=== PATIENT | female | born 1955 | race Caucasian/White ===

== ENCOUNTER 2019-06-29 16:36 | Inpatient (IN) | payer BC ==
[2019-06-29] MEDS ORDERED: SODIUM CHLORIDE 0.9% 1,000 ML IV STA (16:49)
[2019-06-29] MEDS ORDERED: DIAZEPAM 5 MG/ML 2 ML INJ IVP STA (17:05)
--- NOTE | 2019-06-29 17:30 | ED ---
Chest Pain HPI - General Chief Complaint: Chest Pain Stated Complaint: ABNORMAL LABS Time Seen by Provider: 06/29/19 16:49 Source: patient, RN notes reviewed, old records reviewed Mode of arrival: ambulatory Limitations: no limitations - History of Present Illness Initial Comments: This is a 63-year-old female the ER for evaluation. Patient presents today for evaluation with regards to multiple complaints headache chest pain weakness not feeling well. Patient did have outpatient laboratory increased renal function. He has not been feeling well for days now. She had some bilateral knee pain which she was getting injections for. Patient is is been feeling increasingly weak lately no recent change in medications no recent hospital admissions. Patient states she is he does see chiropractor for back pain but she was unable to make it feels appointments this week MD Complaint: chest pain, other (Headache back pain) -: days(s) Onset: during rest, during exertion Pain Location: substernal (Patient believes it anxiety related) Pain Radiation: none Severity: mild Severity scale (1-10): 3 Quality: heaviness Consistency: intermittent, now resolved Improves With: nothing Worsens With: nothing Context: recent illness Anginal Symptoms: dyspnea Other Symptoms: cough Treatments Prior to Arrival: none - Related Data Home Medications Medication Instructions Recorded Confirmed Colchicine [Colcrys] 0.6 mg PO DAILY 12/21/17 06/29/19 Enalapril [Vasotec] 2.5 mg PO DAILY 12/21/17 06/29/19 Ergocalciferol (Vitamin D2) 50,000 unit PO WE 12/21/17 06/29/19 [Vitamin D2] Levocetirizine Dihydrochloride 5 mg PO HS 12/21/17 06/29/19 Rosuvastatin [Crestor] 10 mg PO HS 12/21/17 06/29/19 Torsemide [Demadex] 20 mg PO BID 12/21/17 06/29/19 sitaGLIPtin [Januvia] 100 mg PO DAILY 12/21/17 06/29/19 oxyCODONE ER [OxyCONTIN] 20 mg PO TID 09/19/18 06/29/19 Gabapentin 600 mg PO TID 06/29/19 06/29/19 Isosorbide Mononitrate ER [Imdur] 30 mg PO DAILY 06/29/19 06/29/19 Nitroglycerin Sl Tabs [Nitrostat] 0.4 mg SUBLINGUAL Q5M PRN 06/29/19 06/29/19 Allergies Allergy/AdvReac Type Severity Reaction Status Date / Time adhesive Allergy Rash/Hives Verified 06/29/19 16:58 Sulfa (Sulfonamide Allergy Anaphylaxis Verified 06/29/19 16:58 Antibiotics) Review of Systems ROS Statement: Those systems with pertinent positive or pertinent negative responses have been documented in the HPI. ROS Other: All systems not noted in ROS Statement are negative. EKG Findings - EKG Comments: EKG Findings:: EKG shows sinus rhythm rate of 89, SC 180, QRS 150, QTc 470 Past Medical History Past Medical History: Diabetes Mellitus, Osteoarthritis (OA), Renal Disease Additional Past Medical History / Comment(s): states back pain, current "creacked bone in left ankle wrapped with [place] wrap CURRENTLY USING CRUTCHES broke left ankle aug 26 2018. in boot History of Any Multi-Drug Resistant Organisms: None Reported Past Surgical History: Appendectomy, Section, Cholecystectomy, Tonsillectomy, Tubal Ligation Additional Past Surgical History / Comment(s): carpal tunnel both wrists,shoulder surgery Past Anesthesia/Blood Transfusion Reactions: No Reported Reaction Past Psychological History: No Psychological Hx Reported Smoking Status: Former smoker Past Alcohol Use History: Occasional Past Drug Use History: None Reported - Past Family History Mother Family Medical History: Cancer, Coronary Artery Disease (CAD), Diabetes Mellitus Father Family Medical History: Coronary Artery Disease (CAD), Diabetes Mellitus General Exam Limitations: no limitations General appearance: alert, in no apparent distress Head exam: Present: atraumatic, normocephalic, normal inspection Eye exam: Present: normal appearance, PERRL, EOMI. Absent: scleral icterus, conjunctival injection, periorbital swelling ENT exam: Present: normal exam, mucous membranes moist Neck exam: Present: normal inspection. Absent: tenderness, meningismus, lymphadenopathy Respiratory exam: Present: normal lung sounds bilaterally. Absent: respiratory distress, wheezes, rales, rhonchi, stridor Cardiovascular Exam: Present: regular rate, normal rhythm, normal heart sounds. Absent: systolic murmur, diastolic murmur, rubs, gallop, clicks GI/Abdominal exam: Present: soft, normal bowel sounds. Absent: distended, tenderness, guarding, rebound, rigid Extremities exam: Present: normal inspection, full ROM, normal capillary refill. Absent: tenderness, pedal edema, joint swelling, calf tenderness Back exam: Present: normal inspection Neurological exam: Present: alert, oriented X3, CN II-XII intact Psychiatric exam: Present: normal affect, normal mood Skin exam: Present: warm, dry, intact, normal color. Absent: rash Course Vital Signs 06/29/19 06/29/19 16:43 18:00 Temperature 98.5 F Pulse Rate 100 81 Respiratory 22 18 Rate Blood Pressure 118/63 117/84 O2 Sat by Pulse 94 L 95 Oximetry - Reevaluation(s) Reevaluation #1: 06/29/19 19:05 Medical records reviewed Reevaluation #2: 06/29/19 19:05 Patient is having persistent chest pain no EKG changes elevated troponin Chest Pain MDM - MDM 63 female the ER for evaluation patient presents today for evaluation of chest pain not feeling well place she's having some anxiety. Patient having elevated troponin and non-ST elevated OH will admit for cardiac observation Critical Care Time Critical Care Time: Yes Total Critical Care Time: 31 Disposition Clinical Impression: NSTEMI (non-ST elevated myocardial infarction), Chest pain, ARF (acute renal failure) Disposition: ADMITTED IP TO THIS [facility] Condition: Serious Is patient prescribed a controlled substance at d/c from ED?: No Referrals: Darron Mcgee MD [Primary Care Provider] - 1-2 days
[2019-06-29 17:48] LABS: Anisocytosis Slight; HCT 27.9 % (34.0-46.0); MCH 27.6 pg (25.0-35.0); MCHC 34.6 g/dL (31.0-37.0); MCV 79.9 fL (80.0-100.0); Mean Platelet Volume 7.4; Microcytosis Slight; Platelet Count 354 k/uL (150-450); Poikilocytosis Slight; RBC 3.49 m/uL (3.80-5.40); RDW 17.6 % (11.5-15.5); WBC 9.7 k/uL (3.8-10.6)
[2019-06-29 17:49] LABS: HGB 9.6 gm/dL (11.4-16.0)
[2019-06-29 17:50] LABS: INR 0.9 (<1.2); Partial Thromboplastin Time 23.3 sec (22.0-30.0)
[2019-06-29 17:56] LABS: Albumin 3.2 g/dL (3.5-5.0); Calcium 8.6 mg/dL (8.4-10.2); Magnesium 1.6 mg/dL (1.6-2.3); Total Bilirubin 0.5 mg/dL (0.2-1.3); Total Protein 5.9 g/dL (6.3-8.2)
--- NOTE | 2019-06-29 17:59 | CT ---
EXAMINATION TYPE: CT brain wo con DATE OF EXAM: 06/29/2019 COMPARISON: None HISTORY: Weakness. CT DLP: 1098.4 mGycm Automated exposure control for dose reduction was used. FINDINGS: There is mild cerebral atrophy. There is no mass effect nor midline shift. There is no sign of intrac ranial hemorrhage. Calvarium is intact. IMPRESSION: NEGATIVE CT SCAN OF THE BRAIN.
--- NOTE | 2019-06-29 18:00 | XR ---
EXAMINATION TYPE: XR chest 2V DATE OF EXAM: 06/29/2019 COMPARISON: NONE HISTORY: Chest pain TECHNIQUE: Frontal and lateral views of the chest are obtained. FINDINGS: There is elevated right diaphragm. There is mild coarsening of interstitial markings. Hear t size is normal. Bony thorax is intact. There is no heart failure. IMPRESSION: Poor inspiration with atelectasis at the lung bases. No heart failure.
[2019-06-29 18:16] LABS: Band Neutrophils % 4 %; Eosinophils # (M) 0.29 k/uL (0-0.7); Hypersegmented Neutrophils Present; Lymphocytes # (M) 1.36 k/uL (1.0-4.8); Metamyelocytes # (M) 0.19 k/uL (0); Metamyelocytes % 2 %; Monocytes # (M) 0.97 k/uL (0-1.0); Neutrophils % (M) 68 %; Nucleated Red Blood Cells 0 /100 WBC (0-0); Total Cells Counted 200
[2019-06-29 18:17] LABS: Polychromasia Present
[2019-06-29] MEDS ORDERED: ASPIRIN 81 MG PO STA (19:02)
[2019-06-29] MEDS ORDERED: HEPARIN SODIUM,PORCINE 5,000 UNIT/ML 1 ML VIAL IV ONE (19:02)
[2019-06-29] MEDS ORDERED: HEPARIN SODIUM,PORCINE 5,000 UNIT/ML 1 ML VIAL IV PRN (19:02)
[2019-06-29] MEDS ORDERED: HEPARIN SOD,PORK IN 0.45% NACL 25,000 UNIT in 0.45% NACL 1 250ML.BAG IV SCH (19:15)
[2019-06-29 20:28] LABS: Glucose,Whole Blood 190 mg/dL (75-99)
[2019-06-29 20:56] VITALS: BMI 30.7
[2019-06-29] MEDS ORDERED: COLCHICINE 0.6 MG EACH PO SCH (21:30)
[2019-06-29] MEDS ORDERED: TORSEMIDE 20 MG TAB PO SCH (21:30)
[2019-06-29] MEDS: ATORVASTATIN 10 MG TAB PO SCH (21:43)
[2019-06-29] MEDS: NITROGLYCERIN SL TABS 0.4 MG TAB SUBLINGUAL PRN ×2 (22:05→22:11)
[2019-06-29] MEDS: LORATADINE 10 MG TAB PO SCH (22:06)
[2019-06-29] MEDS: METOPROLOL TARTRATE 25 MG TAB PO SCH (22:06)
[2019-06-29] MEDS: oxyCODONE ER 20 MG TAB.ER.12H PO SCH (22:07)
[2019-06-29] MEDS: GABAPENTIN 300 MG CAP PO SCH (22:07)
[2019-06-30] MEDS: NITROGLYCERIN SL TABS 0.4 MG TAB SUBLINGUAL PRN ×6 (03:42→17:12)
[2019-06-30] MEDS ORDERED: HYDROmorphone 0.5 MG/0.5 ML SYRINGE IVP STA (04:14)
[2019-06-30] MEDS: NITROGLYCERIN OINT 1 INCH/GM PACKET TOPICAL SCH ×2 (04:28→06:19)
[2019-06-30] MEDS ORDERED: NITROGLYCERIN OINT 1 INCH/GM PACKET TOPICAL SCH (06:00)
[2019-06-30 06:20] LABS: Glucose,Whole Blood 116 mg/dL (75-99)
[2019-06-30 06:55] LABS: Platelet Count 318 k/uL (150-450)
[2019-06-30 07:15] LABS: Cholesterol 87 mg/dL (<200); HDL Cholesterol 27 mg/dL (40-60); LDL Cholesterol,Calculated 19 mg/dL (0-99); Triglycerides 206 mg/dL (<150)
[2019-06-30] MEDS ORDERED: TORSEMIDE 20 MG TAB PO SCH (09:00)
[2019-06-30] MEDS ORDERED: ASPIRIN 325 MG TAB PO SCH (09:00)
[2019-06-30] MEDS: GABAPENTIN 300 MG CAP PO SCH ×3 (09:16→20:12)
[2019-06-30] MEDS: COLCHICINE 0.6 MG EACH PO SCH (09:16)
[2019-06-30] MEDS: METOPROLOL TARTRATE 25 MG TAB PO SCH (09:17)
[2019-06-30] MEDS: oxyCODONE ER 20 MG TAB.ER.12H PO SCH ×3 (09:18→22:57)
[2019-06-30] MEDS ORDERED: SODIUM CHLORIDE 0.9% 1,000 ML in EMPTY BAG 1 BAG IV ONE (09:18)
[2019-06-30] MEDS ORDERED: ATORVASTATIN 80 MG TAB PO STA (09:18)
[2019-06-30] MEDS ORDERED: ALPRAZolam 0.25 MG TAB PO PRN (09:18)
[2019-06-30] MEDS ORDERED: ALPRAZolam 0.5 MG TAB PO PRN (09:18)
--- NOTE | 2019-06-30 09:40 | P.CRDCN ---
History of Present Illness Consult date: 06/30/19 Requesting physician: Lynn Duggan Reason for Consult (text): NSTEMI Chief complaint: feeling tired, recurrent chest pain History of present illness: Disciplines 63-year-old female patient who follows with Dr. Villagomez in the office. She has a history of hyperlipidemia, hypertension, PVD, diabetes, RA, CKD, and history of cardiac catheterization in 2006 which showed a 20% lesion in the mid RCA. She was recently seen in the office with complaints of recurrent chest discomfort radiating to the neck and back that occurred predominantly with mental stress. Symptoms were requiring use of nitroglycerin at home. She was scheduled to undergo cardiac catheterization within the next week. Presented to the emergency department after being called by her primary care physician and told that her kidney function was down. Overall over the past several days she's been feeling very tired and wants to sleep quite a bit. She continues to have recurrent chest discomfort and at times taking up to 6 nitroglycerin tablets. She says she cannot recall any of the day on Tuesday and is unsure why. EKG on admission showed sinus rhythm with a right bundle branch block with mild T-wave changes compared to EKG done on the of this month in the office. Labs on admission showed hemoglobin 9.6 which is down from 11.5. BUN of 41 and creatinine of 1.27 which are stable. NT proBNP is elevated at 4330. Troponins have been elevated at 0.128, 0.16 and 0.098. She continues to have recurrent chest discomfort which is at times relieved with a glycerin. Radiates posteriorly with some worsening in her symptoms with deep inspiration. She's had no complaints of shortness of breath, orthopnea or PND. She does have mild edema which she attributes to recent ankle surgery. She denies bleeding. She did have some nausea on Tuesday night which she thinks is related to something she ate. She's had no diaphoresis, dizziness or lightheadedness, and no palpitations. Past Medical History Past Medical History: Diabetes Mellitus, Osteoarthritis (OA), Renal Disease Additional Past Medical History / Comment(s): states back pain, current "creacked bone in left ankle wrapped with [place] wrap CURRENTLY USING CRUTCHES broke left ankle aug 26 2018. History of Any Multi-Drug Resistant Organisms: None Reported Past Surgical History: Appendectomy, Section, Cholecystectomy, Heart Catheterization, Tonsillectomy, Tubal Ligation Additional Past Surgical History / Comment(s): carpal tunnel both wrists,shoulder surgery, ankle reconstruction. Past Anesthesia/Blood Transfusion Reactions: No Reported Reaction Past Psychological History: No Psychological Hx Reported Smoking Status: Former smoker Past Alcohol Use History: Occasional Additional Past Alcohol Use History / Comment(s): Quit smoking 40 yrs ago, smoked 2ppd for 10 yrs. Past Drug Use History: None Reported - Past Family History Mother Family Medical History: Cancer, Coronary Artery Disease (CAD), Diabetes Mellitus Father Family Medical History: Coronary Artery Disease (CAD), Diabetes Mellitus Medications and Allergies Home Medications Medication Instructions Recorded Confirmed Type Colchicine [Colcrys] 0.6 mg PO BID 12/21/17 06/29/19 History Enalapril [Vasotec] 2.5 mg PO DAILY 12/21/17 06/29/19 History Ergocalciferol (Vitamin D2) 50,000 unit PO WE 12/21/17 06/29/19 History [Vitamin D2] Levocetirizine Dihydrochloride 5 mg PO HS 12/21/17 06/29/19 History Rosuvastatin [Crestor] 10 mg PO HS 12/21/17 06/29/19 History Torsemide [Demadex] 20 mg PO BID 12/21/17 06/29/19 History sitaGLIPtin [Januvia] 100 mg PO DAILY 12/21/17 06/29/19 History oxyCODONE ER [OxyCONTIN] 20 mg PO TID 09/19/18 06/29/19 History Gabapentin 600 mg PO TID 06/29/19 06/29/19 History Isosorbide Mononitrate ER [Imdur] 30 mg PO DAILY 06/29/19 06/29/19 History Nitroglycerin Sl Tabs [Nitrostat] 0.4 mg SUBLINGUAL Q5M PRN 06/29/19 06/29/19 History Allergies Allergy/AdvReac Type Severity Reaction Status Date / Time adhesive Allergy Rash/Hives Verified 06/29/19 16:58 Sulfa (Sulfonamide Allergy Anaphylaxis Verified 06/29/19 16:58 Antibiotics) Physical Exam Vitals: Vital Signs Temp Pulse Pulse Resp BP BP Pulse Ox 06/30/19 09:10 97.6 F 64 16 100/53 98 06/30/19 09:03 68 88/47 06/30/19 08:58 64 108/56 06/30/19 08:53 67 113/58 06/30/19 04:26 107/59 06/30/19 03:56 63 97/53 06/30/19 03:50 68 15 101/59 93 L 06/30/19 03:43 65 15 107/51 96 06/29/19 23:32 98.4 F 78 16 111/52 95 06/29/19 22:13 84 110/54 06/29/19 22:03 79 16 128/60 95 06/29/19 20:43 98.1 F 85 16 120/57 96 06/29/19 19:31 90 18 117/84 97 06/29/19 18:00 81 18 117/84 95 06/29/19 16:43 98.5 F 100 22 118/63 94 L Intake and Output 06/29/19 06/30/19 06/30/19 22:59 06:59 14:59 Other: Voiding Method Toilet # Voids 3 Weight 81.193 kg 90.3 kg PHYSICAL EXAMINATION: HEENT: Head is atraumatic, normocephalic. Pupils equal, round. Neck is supple. There is no elevated jugular venous pressure. HEART EXAMINATION: Heart sounds regular, S1 and S2 with a systolic murmur at the base. CHEST EXAMINATION: Lungs are clear to auscultation and precussion. No chest wall tenderness is noted on palpation or with deep breathing. ABDOMEN: Soft, nontender. Bowel sounds are heard. No organomegaly noted. EXTREMITIES: 2+ peripheral pulses with no evidence of peripheral edema and no calf tenderness noted. NEUROLOGIC patient is awake, alert and oriented x3. . Results 06/30/19 05:44 06/29/19 17:25 Cardiac Enzymes 06/29/19 06/29/19 06/29/19 Range/Units 17:25 17:25 23:14 AST 42 H (14-36) U/L Troponin I 0.128 H* 0.116 H* (0.000-0.034) ng/mL 06/30/19 Range/Units 05:44 AST (14-36) U/L Troponin I 0.098 H* (0.000-0.034) ng/mL Coagulation 06/29/19 06/29/19 Range/Units 17:25 23:14 PT 10.0 (9.0-12.0) sec APTT 23.3 23.8 (22.0-30.0) sec Lipids 06/30/19 Range/Units 05:44 Triglycerides 206 H (<150) mg/dL Cholesterol 87 (<200) mg/dL HDL Cholesterol 27 L (40-60) mg/dL CBC 06/29/19 06/30/19 Range/Units 17:25 05:44 WBC 9.7 (3.8-10.6) k/uL RBC 3.49 L (3.80-5.40) m/uL Hgb 9.6 L D (11.4-16.0) gm/dL Hct 27.9 L (34.0-46.0) % Plt Count 354 318 (150-450) k/uL Comprehensive Metabolic Panel 06/29/19 Range/Units 17:25 Sodium 133 L (137-145) mmol/L Potassium 4.0 (3.5-5.1) mmol/L Chloride 96 L (98-107) mmol/L Carbon Dioxide 29 (22-30) mmol/L BUN 41 H (7-17) mg/dL Creatinine 1.27 H (0.52-1.04) mg/dL Glucose 128 H (74-99) mg/dL Calcium 8.6 (8.4-10.2) mg/dL AST 42 H (14-36) U/L ALT 75 H (9-52) U/L Alkaline Phosphatase 53 (38-126) U/L Total Protein 5.9 L (6.3-8.2) g/dL Albumin 3.2 L (3.5-5.0) g/dL Current Medications Generic Name Dose Route Start Last Admin Trade Name Freq PRN Reason Stop Dose Admin Aspirin 325 mg 06/30/19 09:00 Aspirin PO DAILY [facility] Atorvastatin Calcium 20 mg 06/29/19 21:30 06/29/19 21:43 Lipitor PO Not Given HS [facility] Colchicine 0.6 mg 06/30/19 09:00 Colcrys PO DAILY TE Gabapentin 600 mg 06/29/19 22:00 06/29/19 22:07 Neurontin PO 600 mg TID TE Administration Heparin Sodium (Porcine) 0 unit 06/29/19 19:02 Heparin IV Q6HR PRN Low PTT Protocol Heparin Sodium/Sodium Chloride 250 mls @ 9.743 mls/hr 06/29/19 19:15 06/29/19 19:22 25,000 unit/ Sodium Chloride IV Not Given .Q24H TE Protocol 12 UNITS/KG/HR Loratadine 10 mg 06/29/19 21:30 06/29/19 22:06 Claritin PO 10 mg HS TE Administration Metoprolol Tartrate 25 mg 06/29/19 21:00 06/29/19 22:06 Lopressor PO 25 mg BID TE Administration Nitroglycerin 0.4 mg 06/29/19 19:02 06/30/19 08:59 Nitrostat SUBLINGUAL 0.4 mg Q5M PRN Administration Chest Pain Nitroglycerin 0.5 inch 06/30/19 04:22 06/30/19 06:19 Nitro-Bid Oint TOPICAL Not Given Q6HR TE Oxycodone HCl 20 mg 06/29/19 22:00 06/29/19 22:07 Oxycontin 20mg E.R. PO 20 mg TID TE Administration Torsemide 10 mg 06/30/19 09:00 Demadex PO BID@0900,1600 TE Intake and Output 06/29/19 06/30/19 06/30/19 22:59 06:59 14:59 Other: Voiding Method Toilet # Voids 3 Weight 81.193 kg 90.3 kg 06/30/19 05:44 06/29/19 17:25 Assessment and Plan Assessment: #1 symptoms of recurrent chest pain with troponin elevation and EKG changes #2 diabetes mellitus #3 hyperlipidemia #4 rheumatoid arthritis #5 chronic kidney disease #6 known 20% lesion in the mid RCA seen on cardiac catheterization from 2006 Plan: From securities lending trader perspective, we will obtain a 2-D echo with Doppler. We will schedule the patient to undergo left heart cath today with possible PCI. The procedure has been explained to the patient including the risks, benefits, side effects and alternative therapies as well as potential outcomes. The patient is agreeable to proceed with the procedure. Further recommendations will be based on the findings of cardiac catheterization. TIP CEMENTER note has been reviewed, I agree with a documented findings and plan of care. Patient was seen and examined.
--- NOTE | 2019-06-30 09:48 | P.HPIM ---
History of Present Illness Patient is a pleasant was 4-year-old female came in with compensative chest pressure like sensation under the breast radiating to the neck area has been going on for few days worsens when she gets anxious not associated with exertion denied any pleuritic competent of chest pain not associated with food moderate amount of chest pain. Denied any diaphoresis nausea lightheadedness. Patient although does have headache symptoms dementia chest pain. Patient to be was supposed to get an outpatient cardiac catheterization because of her EKG changes as per the patient in the past. Patient had a cardiac ablation in 2011 which did not show any significant atherosclerotic occlusive disease that needed intervention. Patient has minimally elevated troponin although patient does have elevated serum creatinine of 1.2 which is around her baseline. Patient is on multiple medications that can affect her kidney including RANDY inhibitor and Demadex. Patient clinically is not in heart failure although patient has elevated BNP doesn't have any significant JVD. Chest x-ray did not show any pulmonary edema. Patient is also bit hyponatremic because of which I'm cutting down on the Demadex dose RANDY inhibitor is being temperately held because of the renal failure which is mostly chronic. Patient has minimal stable elevation of troponins but the can be from kidney disease. Review of Systems REVIEW OF SYSTEMS: CONSTITUTIONAL: No fever, no malaise, no fatigue. HEENT: No recent visual problems or hearing problems. Denied any sore throat. CARDIOVASCULAR: As mentioned above PULMONARY: No shortness of breath, no cough, no hemoptysis. GASTROINTESTINAL: No diarrhea, no nausea, no vomiting, no abdominal pain. NEUROLOGICAL: No headaches, no weakness, no numbness. HEMATOLOGICAL: Denies any bleeding or petechiae. GENITOURINARY: Denies any burning micturition, frequency, or urgency. MUSCULOSKELETAL/RHEUMATOLOGICAL: Denies any joint pain, swelling, or any muscle pain. ENDOCRINE: Denies any polyuria or polydipsia. The rest of the 14-point review of systems is negative. Past Medical History Past Medical History: Diabetes Mellitus, Osteoarthritis (OA), Renal Disease Additional Past Medical History / Comment(s): states back pain, current "creacked bone in left ankle wrapped with randy wrap CURRENTLY USING CRUTCHES broke left ankle aug 26 2018. History of Any Multi-Drug Resistant Organisms: None Reported Past Surgical History: Appendectomy, Section, Cholecystectomy, Heart Catheterization, Tonsillectomy, Tubal Ligation Additional Past Surgical History / Comment(s): carpal tunnel both wrists,shoulder surgery, ankle reconstruction. Past Anesthesia/Blood Transfusion Reactions: No Reported Reaction Past Psychological History: No Psychological Hx Reported Smoking Status: Former smoker Past Alcohol Use History: Occasional Additional Past Alcohol Use History / Comment(s): Quit smoking 40 yrs ago, smoked 2ppd for 10 yrs. Past Drug Use History: None Reported - Past Family History Mother Family Medical History: Cancer, Coronary Artery Disease (CAD), Diabetes Mellitus Father Family Medical History: Coronary Artery Disease (CAD), Diabetes Mellitus Medications and Allergies Home Medications Medication Instructions Recorded Confirmed Type Colchicine [Colcrys] 0.6 mg PO BID 12/21/17 06/29/19 History Enalapril [Vasotec] 2.5 mg PO DAILY 12/21/17 06/29/19 History Ergocalciferol (Vitamin D2) 50,000 unit PO WE 12/21/17 06/29/19 History [Vitamin D2] Levocetirizine Dihydrochloride 5 mg PO HS 12/21/17 06/29/19 History Rosuvastatin [Crestor] 10 mg PO HS 12/21/17 06/29/19 History Torsemide [Demadex] 20 mg PO BID 12/21/17 06/29/19 History sitaGLIPtin [Januvia] 100 mg PO DAILY 12/21/17 06/29/19 History oxyCODONE ER [OxyCONTIN] 20 mg PO TID 09/19/18 06/29/19 History Gabapentin 600 mg PO TID 06/29/19 06/29/19 History Isosorbide Mononitrate ER [Imdur] 30 mg PO DAILY 06/29/19 06/29/19 History Nitroglycerin Sl Tabs [Nitrostat] 0.4 mg SUBLINGUAL Q5M PRN 06/29/19 06/29/19 History Allergies Allergy/AdvReac Type Severity Reaction Status Date / Time adhesive Allergy Rash/Hives Verified 06/29/19 16:58 Sulfa (Sulfonamide Allergy Anaphylaxis Verified 06/29/19 16:58 Antibiotics) Physical Exam Vitals: Vital Signs Temp Pulse Pulse Resp BP BP Pulse Ox 06/30/19 09:10 97.6 F 64 16 100/53 98 06/30/19 09:03 68 88/47 06/30/19 08:58 64 108/56 06/30/19 08:53 67 113/58 06/30/19 04:26 107/59 06/30/19 03:56 63 97/53 06/30/19 03:50 68 15 101/59 93 L 06/30/19 03:43 65 15 107/51 96 06/29/19 23:32 98.4 F 78 16 111/52 95 06/29/19 22:13 84 110/54 06/29/19 22:03 79 16 128/60 95 06/29/19 20:43 98.1 F 85 16 120/57 96 06/29/19 19:31 90 18 117/84 97 06/29/19 18:00 81 18 117/84 95 06/29/19 16:43 98.5 F 100 22 118/63 94 L Intake and Output 06/29/19 06/30/19 06/30/19 22:59 06:59 14:59 Other: Voiding Method Toilet # Voids 3 Weight 81.193 kg 90.3 kg PHYSICAL EXAMINATION: GENERAL: The patient is alert and oriented x3, not in any acute distress. Well developed, well nourished. HEENT: Pupils are round and equally reacting to light. EOMI. No scleral icterus. No conjunctival pallor. Normocephalic, atraumatic. No pharyngeal erythema. No thyromegaly. CARDIOVASCULAR: S1 and S2 present. No murmurs, rubs, or gallops. PULMONARY: Chest is clear to auscultation, no wheezing or crackles. ABDOMEN: Soft, nontender, nondistended, normoactive bowel sounds. No palpable organomegaly. MUSCULOSKELETAL: No joint swelling or deformity. EXTREMITIES: No cyanosis, clubbing, or pedal edema. NEUROLOGICAL: Gross neurological examination did not reveal any focal deficits. SKIN: No rashes. Results CBC & Chem 7: 06/30/19 05:44 06/29/19 17:25 Labs: Abnormal Lab Results - Last 24 Hours (Table) 06/29/19 06/29/19 06/29/19 Range/Units 17:25 17:25 17:25 RBC 3.49 L (3.80-5.40) m/uL Hgb 9.6 L D (11.4-16.0) gm/dL Hct 27.9 L (34.0-46.0) % MCV 79.9 L (80.0-100.0) fL RDW 17.6 H (11.5-15.5) % Metamyelocytes # (Man) 0.19 H (0) k/uL Sodium 133 L (137-145) mmol/L Chloride 96 L (98-107) mmol/L BUN 41 H (7-17) mg/dL Creatinine 1.27 H (0.52-1.04) mg/dL Glucose 128 H (74-99) mg/dL POC Glucose (mg/dL) (75-99) mg/dL AST 42 H (14-36) U/L ALT 75 H (9-52) U/L Troponin I 0.128 H* (0.000-0.034) ng/mL Total Protein 5.9 L (6.3-8.2) g/dL Albumin 3.2 L (3.5-5.0) g/dL Triglycerides (<150) mg/dL HDL Cholesterol (40-60) mg/dL 06/29/19 06/29/19 06/30/19 Range/Units 20:27 23:14 05:44 RBC (3.80-5.40) m/uL Hgb (11.4-16.0) gm/dL Hct (34.0-46.0) % MCV (80.0-100.0) fL RDW (11.5-15.5) % Metamyelocytes # (Man) (0) k/uL Sodium (137-145) mmol/L Chloride (98-107) mmol/L BUN (7-17) mg/dL Creatinine (0.52-1.04) mg/dL Glucose (74-99) mg/dL POC Glucose (mg/dL) 190 H (75-99) mg/dL AST (14-36) U/L ALT (9-52) U/L Troponin I 0.116 H* 0.098 H* (0.000-0.034) ng/mL Total Protein (6.3-8.2) g/dL Albumin (3.5-5.0) g/dL Triglycerides (<150) mg/dL HDL Cholesterol (40-60) mg/dL 06/30/19 06/30/19 Range/Units 05:44 06:18 RBC (3.80-5.40) m/uL Hgb (11.4-16.0) gm/dL Hct (34.0-46.0) % MCV (80.0-100.0) fL RDW (11.5-15.5) % Metamyelocytes # (Man) (0) k/uL Sodium (137-145) mmol/L Chloride (98-107) mmol/L BUN (7-17) mg/dL Creatinine (0.52-1.04) mg/dL Glucose (74-99) mg/dL POC Glucose (mg/dL) 116 H (75-99) mg/dL AST (14-36) U/L ALT (9-52) U/L Troponin I (0.000-0.034) ng/mL Total Protein (6.3-8.2) g/dL Albumin (3.5-5.0) g/dL Triglycerides 206 H (<150) mg/dL HDL Cholesterol 27 L (40-60) mg/dL Thrombosis Risk Factor Assmnt - Choose All That Apply Any of the Below Risk Factors Present?: Yes Each Factor Represents 1 point: Obesity (BMI >25), Swollen legs (current) Each Risk Factor Represents 2 Points: Age 61-74 years Other congenital or acquired thrombophilia - If yes, enter type in comment: No Thrombosis Risk Factor Assessment Total Risk Factor Score: 4 Thrombosis Risk Factor Assessment Level: Moderate Risk Assessment and Plan Plan: Chest pain, possibly of non-ST elevation microinfarction cannot be ruled out: Patient will undergo cardiac catheterization today as per cardiology. Patient is declining heparin at this time -Type 2 diabetes mellitus -Congestive heart failure as per the patient ejection fraction is not known patient is not in acute exacerbation -Acute renal failure probably prerenal azotemia secondary to excessive diuretic therapy although I cannot rule out chronic kidney disease stage II from diabetes mellitus RANDY inhibitor will be temporally held -Rheumatoid arthritis -Hyponatremia secondary to diuretics will cut down the dose of diuretic DVT prophylaxis early ambulation
[2019-06-30] MEDS ORDERED: IV FLUID CONTINUATION 950 ML IV ONE (11:05)
[2019-06-30] MEDS ORDERED: LIDOCAINE 1% INJ 10MG/ML (20 ML MDV) ONE (11:21)
[2019-06-30] MEDS ORDERED: VERAPAMIL 2.5 MG/ML 2 ML AMP ONE (11:22)
[2019-06-30] MEDS ORDERED: HEPARIN SODIUM 1,000 UN/ML (10ML VL) ONE (11:23)
[2019-06-30] MEDS ORDERED: fentaNYL (PF) 50 MCG/ML 2 ML AMP ONE (11:25)
[2019-06-30] MEDS: fentaNYL (PF) 50 MCG/ML 2 ML AMP IV ONE ×2 (11:35→11:40)
[2019-06-30] MEDS ORDERED: LIDOCAINE 1% INJ 10MG/ML (20 ML MDV) SQ ONE (11:46)
[2019-06-30] MEDS ORDERED: VERAPAMIL SYRINGE (5 MG/10 ML) INTRAARTER ONE (11:48)
[2019-06-30] MEDS ORDERED: MIDAZOLAM (PF) 2 MG/2 ML VIAL IV ONE (11:50)
[2019-06-30] MEDS ORDERED: IOPAMIDOL-370 125ML BTL INJ ONE (12:08)
[2019-06-30] MEDS ORDERED: CLOPIDOGREL 75 MG TAB ONE (12:10)
[2019-06-30] MEDS ORDERED: CLOPIDOGREL 75 MG TAB PO ONE (12:15)
[2019-06-30] MEDS ORDERED: RX INFO: IV CONTRAST WAS GIVEN 1 EACH MISC MISCELLANE PRN (12:20)
[2019-06-30] MEDS ORDERED: ISOSORBIDE MONONITRATE ER 30 MG TAB.ER.24H PO SCH (12:30)
[2019-06-30] MEDS ORDERED: SODIUM CHLORIDE 0.9% 1,000 ML IV SCH (12:30)
--- NOTE | 2019-06-30 15:50 | ECHOF ---
Referral Reason:NSTEMI MEASUREMENTS -------- HEIGHT: 162.6 cm WEIGHT: 90.3 kg BP: RVIDd: 4.3 cm (< 3.3) IVSd: 1.3 cm (0.6 - 1.1) LVIDd: 4.4 cm (3.9 - 5.3) LVPWd: 1.5 cm (0.6 - 1.1) IVSs: 1.7 cm LVIDs: 2.9 cm LVPWs: 1.2 cm LA Diam: 3.9 cm (2.7 - 3.8) LAESV Index (A-L): 27.29 ml/m Ao Diam: 3.0 cm (2.0 - 3.7) AV Cusp: 2.0 cm (1.5 - 2.6) LA Diam: 3.4 cm (2.7 - 3.8) MV EXCURSION: 18.351 mm (> 18.000) MV EF SLOPE: 101 mm/s (70 - 150) EPSS: 0.3 cm MV E Giuliano: 0.55 m/s MV DecT: 223 ms MV A Giuliano: 0.76 m/s MV E/A Ratio: 0.72 RAP: 5.00 mmHg RVSP: 50.10 mmHg FINDINGS -------- Sinus rhythm. This was a technically adequate study. The left ventricular size is normal. There is mild concentric left ventricular hypertrophy. Overa ll left ventricular systolic function is low-normal with, an EF between 50 - 55 %. The diastolic fi lling pattern is normal for the age of the patient 11.83. Basal inferior LV wall motion is hypokine tic. The right ventricle is moderately enlarged. Normal LA size by volume 22+/-6 ml/m2. The right atrial size is normal. There is mild aortic valve sclerosis. There is no evidence of aortic regurgitation. Mild mitral annular calcification present. Mild mitral regurgitation is present. Unyb-oj-[id number] tricuspid regurgitation present. There is moderate pulmonary hypertension. The r ight ventricular systolic pressure, as measured by Doppler, is 50.10mmHg. Trace/mild (physiologic) pulmonic regurgitation. The aortic root size is normal. There is no pericardial effusion. CONCLUSIONS -------- 1. Sinus rhythm. 2. This was a technically adequate study. 3. The left ventricular size is normal. 4. Overall left ventricular systolic function is low-normal with, an EF between 50 - 55 %. 5. The diastolic filling pattern is normal for the age of the patient 11.83 6. Basal inferior LV wall motion is hypokinetic. 7. The right ventricle is moderately enlarged. 8. Normal LA size by volume 22+/-6 ml/m2. 9. There is mild aortic valve sclerosis. 10. Mild mitral annular calcification present. 11. Mild mitral regurgitation is present. 12. Ulic-xa-ermxdsqa tricuspid regurgitation present. 13. There is moderate pulmonary hypertension. 14. Trace/mild (physiologic) pulmonic regurgitation. 15. The aortic root size is normal. 16. There is no pericardial effusion. MERCHANDISER SEASONAL: Manuela Duran RDCS
[2019-06-30 16:32] LABS: Glucose,Whole Blood 150 mg/dL (75-99)
[2019-06-30] MEDS ORDERED: NITROGLYCERIN SL TABS 0.4 MG TAB SUBLINGUAL ONE (16:55)
--- NOTE | 2019-06-30 17:25 | CC ---
CARDIAC CATHETERIZATION REPORT Ms. Edwards is a 63-year-old female with known history of hypertension, hyperlipidemia and diabetes mellitus who presented with symptoms of chest discomfort and minimal troponin elevation. In view of that, recommendation was made regarding cardiac catheterization. The procedure, its risks and complications were discussed with the patient, who was in full understanding and agreement. PROCEDURE DESCRIPTION: Patient was brought to the [facility] in a fasting semi-sedated state after receiving fentanyl and Benadryl and achieving a moderate conscious sedated state. Using Xylocaine anesthesia and Seldinger technique, a 6-Indian sheath was introduced in the right radial artery. Selective right and left coronary angiography was performed using 5-Indian 3-1/2 bend right and left Alireza catheters. Multiple views were taken of the coronary arteries, including hemiaxial views. Following that, a 5-Indian tight pigtail catheter was introduced into left ventricle and pressures were calculated. Following that, catheter and sheath were removed. Hemostasis was obtained with deployment of a TR band. There was no immediate complication. Patient was returned to her room in stable condition. Of note, the patient received 6000 units of intravenous heparin as well as intra-arterial verapamil. FINDINGS: FLUOROSCOPY: There is calcification involving all the coronary arteries, but predominantly the right coronary artery. LEFT MAIN: This is a large-sized vessel bifurcating into left circumflex, left anterior descending artery. Left main coronary artery has no evidence of high-grade stenosis. LEFT ANTERIOR DESCENDING ARTERY: This is a large-sized vessel reaching toward the apex giving rise to a large diagonal branch. The left anterior descending artery in mid segment has a 20% plaque at the takeoff of the diagonal branch. The proximal segment has a 10% plaque. The rest of the vessel has no high-grade stenosis. LCX: This is a nondominant vessel giving rise to a large obtuse marginal branch. The left circumflex as well as its branches has no evidence of obstructive coronary artery disease. RIGHT CORONARY ARTERY: This is a large dominant vessel bifurcating distally into PDA and posterolateral segment and branches. The mid segment of the right coronary artery is heavily calcified. There is evidence of ruptured plaque with a preserved lumen with about 30% to 40% stenosis distally. There is intimal disease without any evidence of high-grade stenosis. LEFT VENTRICULOGRAM: Left ventriculogram was not performed. HEMODYNAMICS: There was no gradient across the aortic valve. The left ventricular end- diastolic pressure was 16 mmHg. CONCLUSION: 1. Calcified coronary arteries. 2. Evidence of ruptured plaque in the mid right coronary artery with preserved lumen and no evidence of high-grade stenosis. 3. Mild disease in the left anterior descending coronary artery. RECOMMENDATIONS: In view of findings and anatomy, I recommend continued medical therapy with aggressive coronary risk modifications, and depending on her progress, further recommendations will be made. Those findings and recommendations were discussed with the patient and her family, who are in full understanding and agreement. Duration of procedure was 21 minutes. MMDIAZL / IJN: [id number] / MINISTERIO
[2019-06-30] MEDS ORDERED: ACETAMINOPHEN TAB 325 MG TAB PO PRN (20:02)
[2019-06-30] MEDS: ATORVASTATIN 10 MG TAB PO SCH (20:12)
[2019-06-30] MEDS: LORATADINE 10 MG TAB PO SCH (20:12)
[2019-06-30 20:20] LABS: Glucose,Whole Blood 127 mg/dL (75-99)
[2019-07-01 06:12] LABS: Anisocytosis Slight; HGB 8.6 gm/dL (11.4-16.0); Hypochromasia Moderate; MCH 27.6 pg (25.0-35.0); MCHC 33.1 g/dL (31.0-37.0); MCV 83.5 fL (80.0-100.0); Mean Platelet Volume 7.2; Platelet Count 296 k/uL (150-450); Poikilocytosis Slight; RBC 3.11 m/uL (3.80-5.40); RDW 17.7 % (11.5-15.5); WBC 7.2 k/uL (3.8-10.6)
[2019-07-01 06:19] LABS: Glucose,Whole Blood 118 mg/dL (75-99)
[2019-07-01 06:21] LABS: Calcium 8.2 mg/dL (8.4-10.2); Potassium 3.9 mmol/L (3.5-5.1)
[2019-07-01 08:39] VITALS: BP 123/55; PULSE 50; RESP 16; TEMP 99
--- NOTE | 2019-07-01 08:43 | P.DS ---
Providers Date of admission: 06/29/19 19:04 Attending physician: Lynn Duggan Consults: 06/29/19 19:02 Consult Physician Urgent Consulting Provider: John Villagomez Consult Reason/Comments: elevTrop Do you want consulting provider notified?: Yes 06/30/19 13:41 Consult Physician Routine Consulting Provider: Daniel Barbour Consult Reason/Comments: r/o GI BLEED Do you want consulting provider notified?: Yes Primary care physician: Darron Mcgee Hospital Course: Patient is a pleasant 61-year-old female came in with the chest pressure and had a cardiac catheterization believed to have non-ST elevation microinfarction, cardiology believes patient has a ruptured plaque in RCA. There is significant calcification at morning both aspirin and Plavix and increase the dose of statin. There is no evidence of heart failure and the echocardiogram patient the came in with acute renal failure which improved with IV fluids. I'll discontinue Demadex as well as an RANDY inhibitor. Patient blood pressure is normal now it was low normal yesterday. Although nursing staff is reporting patient the SATURATIONS ARE LOW WE'LL RECHECK THOUSAND SATURATIONS ARE STILL LOW WE'LL OBTAIN A CHEST X-RAY MAKE SURE PATIENT DOESN'T HAVE ANY PULMONARY EDEMA FROM HOLDING OFF ON DIURETIC THERAPY AND IV FLUIDS. PHYSICAL EXAMINATION: GENERAL: The patient is alert and oriented x3, not in any acute distress. Well developed, well nourished. HEENT: Pupils are round and equally reacting to light. EOMI. No scleral icterus. No conjunctival pallor. Normocephalic, atraumatic. No pharyngeal erythema. No thyromegaly. CARDIOVASCULAR: S1 and S2 present. No murmurs, rubs, or gallops. PULMONARY: Chest is clear to auscultation, no wheezing or crackles. ABDOMEN: Soft, nontender, nondistended, normoactive bowel sounds. No palpable organomegaly. MUSCULOSKELETAL: No joint swelling or deformity. EXTREMITIES: No cyanosis, clubbing, or pedal edema. NEUROLOGICAL: Gross neurological examination did not reveal any focal deficits. SKIN: No rashes. Assessment and Plan Plan: Chest pain, possibly of non-ST elevation microinfarction with a ruptured plaque in RCA -Type 2 diabetes mellitus -No evidence of congestive heart failure as per echocardiogram -Acute renal failure probably prerenal azotemia secondary to excessive diuretic therapy, improved now. -Rheumatoid arthritis -Hyponatremia secondary to diuretics, diuretics were discontinued , Patient apparently had 1 episode of blood in the stools yesterday which resolved at this time no further intervention is being planned. She continues to have JVD at home patient was asked to come back. Patient Condition at Discharge: Serious Plan - Discharge Summary Discharge Rx Participant: No New Discharge Prescriptions: New Colchicine [Colcrys] 0.6 mg PO DAILY each Clopidogrel [Plavix] 75 mg PO DAILY #30 tab Aspirin 81 mg PO DAILY #30 chew Continue sitaGLIPtin [Januvia] 100 mg PO DAILY Levocetirizine Dihydrochloride 5 mg PO HS Ergocalciferol (Vitamin D2) [Vitamin D2] 50,000 unit PO WE oxyCODONE ER [OxyCONTIN] 20 mg PO TID Nitroglycerin Sl Tabs [Nitrostat] 0.4 mg SUBLINGUAL Q5M PRN PRN Reason: Chest Pain Isosorbide Mononitrate ER [Imdur] 30 mg PO DAILY Gabapentin 600 mg PO TID Changed Rosuvastatin [Crestor] 20 mg PO HS #30 tab Discontinued Colchicine [Colcrys] 0.6 mg PO BID Enalapril [Vasotec] 2.5 mg PO DAILY Torsemide [Demadex] 20 mg PO BID Discharge Medication List Ergocalciferol (Vitamin D2) [Vitamin D2] 50,000 unit PO WE 12/21/17 [History] Levocetirizine Dihydrochloride 5 mg PO HS 12/21/17 [History] sitaGLIPtin [Januvia] 100 mg PO DAILY 12/21/17 [History] oxyCODONE ER [OxyCONTIN] 20 mg PO TID 09/19/18 [History] Gabapentin 600 mg PO TID 06/29/19 [History] Isosorbide Mononitrate ER [Imdur] 30 mg PO DAILY 06/29/19 [History] Nitroglycerin Sl Tabs [Nitrostat] 0.4 mg SUBLINGUAL Q5M PRN 06/29/19 [History] Aspirin 81 mg PO DAILY #30 chew 07/01/19 [Rx] Clopidogrel [Plavix] 75 mg PO DAILY #30 tab 07/01/19 [Rx] Colchicine [Colcrys] 0.6 mg PO DAILY each 07/01/19 [Rx] Rosuvastatin [Crestor] 20 mg PO HS #30 tab 07/01/19 [Rx] Follow up Appointment(s)/Referral(s): Darron Mcgee MD [Primary Care Provider] - 3 Days
[2019-07-01] MEDS: oxyCODONE ER 20 MG TAB.ER.12H PO SCH (08:45)
[2019-07-01] MEDS: COLCHICINE 0.6 MG EACH PO SCH (08:48)
[2019-07-01] MEDS: GABAPENTIN 300 MG CAP PO SCH (08:48)
[2019-07-01] MEDS ORDERED: ISOSORBIDE MONONITRATE ER 60 MG TAB.ER.24H PO SCH (09:00)
[2019-07-01] MEDS ORDERED: CLOPIDOGREL 75 MG TAB PO SCH (09:00)
[2019-07-01] MEDS ORDERED: ASPIRIN 81 MG PO SCH (09:00)
--- NOTE | 2019-07-01 09:07 | XR ---
EXAMINATION TYPE: XR chest 1V portable DATE OF EXAM: 07/01/2019 HISTORY: decreased oxygen saturation. REFERENCE: Previous study dated 06/29/2019. FINDINGS: There is apparent elevation right hemidiaphragm. Heart size upper limits of normal. There is worsening interstitial and alveolar airspace disease. I cannot exclude small effusions. IMPRESSION: WORSENING INTERSTITIAL CHANGE LIKELY REPRESENTING HEART FAILURE. ATYPICAL PNEUMONIA OR ALVEOLITIS CAN HAVE SIMILAR APPEARANCE
[2019-07-01] MEDS ORDERED: FUROSEMIDE 10 MG/ML 4 ML VIAL IV STA (10:11)
[2019-07-01 11:44] LABS: Glucose,Whole Blood 148 mg/dL (75-99)
--- NOTE | 2019-07-01 12:08 | PN ---
PROGRESS NOTE Mrs. Edwards is a 63-year-old female who presented with symptoms of chest discomfort and non ST-segment elevation myocardial infarction, underwent cardiac catheterization, was found to have moderate disease in the mid right coronary artery. She is doing well this morning. She has no further symptoms of chest pain. Her breathing has been stable. She denies any dizziness or palpitation. She denies any nausea. She is quite anxious to go home. She continues to be at this time on aspirin once a day, Plavix 75 mg daily, Lipitor 20 mg daily, colchicine, isosorbide mononitrate 60 mg daily. PHYSICAL EXAMINATION: Blood pressure 123/50 with a heart rate in the 50s. LUNGS: Clear. HEART: Regular rate and rhythm S1, S2. No S3. No rub. ABDOMEN: Soft, nontender. EXTREMITIES: No edema. LAB DATA: Lab data revealed BUN and creatinine 25 and 0.99, potassium 3.9, hemoglobin of 8.6. IMPRESSION: 1. Status post non ST-segment elevation myocardial infarction with evidence of ruptured plaque in the RCA with no significant obstructive underlying obstructive disease. 2. History of hypertension. 3. Hyperlipidemia. 4. Diabetes mellitus. 5. Anemia. RECOMMENDATION: From the cardiac standpoint, she should be able to be discharged home today if it is agreeable with primary care physician. We will see her again in the office in one week and depending on her progress, further recommendations will be made. MAVERICKL / ESTELLA: [id number] /
--- NOTE | 2019-07-01 14:17 | CONS ---
CONSULTATION DATE OF DICTATION: 07/01/2019 REASON FOR CONSULTATION: Anemia. HISTORY OF PRESENT ILLNESS: The patient is a 63-year-old pleasant white female came to the emergency room last night complaining of chest pressure, chest discomfort radiating to the neck on and off for the last few days duration. She was noted to have mild elevation of troponin and subsequently underwent cardiac catheterization by Dr. Villagomez last night, which showed evidence of atherosclerosis but no occlusive disease noted. No significant occlusion noted and Dr. Villagomez recommended aggressive medical management. The reason we are consulted is because of anemia. The patient states that she has been anemic most of her years. Her hemoglobin usually around between 8 and 9 g/dL. She currently denies any abdominal pain, reports no nausea or vomiting. No rectal bleeding or melena. She does have history of chronic kidney disease and follows with Dr. Huffman on an outpatient basis and receives IV infusion on and off for the ongoing anemia. She recalls having colonoscopy more than 20 years ago. No prior history of peptic ulcer disease or recent NSAID use. At the time of admission to the hospital, hemoglobin was 8.6 g/dL. PAST MEDICAL HISTORY: Past medical history consists of diabetes mellitus, hypertension, hypercholesteremia, chronic kidney disease, coronary artery disease. PAST SURGICAL HISTORY: Appendectomy, , cholecystectomy, cardiac cath, tubal ligation. SOCIAL HISTORY: Former smoker. No alcohol use. MEDICATIONS AT HOME: Include Vasotec, vitamin D2, Crestor, Demadex, OxyContin, gabapentin, Nitrostat and Imdur. ALLERGIES: SULFA. SOCIAL HISTORY: Chronic smoker. No alcohol use. FAMILY HISTORY: Mother had coronary artery disease and diabetes mellitus. Father had diabetes mellitus. REVIEW OF SYSTEMS: CARDIOPULMONARY: She denies any chest pain today. She did have some yesterday. No shortness of breath. GENITOURINARY: No dysuria or hematuria. MUSCULOSKELETAL: Complains of chronic back pain and occasional left knee pain. NEUROLOGY unremarkable. PSYCHIATRIC unremarkable. ENT/VISION: Unremarkable. CONSTITUTIONAL: No recent weight loss. No fever, chills, night sweats. HEMATOLOGY: Chronic anemia. GENITOURINARY unremarkable. ENDOCRINE unremarkable. PHYSICAL EXAMINATION: She appears comfortable. No apparent distress. Vital signs are stable. Blood pressure 118/60, pulse is 71, temperature 98.5. HEENT examination unremarkable. Conjunctivae pink. Sclerae anicteric. Oral cavity no lesions. NECK: No JVD or lymph node enlargement. CHEST: Clear to auscultation. HEART: Regular rate and rhythm. ABDOMEN: Soft. Bowel sounds are positive. No organomegaly. EXTREMITIES: No pedal edema. SKIN no rashes. NEUROLOGIC: Alert and oriented x3. No focal deficits. LABS: At the time of admission to the hospital: WBC 7.2, hemoglobin 8.6, platelets 296. Iron studies not done. BUN is 25, creatinine 1.29. ALT, AST 42 and 76 respectively. Troponin was 0.098. IMPRESSION: 1. Chest pain, elevated troponin, status post cardiac cath yesterday by Dr. Villagomez and was diagnosed with a coronary artery disease and medical management was recommended. No interventions performed. 2. Normocytic anemia with no evidence of active bleeding. The patient states that her baseline hemoglobin always runs between 8-9 g/dL. 3. History of hypertension. RECOMMENDATIONS: 1. Obtain iron studies. 2. Based on the results we will consider endoscopy workup on outpatient basis. 3. Patient wants to go home today and I suggested that she follow up in office in 2 weeks following discharge from the hospital and we will continue further workup of anemia on an outpatient basis. 4. 5. Thank you for this consultation. MMODL / IJN: [id number] /
== END 2019-07-01 13:27 | disposition home or self-care (01) | DRG 281 ==
LOC: EC 16:36 → 3SCARD 19:04
PROVIDERS: ADMIT Family Medicine; ATTEND Family Medicine
PROC: B2161ZZ Fluoroscopy of Right and Left Heart using Low Osmolar Contrast (ICD-10-PCS; principal; 2019-06-30 11:13)
DX: I21.4 Non-ST elevation (NSTEMI) myocardial infarction (principal); N17.9 Acute kidney failure, unspecified; E87.1 Hypo-osmolality and hyponatremia; F41.9 Anxiety disorder, unspecified; F03.90 Unspecified dementia, unspecified severity, without behavioral disturbance, psychotic disturbance, mood disturbance, and anxiety; I25.10 Atherosclerotic heart disease of native coronary artery without angina pectoris; M06.9 Rheumatoid arthritis, unspecified; D64.9 Anemia, unspecified; I45.10 Unspecified right bundle-branch block; N18.9 Chronic kidney disease, unspecified; I12.9 Hypertensive chronic kidney disease with stage 1 through stage 4 chronic kidney disease, or unspecified chronic kidney disease; E11.22 Type 2 diabetes mellitus with diabetic chronic kidney disease; T50.2X5A Adverse effect of carbonic-anhydrase inhibitors, benzothiadiazides and other diuretics, initial encounter; E11.51 Type 2 diabetes mellitus with diabetic peripheral angiopathy without gangrene; E78.00 Pure hypercholesterolemia, unspecified; E78.5 Hyperlipidemia, unspecified; M19.90 Unspecified osteoarthritis, unspecified site; M54.9 Dorsalgia, unspecified; F17.200 Nicotine dependence, unspecified, uncomplicated; Z79.02 Long term (current) use of antithrombotics/antiplatelets; Z79.84 Long term (current) use of oral hypoglycemic drugs; Z79.899 Other long term (current) drug therapy; Z82.49 Family history of ischemic heart disease and other diseases of the circulatory system; Z83.3 Family history of diabetes mellitus; Z88.2 Allergy status to sulfonamides; Z98.891 History of uterine scar from previous surgery; Z91.048 Other nonmedicinal substance allergy status; Z90.49 Acquired absence of other specified parts of digestive tract; Z90.89 Acquired absence of other organs; Z98.51 Tubal ligation status
CPT/HCPCS: 36415; 70450; 71045; 71046; 80048; 80053; 80061; 82550; 83690; 83735; 83880; 84484; 85025; 85027; 85049; 85610; 85730; 93005; 93306; 93458; 94760; 96361; 96374; 99291

== ENCOUNTER 2019-07-05 12:14 | Emergency (ER) | payer BC ==
[2019-07-05] MEDS ORDERED: SODIUM CHLORIDE 0.9% 500 ML 500 ML IV STA (13:00)
[2019-07-05 13:28] VITALS: RESP 18
[2019-07-05 13:34] LABS: Appearance,Urine Clear (Clear); Bacteria,Urine Rare /hpf; Bilirubin,Urine Negative (Negative); Blood,Urine Negative (Negative); Color,Urine Yellow; Glucose,Urine (UA) Negative (Negative); Hyaline Casts,Urine 4 /lpf (0-2); Ketones,Urine Negative (Negative); Leukocyte Esterase,Urine Moderate (Negative); Mucus,Urine Rare /hpf; Nitrite,Urine Negative (Negative); PH, Urine 5.5 (5.0-8.0); Protein,Urine Negative (Negative); RBC,Urine 1 /hpf (0-5); Specific Gravity,Urine 1.012 (1.001-1.035); Squamous Epithelial Cell,Urine 1 /hpf (0-4); Urobilinogen,Urine <2.0 mg/dL (<2.0); WBC,Urine 15 /hpf (0-5)
[2019-07-05 13:57] LABS: Albumin 3.3 g/dL (3.5-5.0); Calcium 8.6 mg/dL (8.4-10.2); Potassium 4.7 mmol/L (3.5-5.1); Total Bilirubin 0.6 mg/dL (0.2-1.3); Total Protein 5.9 g/dL (6.3-8.2)
[2019-07-05 14:06] LABS: Anisocytosis Slight; HCT 28.8 % (34.0-46.0); HGB 9.3 gm/dL (11.4-16.0); Hypochromasia Slight; MCH 27.1 pg (25.0-35.0); MCHC 32.3 g/dL (31.0-37.0); Mean Platelet Volume 6.1; Platelet Count 381 k/uL (150-450); Poikilocytosis Moderate; RBC 3.43 m/uL (3.80-5.40); RDW 18.3 % (11.5-15.5); WBC 11.3 k/uL (3.8-10.6)
[2019-07-05 14:27] LABS: Band Neutrophils % 4 %; Basophils # (M) 0.11 k/uL (0-0.2); Eosinophils # (M) 0.11 k/uL (0-0.7); Lymphocytes # (M) 2.15 k/uL (1.0-4.8); Metamyelocytes # (M) 0.68 k/uL (0); Metamyelocytes % 6 %; Myelocytes % 8 %; Neutrophils % (M) 56 %; Nucleated Red Blood Cells 0 /100 WBC (0-0); Total Cells Counted 200
--- NOTE | 2019-07-05 14:28 | ED ---
General Adult HPI - General Chief complaint: Abdominal Pain Stated complaint: abd pain, Diarrhea Time Seen by Provider: 07/05/19 12:25 Source: patient, RN notes reviewed Mode of arrival: ambulatory Limitations: no limitations - History of Present Illness Initial comments: 63-year-old female with a past medical history of diabetes myelitis, back pain presents to the emergency department for diarrhea 3 days. Patient states she has had frequent diarrhea. States she went to her primary care provider's office and had a large bowel movement and they were concerned about C. diff so they sent her here to the emergency department. Despite triage note saying otherwise, Patient denies any abdominal pain whatsoever. Denies any fevers or chills. Patient has no other complaints at this time including shortness of breath, chest pain, abdominal pain, nausea or vomiting, headache, or visual changes. - Related Data Home Medications Medication Instructions Recorded Confirmed RX: Ergocalciferol (Vitamin D2) 50,000 unit PO WE 12/21/17 06/29/19 [Vitamin D2] RX: Levocetirizine Dihydrochloride 5 mg PO HS 12/21/17 06/29/19 RX: sitaGLIPtin [Januvia] 100 mg PO DAILY 12/21/17 06/29/19 RX: oxyCODONE ER [OxyCONTIN] 20 mg PO TID 09/19/18 06/29/19 RX: Gabapentin 600 mg PO TID 06/29/19 06/29/19 RX: Isosorbide Mononitrate ER 30 mg PO DAILY 06/29/19 06/29/19 [Imdur] RX: Nitroglycerin Sl Tabs 0.4 mg SUBLINGUAL Q5M PRN 06/29/19 06/29/19 [Nitrostat] Previous Rx's Medication Instructions Recorded RX: Aspirin 81 mg PO DAILY #30 chew 07/01/19 RX: Clopidogrel [Plavix] 75 mg PO DAILY #30 tab 07/01/19 RX: Colchicine [Colcrys] 0.6 mg PO DAILY each 07/01/19 RX: Rosuvastatin [Crestor] 20 mg PO HS #30 tab 07/01/19 Torsemide [Demadex] 10 mg PO BID #60 tablet 07/01/19 Allergies Allergy/AdvReac Type Severity Reaction Status Date / Time adhesive Allergy Rash/Hives Verified 07/05/19 12:19 Sulfa (Sulfonamide Allergy Anaphylaxis Verified 07/05/19 12:19 Antibiotics) Review of Systems ROS Statement: Those systems with pertinent positive or pertinent negative responses have been documented in the HPI. ROS Other: All systems not noted in ROS Statement are negative. Past Medical History Past Medical History: Diabetes Mellitus, Osteoarthritis (OA), Renal Disease Additional Past Medical History / Comment(s): states back pain, current "creacked bone in left ankle wrapped with [place] wrap CURRENTLY USING CRUTCHES broke left ankle aug 26 2018. History of Any Multi-Drug Resistant Organisms: None Reported Past Surgical History: Appendectomy, Section, Cholecystectomy, Heart Catheterization, Tonsillectomy, Tubal Ligation Additional Past Surgical History / Comment(s): carpal tunnel both wrists,shoulder surgery, ankle reconstruction. Past Anesthesia/Blood Transfusion Reactions: No Reported Reaction Past Psychological History: No Psychological Hx Reported Smoking Status: Former smoker Past Alcohol Use History: Occasional Past Drug Use History: None Reported - Past Family History Mother Family Medical History: Cancer, Coronary Artery Disease (CAD), Diabetes Mellitus Father Family Medical History: Coronary Artery Disease (CAD), Diabetes Mellitus General Exam Limitations: no limitations General appearance: alert, in no apparent distress Head exam: Present: atraumatic, normocephalic, normal inspection Eye exam: Present: normal appearance, PERRL, EOMI. Absent: scleral icterus, conjunctival injection, periorbital swelling ENT exam: Present: normal exam, mucous membranes moist Neck exam: Present: normal inspection. Absent: tenderness, meningismus, lymphadenopathy Respiratory exam: Present: normal lung sounds bilaterally. Absent: respiratory distress, wheezes, rales, rhonchi, stridor Cardiovascular Exam: Present: regular rate, normal rhythm, normal heart sounds. Absent: systolic murmur, diastolic murmur, rubs, gallop, clicks GI/Abdominal exam: Present: soft, normal bowel sounds. Absent: distended, tenderness (No tenderness in the abdomen), guarding, rebound, rigid Neurological exam: Present: alert Course Vital Signs 07/05/19 07/05/19 12:15 13:25 Temperature 98.0 F Pulse Rate 91 86 Respiratory 20 18 Rate Blood Pressure 127/70 106/55 O2 Sat by Pulse 86 L 88 L Oximetry Medical Decision Making - Medical Decision Making 63-year-old female presents to the emergency department for a chief complaint of diarrhea. Patient has a history of renal disease and [id number] diabetes. Patient denies any chest pain shortness of breath or abdominal pain. Recent reports are reviewed and patient was hospitalized for an STEMI and ruptured plaque in her RCA. However she is denying any ACS symptoms whatsoever. Denies nausea vomiting. Does admit to diarrhea for 3 days which is why she was sent in by primary care. Vitals do show patient is 86-90% on room air. This is normal for patient and was satting low on previous admission as well. White count of 11.3 is likely reactive. Hemoglobin 9.3 which is patient's baseline. CMP is unremarkable. Creatinine is 1.19 and this shows some evidence of dehydration. This is also patient's baseline. She was given gentle rehydration. Urine will be cultured as patient does not have any dysuria. Did attempt several times to obtain stool sample and was unsuccessful as patient could not have a bowel movement here. I discussed the patient that we recommend patient stay for admission as patient's primary care did seem to want her admitted. Patient is aware of this but adamantly refuses admission. She is aware of the risks associated with this. She states she will follow up with Dr Willson as soon as possible. Patient will be given outpatient C. diff And prescription for stool culture. She will return here if she has any worsening symptoms.I discussed this case with attending Dr. Mcclellan who agrees with this assessment and treatment plan. - Lab Data Result diagrams: 07/05/19 13:18 07/05/19 13:18 Lab Results 07/05/19 07/05/19 07/05/19 Range/Units 13:18 13:18 13:20 WBC 11.3 H (3.8-10.6) k/uL RBC 3.43 L (3.80-5.40) m/uL Hgb 9.3 L (11.4-16.0) gm/dL Hct 28.8 L (34.0-46.0) % MCV 84.0 (80.0-100.0) fL MCH 27.1 (25.0-35.0) pg MCHC 32.3 (31.0-37.0) g/dL RDW 18.3 H (11.5-15.5) % Plt Count 381 (150-450) k/uL Neutrophils % (Manual) 56 % Band Neutrophils % 4 % Lymphocytes % (Manual) 19 % Monocytes % (Manual) 8 % Eosinophils % (Manual) 1 % Basophils % (Manual) 1 % Metamyelocytes % 6 % Myelocytes % 8 % Neutrophils # (Manual) 6.70 (1.3-7.7) k/uL Lymphocytes # (Manual) 2.15 (1.0-4.8) k/uL Monocytes # (Manual) 0.90 (0-1.0) k/uL Eosinophils # (Manual) 0.11 (0-0.7) k/uL Basophils # (Manual) 0.11 (0-0.2) k/uL Metamyelocytes # (Man) 0.68 H (0) k/uL Myelocytes # (Manual) 0.90 H (0) k/uL Nucleated RBCs 0 (0-0) /100 WBC Manual Slide Review Performed Polychromasia Present Hypochromasia Slight Poikilocytosis Moderate Anisocytosis Slight Sodium 137 (137-145) mmol/L Potassium 4.7 (3.5-5.1) mmol/L Chloride 99 (98-107) mmol/L Carbon Dioxide 30 (22-30) mmol/L Anion Gap 8 mmol/L BUN 27 H (7-17) mg/dL Creatinine 1.19 H (0.52-1.04) mg/dL Est GFR (CKD-EPI)AfAm 55 (>60 ml/min/1.73 sqM) Est GFR (CKD-EPI)NonAf 48 (>60 ml/min/1.73 sqM) Glucose 113 H (74-99) mg/dL Calcium 8.6 (8.4-10.2) mg/dL Total Bilirubin 0.6 (0.2-1.3) mg/dL AST 34 (14-36) U/L ALT 44 (9-52) U/L Alkaline Phosphatase 47 (38-126) U/L Total Protein 5.9 L (6.3-8.2) g/dL Albumin 3.3 L (3.5-5.0) g/dL Amylase 43 (30-110) U/L Lipase 36 (23-300) U/L Urine Color Yellow Urine Appearance Clear (Clear) Urine pH 5.5 (5.0-8.0) Ur Specific [place] 1.012 (1.001-1.035) Urine Protein Negative (Negative) Urine Glucose (UA) Negative (Negative) Urine Ketones Negative (Negative) Urine Blood Negative (Negative) Urine Nitrite Negative (Negative) Urine Bilirubin Negative (Negative) Urine Urobilinogen <2.0 (<2.0) mg/dL Ur Leukocyte Esterase Moderate H (Negative) Urine RBC 1 (0-5) /hpf Urine WBC 15 H (0-5) /hpf Ur Squamous Epith Cells 1 (0-4) /hpf Urine Bacteria Rare H (None) /hpf Hyaline Casts 4 H (0-2) /lpf Urine Mucus Rare H (None) /hpf Disposition Clinical Impression: Diarrhea Disposition: HOME SELF-CARE Condition: Good Instructions (If sedation given, give patient instructions): Acute Diarrhea (ED) Additional Instructions: These drink plenty of fluids. Please follow-up with primary care in 1-2 days. Please bring stool sample back to the laboratory. If you have worsening symptoms return immediately to the emergency department. Is patient prescribed a controlled substance at d/c from ED?: No Referrals: Darron Mcgee MD [Primary Care Provider] - 1-2 days Time of Disposition: 15:08
[2019-07-05 14:29] LABS: Polychromasia Present
[2019-07-05 15:34] VITALS: BP 123/74; PULSE 75; TEMP 98.7
== END 2019-07-05 15:34 | disposition home or self-care (01) ==
LOC: EC 12:14
DX: R19.7 Diarrhea, unspecified (principal); E11.9 Type 2 diabetes mellitus without complications; M54.9 Dorsalgia, unspecified; E86.0 Dehydration; M19.90 Unspecified osteoarthritis, unspecified site; Z79.84 Long term (current) use of oral hypoglycemic drugs; Z79.899 Other long term (current) drug therapy; Z87.891 Personal history of nicotine dependence; Z88.2 Allergy status to sulfonamides; Z91.048 Other nonmedicinal substance allergy status; Z95.5 Presence of coronary angioplasty implant and graft; Z90.49 Acquired absence of other specified parts of digestive tract; Z90.89 Acquired absence of other organs; Z86.79 Personal history of other diseases of the circulatory system
CPT/HCPCS: 36415; 80053; 81001; 82150; 83690; 85025; 96360; 96361; 99284

== ENCOUNTER → 2019-08-27 | Outpatient (CLI) | payer BC ==
[2019-08-27 11:26] LABS: Anisocytosis Slight; HCT 28.1 % (34.0-46.0); HGB 9.2 gm/dL (11.4-16.0); Hypochromasia Slight; MCHC 32.9 g/dL (31.0-37.0); Mean Platelet Volume 6.7; Platelet Count 308 k/uL (150-450); Poikilocytosis Slight; RDW 19.1 % (11.5-15.5); WBC 9.4 k/uL (3.8-10.6)
[2019-08-27 12:30] LABS: Band Neutrophils % 2 %; Eosinophils # (M) 0.19 k/uL (0-0.7); Lymphocytes # (M) 1.79 k/uL (1.0-4.8); Metamyelocytes # (M) 0.28 k/uL (0); Metamyelocytes % 3 %; Monocytes # (M) 1.03 k/uL (0-1.0); Myelocytes # (M) 0.85 k/uL (0); Myelocytes % 9 %; Neutrophils % (M) 56 %; Nucleated Red Blood Cells 0 /100 WBC (0-0); Total Cells Counted 200
[2019-08-27 12:32] LABS: Polychromasia Present
[2019-08-27 14:43] LABS: Appearance,Urine Clear (Clear); Bilirubin,Urine Negative (Negative); Blood,Urine Negative (Negative); Color,Urine Light Yellow; Glucose,Urine (UA) 4+ (Negative); Ketones,Urine Negative (Negative); Leukocyte Esterase,Urine Negative (Negative); Nitrite,Urine Negative (Negative); PH, Urine 5.5 (5.0-8.0); Protein,Urine Negative (Negative); Specific Gravity,Urine 1.011 (1.001-1.035); Urobilinogen,Urine <2.0 mg/dL (<2.0)
[2019-08-27 15:56] LABS: % Iron Saturation 34.33 (12.00-45.00); Albumin 3.8 g/dL (3.80-4.90); Anion Gap 9.2 mmol/L (4.00-12.00); BUN/Creat Ratio 26.36 Ratio (12.00-20.00); Calcium 8.6 mg/dL (8.7-10.3); Carbon Dioxide 27.8 mmol/L (21.6-31.8); Magnesium 1.9 mg/dL (1.5-2.4); Non-African American GFR(CKD) 52.6 (60.0-200.0); Phosphorus 4.3 mg/dL (2.4-5.1); Potassium 4.3 mmol/L (3.5-5.5); Uric Acid 3.2 mg/dL (2.9-7.7)
[2019-08-27 16:10] LABS: Ferritin 712.6 ng/mL (10.0-291.0)
[2019-08-27 18:03] LABS: Creatinine,Urine Random 27.8 mg/dL; Total Protein,Urine Random 7.6 mg/dL (0.0-13.5)
== END | disposition home or self-care (01) ==
LOC: LABWHC1 09:37
PROVIDERS: ATTEND Internal Medicine Nephrology
DX: N18.3 Chronic kidney disease, stage 3 (moderate) (principal); D63.1 Anemia in chronic kidney disease; M10.9 Gout, unspecified; N39.0 Urinary tract infection, site not specified; E55.9 Vitamin D deficiency, unspecified; N25.81 Secondary hyperparathyroidism of renal origin; R80.9 Proteinuria, unspecified
CPT/HCPCS: 36415; 80048; 81003; 82040; 82306; 82570; 82728; 83540; 83550; 83735; 83970; 84100; 84156; 84550; 85025

== ENCOUNTER → 2019-08-31 | Outpatient (CLI) | payer BC ==
--- NOTE | 2019-08-31 08:45 | US ---
EXAMINATION TYPE: US thyroid st tissue head/neck DATE OF EXAM: 08/31/2019 COMPARISON: NONE CLINICAL HISTORY: E04.9 GOITER. GLAND SIZE: Right Lobe: 4.8 x 1.9 x 1.5 cm Overall Parenchyma: heterogenous Left Lobe: 4.7 x 1.5 x 1.3 cm Overall Parenchyma: heterogeneous Isthmus Thickness: 0.3 cm NODULES RIGHT: # of nodules measured on right: 1 1. 1.0 X 0.9 x 1.2 cm hypoechoic solid nodule at the mid pole with well-defined margins. This nodu le is wider than tall and shows no intranodular vascularity. LEFT: # of nodules measured on left: 0 ISTHMUS: # of nodules measured in the isthmus: 0 Bilateral neck scanned, no evidence of lymphadenopathy. Heterogeneous normal-sized thyroid with 1.2 cm posterior hypoechoic midpole right-sided nodule. Nodu le wider greater than tall with ill-defined margins without echogenic foci. IMPRESSION: Normal-sized thyroid with 1.2 cm right thyroid nodule, TR 4 lesion moderately suspicious, ultrasound surveillance advised.
== END | disposition home or self-care (01) ==
LOC: RADUSWWP 08:06
PROVIDERS: ATTEND Family Medicine
DX: E04.9 Nontoxic goiter, unspecified (principal)
CPT/HCPCS: 76536

== ENCOUNTER 2019-09-27 14:46 | Emergency (ER) | payer BC, MEDICARE ==
[2019-09-27 15:21] LABS: Glucose,Whole Blood 130 mg/dL (75-99)
[2019-09-27 15:46] LABS: Appearance,Urine Clear (Clear); Bilirubin,Urine Negative (Negative); Blood,Urine Negative (Negative); Color,Urine Yellow; Glucose,Urine (UA) Negative (Negative); Ketones,Urine Negative (Negative); Leukocyte Esterase,Urine Small (Negative); Nitrite,Urine Negative (Negative); PH, Urine 6.5 (5.0-8.0); Protein,Urine Trace (Negative); RBC,Urine 1 /hpf (0-5); Specific Gravity,Urine 1.015 (1.001-1.035); Squamous Epithelial Cell,Urine 1 /hpf (0-4); WBC,Urine 2 /hpf (0-5)
[2019-09-27] MEDS ORDERED: MORPHINE SULFATE 4 MG/ML SYRINGE IM STA (17:16)
[2019-09-27] MEDS ORDERED: ONDANSETRON 4 MG ODT STARTER PACK 2 TAB BTL PO STA (17:26)
--- NOTE | 2019-09-27 17:27 | ED ---
General Adult HPI - General Chief complaint: Recheck/Abnormal Lab/Rx Stated complaint: Diabetic, unable to eat, pain all over Time Seen by Provider: 09/27/19 16:37 Source: patient Mode of arrival: wheelchair Limitations: no limitations - History of Present Illness Initial comments: Patient is 63-year-old female presenting to the emergency room with a chief complaint of decreased appetite, generalized pain, nausea, sweating. Patient reports she has been taking oxycodone and tramadol for over 30 years. Patient reports 7 days ago she stopped taking the medication because she had a "falling out" with her pain management doctor. She is currently sick and new pain management doctor. Patient also reports some diffuse abdominal pain. Denies any fevers. Denies taking other medications. - Related Data Home Medications Medication Instructions Recorded Confirmed Ergocalciferol (Vitamin D2) 50,000 unit PO WE 12/21/17 06/29/19 [Vitamin D2] Levocetirizine Dihydrochloride 5 mg PO HS 12/21/17 06/29/19 sitaGLIPtin [Januvia] 100 mg PO DAILY 12/21/17 06/29/19 oxyCODONE ER [OxyCONTIN] 20 mg PO TID 09/19/18 06/29/19 Gabapentin 600 mg PO TID 06/29/19 06/29/19 Isosorbide Mononitrate ER [Imdur] 30 mg PO DAILY 06/29/19 06/29/19 Nitroglycerin Sl Tabs [Nitrostat] 0.4 mg SUBLINGUAL Q5M PRN 06/29/19 06/29/19 Previous Rx's Medication Instructions Recorded Aspirin 81 mg PO DAILY #30 chew 07/01/19 Clopidogrel [Plavix] 75 mg PO DAILY #30 tab 07/01/19 Colchicine [Colcrys] 0.6 mg PO DAILY each 07/01/19 Rosuvastatin [Crestor] 20 mg PO HS #30 tab 07/01/19 Torsemide [Demadex] 10 mg PO BID #60 tablet 07/01/19 Allergies Allergy/AdvReac Type Severity Reaction Status Date / Time adhesive Allergy Rash/Hives Verified 09/27/19 15:21 Sulfa (Sulfonamide Allergy Anaphylaxis Verified 09/27/19 15:21 Antibiotics) Review of Systems ROS Statement: Those systems with pertinent positive or pertinent negative responses have been documented in the HPI. ROS Other: All systems not noted in ROS Statement are negative. Past Medical History Past Medical History: Coronary Artery Disease (CAD), Diabetes Mellitus, Hyperlipidemia, Osteoarthritis (OA), Renal Disease Additional Past Medical History / Comment(s): states back pain, current "creacked bone in left ankle wrapped with [place] wrap CURRENTLY USING CRUTCHES broke left ankle aug 26 2018. History of Any Multi-Drug Resistant Organisms: None Reported Past Surgical History: Appendectomy, Section, Cholecystectomy, Heart Catheterization, Tonsillectomy, Tubal Ligation Additional Past Surgical History / Comment(s): carpal tunnel both wrists,shoulder surgery, ankle reconstruction. Past Anesthesia/Blood Transfusion Reactions: No Reported Reaction Past Psychological History: No Psychological Hx Reported Smoking Status: Former smoker Past Alcohol Use History: Occasional Past Drug Use History: None Reported - Past Family History Mother Family Medical History: Cancer, Coronary Artery Disease (CAD), Diabetes Mellitus Father Family Medical History: Coronary Artery Disease (CAD), Diabetes Mellitus General Exam Limitations: no limitations General appearance: alert, in no apparent distress Head exam: Present: atraumatic, normocephalic, normal inspection Eye exam: Present: normal appearance Pupils: Present: normal accommodation ENT exam: Present: normal exam, normal oropharynx, mucous membranes moist, TM's normal bilaterally, normal external ear exam Neck exam: Present: normal inspection, full ROM Respiratory exam: Present: normal lung sounds bilaterally Cardiovascular Exam: Present: regular rate, normal rhythm, normal heart sounds GI/Abdominal exam: Present: soft, tenderness (Diffuse). Absent: distended Extremities exam: Present: normal inspection, full ROM Back exam: Present: normal inspection, full ROM Neurological exam: Present: alert, oriented X3 Psychiatric exam: Present: normal affect, normal mood Skin exam: Present: warm, dry, intact, normal color Course Vital Signs 09/27/19 15:17 Temperature 98.0 F Pulse Rate 88 Respiratory 20 Rate Blood Pressure 148/77 O2 Sat by Pulse 95 Oximetry Medical Decision Making - Medical Decision Making Patient is 63-year-old female presenting to emergency Department with a chief complaint of generalized pain, nausea, vomiting, abdominal pain and cold sweats. Physical examination is unremarkable. Patient recently stopped taking her opioid medications. Patient is currently looking for a new pain management physician. I suspect the patient is undergoing opiate withdrawal. She is present with all the classic signs and symptoms. I gave the patient is single dose of IM morphine. Patient will be discharged and advised to follow-up with primary care. I will also give the patient started pack of Zofran. Strict return parameters were thoroughly discussed with patient and understanding and agreeable. Case discussed with physician. - Lab Data Lab Results 09/27/19 09/27/19 Range/Units 15:19 15:30 POC Glucose (mg/dL) 130 H (75-99) mg/dL POC Glu Paint Prepper ID [id number] Chávez Urine Color Yellow Urine Appearance Clear (Clear) Urine pH 6.5 (5.0-8.0) Ur Specific [place] 1.015 (1.001-1.035) Urine Protein Trace H (Negative) Urine Glucose (UA) Negative (Negative) Urine Ketones Negative (Negative) Urine Blood Negative (Negative) Urine Nitrite Negative (Negative) Urine Bilirubin Negative (Negative) Urine Urobilinogen 2.0 (<2.0) mg/dL Ur Leukocyte Esterase Small H (Negative) Urine RBC 1 (0-5) /hpf Urine WBC 2 (0-5) /hpf Ur Squamous Epith Cells 1 (0-4) /hpf Disposition Clinical Impression: Opioid withdrawal Disposition: HOME SELF-CARE Condition: Stable Instructions (If sedation given, give patient instructions): Narcotic Withdrawal (ED) Additional Instructions: Please follow up with a pain management doctor. Please return to emergency department if symptoms worsen. Is patient prescribed a controlled substance at d/c from ED?: No Referrals: Darron Mcgee MD [Primary Care Provider] - 1-2 days Time of Disposition: 17:26
[2019-09-27 17:37] VITALS: BP 135/72; PULSE 82; RESP 18; TEMP 98
== END 2019-09-27 17:38 | disposition home or self-care (01) ==
LOC: EC 14:46
DX: F11.23 Opioid dependence with withdrawal (principal); I25.10 Atherosclerotic heart disease of native coronary artery without angina pectoris; M24.872 Other specific joint derangements of left ankle, not elsewhere classified; E11.9 Type 2 diabetes mellitus without complications; M19.90 Unspecified osteoarthritis, unspecified site; Z87.891 Personal history of nicotine dependence; Z88.2 Allergy status to sulfonamides; Z91.048 Other nonmedicinal substance allergy status; Z79.84 Long term (current) use of oral hypoglycemic drugs; Z79.899 Other long term (current) drug therapy; Z96.669 Presence of unspecified artificial ankle joint; Z90.49 Acquired absence of other specified parts of digestive tract
CPT/HCPCS: 36415; 81001; 99283; 96372; J2270; S0119

== ENCOUNTER → 2019-11-02 | Outpatient (CLI) | payer BC ==
[2019-11-02 10:18] VITALS: BP 143/70; PULSE 75; RESP 18; TEMP 98.1
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
== END | disposition home or self-care (01) ==
LOC: WWCWWP 09:31
PROVIDERS: ATTEND Surgery
DX: Z53.9 Procedure and treatment not carried out, unspecified reason (principal)

== ENCOUNTER 2019-11-23 03:10 | Inpatient (IN) | payer BC, MEDICARE ==
[2019-11-23] MEDS ORDERED: MORPHINE SULFATE 4 MG/ML SYRINGE IVP STA (03:52)
--- NOTE | 2019-11-23 04:42 | ED ---
General Adult HPI - General Chief complaint: Abdominal Pain Stated complaint: Diarrhea Time Seen by Provider: 11/23/19 03:25 Source: patient, EMS Mode of arrival: EMS - History of Present Illness Initial comments: The patient is a 64-year-old female with past history of coronary artery disease, diabetes and hypertension who presents to the emergency room with complaint of lower abdominal pain and diarrhea. She states diarrhea has been present for the past several months. States as if it is getting to the point where she feels dehydrated. She has been extremely weak with worsening ambulation. She also reports a previous history of left ankle fixation through [facility]. States that at the beginning of November she noted that a nail was sticking through her ankle. She followed up with her surgeon at [facility] who removed the screws. States that after the surgery her incision site opened up. She was on Keflex for the infection and finished course. States that she was nonambulatory on the extremity because of the infection. She has a tendency to develop lower extremity wounds and noted that she was getting a new pressure ulcer on her left heel. Pain became so excruciating in the left heel that she called EMS. She denies any fevers or chills. No nausea or vomiting. Denies a history of C. diff. No melenic stools or hematochezia. Admits to burning with urination. Denies hematuria. Patient also reports to chronic back and hip pain. None of which has worsened from baseline. The patient has been seen multiple times by the wound care center. There are no other alleviating, precipitating or modifying factors - Related Data Home Medications Medication Instructions Recorded Confirmed Levocetirizine Dihydrochloride 5 mg PO HS 12/21/17 11/23/19 sitaGLIPtin [Januvia] 100 mg PO QAM 12/21/17 11/23/19 Gabapentin 600 mg PO TID 06/29/19 11/23/19 Isosorbide Mononitrate ER [Imdur] 30 mg PO QAM 06/29/19 11/23/19 Nitroglycerin Sl Tabs [Nitrostat] 0.4 mg SUBLINGUAL Q5M PRN 06/29/19 11/23/19 Aspirin 81 mg PO QAM 11/02/19 11/23/19 Colchicine [Colcrys] 0.6 mg PO BID 11/02/19 11/23/19 Enalapril Maleate [Vasotec] 2.5 mg PO QAM 11/02/19 11/23/19 Febuxostat [Uloric] 80 mg PO QAM 11/02/19 11/23/19 Ibuprofen [Motrin] 600 mg PO Q6HR PRN 11/23/19 11/23/19 Previous Rx's Medication Instructions Recorded Rosuvastatin [Crestor] 20 mg PO HS #30 tab 07/01/19 Torsemide [Demadex] 10 mg PO BID #60 tablet 07/01/19 Cephalexin [Keflex] 500 mg PO Q8HR #30 cap 11/28/19 Ciprofloxacin HCl [Cipro] 500 mg PO Q12H #20 tab 11/28/19 Allergies Allergy/AdvReac Type Severity Reaction Status Date / Time adhesive Allergy Rash/Hives Verified 11/23/19 07:17 Sulfa (Sulfonamide Allergy Anaphylaxis Verified 11/23/19 07:17 Antibiotics) Review of Systems ROS Statement: Those systems with pertinent positive or pertinent negative responses have been documented in the HPI. ROS Other: All systems not noted in ROS Statement are negative. Past Medical History Past Medical History: Coronary Artery Disease (CAD), Diabetes Mellitus, Hyperlipidemia, Osteoarthritis (OA), Renal Disease Additional Past Medical History / Comment(s): states back pain, current "creacked bone in left ankle wrapped with [place] wrap CURRENTLY USING CRUTCHES broke left ankle aug 26 2018. History of Any Multi-Drug Resistant Organisms: None Reported Past Surgical History: Appendectomy, Section, Cholecystectomy, Heart Catheterization, Tonsillectomy, Tubal Ligation Additional Past Surgical History / Comment(s): carpal tunnel both wrists,should er surgery, ankle reconstruction. Past Anesthesia/Blood Transfusion Reactions: No Reported Reaction Past Psychological History: No Psychological Hx Reported Smoking Status: Former smoker Past Alcohol Use History: Occasional Past Drug Use History: None Reported - Past Family History Mother Family Medical History: Cancer, Coronary Artery Disease (CAD), Diabetes Mellitus Additional Family Medical History / Comment(s): ovarian cancer Father Family Medical History: Coronary Artery Disease (CAD), Diabetes Mellitus Brother(s) Additional Family Medical History / Comment(s): Brother #1 (Adam) colon cancer, liver cancer, lung cancer, diabetic, brain mets. Brother #2 (Elie) colon cancer, lung cancer with brain mets Sister(s) Family Medical History: Fibromyalgia Additional Family Medical History / Comment(s): Sister #1 (Desi) ovarian cancer and breast cancer with brain mets. Sister #2 (Celsa) stomach cancer, ovarian cancer General Exam General appearance: alert, in no apparent distress Head exam: Present: atraumatic, normocephalic, normal inspection Eye exam: Present: normal appearance, PERRL, EOMI. Absent: scleral icterus, conjunctival injection, periorbital swelling ENT exam: Present: normal exam, mucous membranes moist Neck exam: Present: normal inspection. Absent: tenderness, meningismus, lymphadenopathy Respiratory exam: Present: normal lung sounds bilaterally. Absent: respiratory distress, wheezes, rales, rhonchi, stridor Cardiovascular Exam: Present: regular rate, normal rhythm, normal heart sounds. Absent: systolic murmur, diastolic murmur, rubs, gallop, clicks GI/Abdominal exam: Present: other (obese. Large pannus with inguinal redness consistent with yeast. ) Rectal exam: Present: normal rectal tone Extremities exam: Present: other (large heel ulcer left foot - approximately 6 x 4 cm. Large area of surrouding cellulitis. Small open wound left lateral ankle - 1.5 x 1.0 cm. No pustular drainage. Ankle and foot have 4+ pitting edema. Patient has limited ROM of the ankle because of previous fixation. 4/5 muscle strength in the hip flexors, knee extensors and great toe dorsiflexors. Patient reports weakness is chronic) Skin exam: Present: warm, dry, other (multiple areas of bruising/abrasions over both arms, legs and abdomen. In multiple stages of healing. ) Course Vital Signs 11/23/19 11/23/19 11/23/19 03:22 05:40 07:08 Temperature 98.1 F 98 F Pulse Rate 83 74 84 Pulse Rate [ Pulse Oximetery ] Respiratory 18 18 18 Rate Blood Pressure 103/88 116/51 101/71 Blood Pressure [Right Arm] O2 Sat by Pulse 96 96 96 Oximetry 11/23/19 07:53 Temperature 97.8 F Pulse Rate Pulse Rate [ 74 Pulse Oximetery ] Respiratory 18 Rate Blood Pressure Blood Pressure 122/55 [Right Arm] O2 Sat by Pulse 97 Oximetry EKG Findings - EKG Comments: EKG Findings:: EKG demonstrates normal sinus rhythm with a ventricular rate of 83. PA interval 208. QRS 144. QTC of 467. There is a right bundle branch block present. No acute ST segment elevations or depressions concerning for ischemic changes. Medical Decision Making - Medical Decision Making On arrival the patient is placed into room 3. A thorough history and physical exam was performed. I did request a stool sample from patient however she is unable to provide one. PIV is established. Laboratory studies were conducted. The patient was requesting something for pain in her left heel. She reports to me that she was previously addicted to narcotic pain medications however wean herself off of them. The patient is requesting narcotics at this time. He did inform her of the risk of addiction however the patient states that she is aware of this but is requiring at this time because of the significant pain. I did provide her with one dose of morphine. Laboratories asymmetry with blood cell count 14.6. Reactive protein elevated at 12.5. Urinalysis demonstrates moderate leukocyte esterase with 18 white blood cells and rare bacteria. X-rays are performed the patient's bilateral feet as well as her left ankle. No acute signs of osteomyelitis. EKG was performed which demonstrates no changes from previous baseline. I discussed diagnosis, differential and treatment options. Blood cultures were obtained and the patient was placed on Unasyn and Vanco. I recommended hospital admission for evaluation with wound care. The patient understood this. I discussed the case with Dr. Nichols who accepted admission for the patient. She is awaiting a bed on the floor - Lab Data Result diagrams: 11/28/19 08:23 11/28/19 08:23 Lab Results 11/23/19 11/23/19 11/23/19 Range/Units 05:00 05:00 05:00 WBC 14.6 H (3.8-10.6) k/uL RBC 4.06 (3.80-5.40) m/uL Hgb 10.7 L (11.4-16.0) gm/dL Hct 33.2 L (34.0-46.0) % MCV 81.7 D (80.0-100.0) fL MCH 26.3 (25.0-35.0) pg MCHC 32.2 (31.0-37.0) g/dL RDW 16.7 H (11.5-15.5) % Plt Count 302 (150-450) k/uL Neutrophils % 79 % Lymphocytes % 12 % Monocytes % 7 % Eosinophils % 1 % Basophils % 0 % Neutrophils # 11.5 H (1.3-7.7) k/uL Lymphocytes # 1.7 (1.0-4.8) k/uL Monocytes # 1.0 (0-1.0) k/uL Eosinophils # 0.2 (0-0.7) k/uL Basophils # 0.0 (0-0.2) k/uL Hypochromasia Slight Anisocytosis Slight ESR Cancelled PT (9.0-12.0) sec INR (<1.2) APTT (22.0-30.0) sec Sodium 134 L (137-145) mmol/L Potassium 4.6 (3.5-5.1) mmol/L Chloride 109 H (98-107) mmol/L Carbon Dioxide 14 L (22-30) mmol/L Anion Gap 11 mmol/L BUN 35 H (7-17) mg/dL Creatinine 1.21 H (0.52-1.04) mg/dL Est GFR (CKD-EPI)AfAm 54 (>60 ml/min/1.73 sqM) Est GFR (CKD-EPI)NonAf 47 (>60 ml/min/1.73 sqM) Glucose 142 H (74-99) mg/dL Plasma Lactic Acid Claudio 1.1 (0.7-2.0) mmol/L Calcium 8.6 (8.4-10.2) mg/dL Total Bilirubin 0.4 (0.2-1.3) mg/dL AST 31 (14-36) U/L ALT 40 H (4-34) U/L Alkaline Phosphatase 40 (38-126) U/L Creatine Kinase 189 H (30-135) U/L C-Reactive Protein 12.5 H (<10.0) mg/L Total Protein 5.9 L (6.3-8.2) g/dL Albumin 3.3 L (3.5-5.0) g/dL 11/23/19 Range/Units 05:00 WBC (3.8-10.6) k/uL RBC (3.80-5.40) m/uL Hgb (11.4-16.0) gm/dL Hct (34.0-46.0) % MCV (80.0-100.0) fL MCH (25.0-35.0) pg MCHC (31.0-37.0) g/dL RDW (11.5-15.5) % Plt Count (150-450) k/uL Neutrophils % % Lymphocytes % % Monocytes % % Eosinophils % % Basophils % % Neutrophils # (1.3-7.7) k/uL Lymphocytes # (1.0-4.8) k/uL Monocytes # (0-1.0) k/uL Eosinophils # (0-0.7) k/uL Basophils # (0-0.2) k/uL Hypochromasia Anisocytosis ESR PT 9.5 (9.0-12.0) sec INR 0.9 (<1.2) APTT 19.9 L (22.0-30.0) sec Sodium (137-145) mmol/L Potassium (3.5-5.1) mmol/L Chloride (98-107) mmol/L Carbon Dioxide (22-30) mmol/L Anion Gap mmol/L BUN (7-17) mg/dL Creatinine (0.52-1.04) mg/dL Est GFR (CKD-EPI)AfAm (>60 ml/min/1.73 sqM) Est GFR (CKD-EPI)NonAf (>60 ml/min/1.73 sqM) Glucose (74-99) mg/dL Plasma Lactic Acid Claudio (0.7-2.0) mmol/L Calcium (8.4-10.2) mg/dL Total Bilirubin (0.2-1.3) mg/dL AST (14-36) U/L ALT (4-34) U/L Alkaline Phosphatase (38-126) U/L Creatine Kinase (30-135) U/L C-Reactive Protein (<10.0) mg/L Total Protein (6.3-8.2) g/dL Albumin (3.5-5.0) g/dL Disposition Clinical Impression: Diarrhea, Wound of left foot Disposition: ADMITTED IP TO THIS [facility] Condition: Stable Is patient prescribed a controlled substance at d/c from ED?: No Decision to Admit Reason: Admit from EC Decision Date: 11/23/19 Decision Time: 06:20
[2019-11-23 05:21] LABS: Anisocytosis Slight; Basophils % (A) 0 %; Eosinophils # (A) 0.2 k/uL (0-0.7); Eosinophils % (A) 1 %; HCT 33.2 % (34.0-46.0); HGB 10.7 gm/dL (11.4-16.0); Hypochromasia Slight; Lymphocytes # (A) 1.7 k/uL (1.0-4.8); Lymphocytes % (A) 12 %; MCH 26.3 pg (25.0-35.0); MCHC 32.2 g/dL (31.0-37.0); Monocytes % (A) 7 %; Neutrophils # (A) 11.5 k/uL (1.3-7.7); Neutrophils % (A) 79 %; Platelet Count 302 k/uL (150-450); RBC 4.06 m/uL (3.80-5.40); RDW 16.7 % (11.5-15.5); WBC 14.6 k/uL (3.8-10.6)
--- NOTE | 2019-11-23 05:42 | XR ---
EXAMINATION TYPE: XR ankle complete LT DATE OF EXAM: 11/23/2019 COMPARISON: 04/24/2015 HISTORY: Left ankle infection TECHNIQUE: 3 views FINDINGS: There is intramedullary humble in the distal tibia extending through the talus and calcaneus r elated to hindfoot arthrodesis. There are multiple screws. There is extensive sclerosis around the an kle. There is narrowing of the talonavicular joint space. Bones are in anatomic position. IMPRESSION: There is arthrodesis of the hindfoot. No definite sign of osteomyelitis. Extensive athero sclerosis related to arthrodesis surgery.
--- NOTE | 2019-11-23 05:44 | XR ---
EXAMINATION TYPE: XR foot limited LT DATE OF EXAM: 11/23/2019 COMPARISON: 04/24/2015 HISTORY: Foot pain TECHNIQUE: 2 views FINDINGS: There is some soft tissue swelling of the forefoot. There is hindfoot fusion surgery with t riple arthrodesis. The metatarsals appear intact. There is small erosion at the base of the proximal phalanx of the big toe. There is vascular calcification. I see no focal bone destruction to suggest o steomyelitis. IMPRESSION: Soft tissue swelling consistent with some cellulitis. Hindfoot fusion surgery. No definit e sign of osteomyelitis. No fracture seen.
--- NOTE | 2019-11-23 05:46 | XR ---
EXAMINATION TYPE: XR foot limited RT DATE OF EXAM: 11/23/2019 COMPARISON: None HISTORY: Right ankle infection TECHNIQUE: 2 views FINDINGS: There is an Achilles calcaneal spur. There is vascular calcification. Metatarsals are intac t. There is mild hammertoe deformity of the second third fourth digits. There are no erosions. IMPRESSION: Vascular calcification. Calcaneal spurring. No fracture seen. No evidence of osteomyeliti s.
[2019-11-23 05:47] LABS: MCV 81.7 fL (80.0-100.0)
[2019-11-23 06:03] LABS: Albumin 3.3 g/dL (3.5-5.0); C Reactive Protein 12.5 mg/L (<10.0); Calcium 8.6 mg/dL (8.4-10.2); Potassium 4.6 mmol/L (3.5-5.1); Total Bilirubin 0.4 mg/dL (0.2-1.3); Total Protein 5.9 g/dL (6.3-8.2)
[2019-11-23] MEDS ORDERED: VANCOMYCIN IV PER PHARMACY 1 EACH MISC MISCELLANE PRN (06:14)
[2019-11-23] MEDS ORDERED: SODIUM CHLORIDE 0.9% 1,000 ML IV ONE (06:15)
[2019-11-23] MEDS ORDERED: NALOXONE 0.4 MG/ML 1 ML VIAL IV PRN (06:23)
[2019-11-23] MEDS ORDERED: AMPICILLIN-SULBACTAM 3 GM in SODIUM CHLORIDE 0.9% 100 ML IVPB ONE (06:30)
[2019-11-23 06:38] LABS: INR 0.9 (<1.2)
[2019-11-23 06:39] LABS: Prothrombin Time 9.5 sec (9.0-12.0)
[2019-11-23 06:40] LABS: Partial Thromboplastin Time 19.9 sec (22.0-30.0)
[2019-11-23 06:41] LABS: Appearance,Urine Cloudy (Clear); Bacteria,Urine Rare /hpf; Bilirubin,Urine Negative (Negative); Blood,Urine Negative (Negative); Color,Urine Light Yellow; Glucose,Urine (UA) Negative (Negative); Hyaline Casts,Urine 7 /lpf (0-2); Ketones,Urine Negative (Negative); Leukocyte Esterase,Urine Moderate (Negative); Mucus,Urine Rare /hpf; Nitrite,Urine Negative (Negative); PH, Urine 5.5 (5.0-8.0); Protein,Urine Trace (Negative); RBC,Urine 3 /hpf (0-5); Specific Gravity,Urine 1.011 (1.001-1.035); Squamous Epithelial Cell,Urine 2 /hpf (0-4); Urobilinogen,Urine <2.0 mg/dL (<2.0); WBC,Urine 18 /hpf (0-5)
[2019-11-23] MEDS ORDERED: VANCOMYCIN 1,500 MG in SODIUM CHLORIDE 0.9% 250 ML IVPB ONE (07:00)
[2019-11-23 07:58] LABS: Glucose,Whole Blood 119 mg/dL (75-99)
[2019-11-23] MEDS: SODIUM CHLORIDE 0.9% 1,000 ML IV SCH ×2 (08:02→20:10)
--- NOTE | 2019-11-23 10:27 | P.CONS ---
History of Present Illness - Reason for Consult Consult date: 11/23/19 Wound care - History of Present Illness This is a 64-year-old pleasant female being seen on for nonhealing ulcerations to the left calcaneus and the second digit of the right foot dorsal aspect. Patient is known to the wound care center for previous diabetic foot ulceration that has healed in the past. Patient states that she noticed the left heel ulceration approximately 1 day ago because of discomfort and tenderness to the site. At that time patient started to apply Santyl which she had at home. Patient also states that she's had a blister to the second digit of the right foot for quite a few months. She is just unable to have a healed. Patient states that she has not noticed any significant drainage from the sites of tenderness to the left calcaneus. X-ray did not show any signs of osteomyelitis. Patient had a previous ankle fracture with fixation performed by a surgeon at [facility]. Patient started to have some discomfort in November feeling like a nail was poking her at that time the surgeon did remove hardware from the site and she was placed on antibiotics. Patient does not wear diabetic shoes. She spends the majority of her time in a wheelchair where she uses her heels to push off and get around. Patient's past medical history significant for coronary artery disease, diabetes mellitus, hyperlipidemia, osteoarthritis, chronic kidney disease. Review of Systems Review Of Systems: Constitutional: No fever, no chills, no night sweats. No weight change. No weakness, fatigue or lethargy. No daytime sleepiness. Integumentary:reports wounds, no lesions. No rash or pruritus. No unusual bruising. No change in hair or nails. Past Medical History Past Medical History: Coronary Artery Disease (CAD), Diabetes Mellitus, Hyperlipidemia, Osteoarthritis (OA), Renal Disease Additional Past Medical History / Comment(s): states back pain, current "c reacked bone in left ankle wrapped with [place] wrap CURRENTLY USING CRUTCHES broke left ankle aug 26 2018. History of Any Multi-Drug Resistant Organisms: None Reported Past Surgical History: Appendectomy, Section, Cholecystectomy, Heart Catheterization, Tonsillectomy, Tubal Ligation Additional Past Surgical History / Comment(s): carpal tunnel both wrists,shoulder surgery, ankle reconstruction. Past Anesthesia/Blood Transfusion Reactions: No Reported Reaction Past Psychological History: No Psychological Hx Reported Smoking Status: Former smoker Past Alcohol Use History: Occasional Past Drug Use History: None Reported - Past Family History Mother Family Medical History: Cancer, Coronary Artery Disease (CAD), Diabetes Mellitus Additional Family Medical History / Comment(s): ovarian cancer Father Family Medical History: Coronary Artery Disease (CAD), Diabetes Mellitus Brother(s) Additional Family Medical History / Comment(s): Brother #1 (Adam) colon cancer, liver cancer, lung cancer, diabetic, brain mets. Brother #2 (Elie) colon cancer, lung cancer with brain mets Sister(s) Family Medical History: Fibromyalgia Additional Family Medical History / Comment(s): Sister #1 (Desi) ovarian cancer and breast cancer with brain mets. Sister #2 (Celsa) stomach cancer, ovarian cancer Medications and Allergies Home Medications Medication Instructions Recorded Confirmed Type Levocetirizine Dihydrochloride 5 mg PO HS 12/21/17 11/23/19 History sitaGLIPtin [Januvia] 100 mg PO QAM 12/21/17 11/23/19 History Gabapentin 600 mg PO TID 06/29/19 11/23/19 History Isosorbide Mononitrate ER [Imdur] 30 mg PO QAM 06/29/19 11/23/19 History Nitroglycerin Sl Tabs [Nitrostat] 0.4 mg SUBLINGUAL Q5M PRN 06/29/19 11/23/19 History Rosuvastatin [Crestor] 20 mg PO HS #30 tab 07/01/19 11/23/19 Rx Torsemide [Demadex] 10 mg PO BID #60 tablet 07/01/19 11/23/19 Rx Aspirin 81 mg PO QAM 11/02/19 11/23/19 History Colchicine [Colcrys] 0.6 mg PO BID 11/02/19 11/23/19 History Enalapril Maleate [Vasotec] 2.5 mg PO QAM 11/02/19 11/23/19 History Febuxostat [Uloric] 80 mg PO QAM 11/02/19 11/23/19 History Ibuprofen [Motrin] 600 mg PO Q6HR PRN 11/23/19 11/23/19 History Allergies Allergy/AdvReac Type Severity Reaction Status Date / Time adhesive Allergy Rash/Hives Verified 11/23/19 07:17 Sulfa (Sulfonamide Allergy Anaphylaxis Verified 11/23/19 07:17 Antibiotics) Physical Exam Vitals: Vital Signs Temp Pulse Pulse Resp BP BP Pulse Ox 11/23/19 07:53 97.8 F 74 18 122/55 97 11/23/19 07:08 98 F 84 18 101/71 96 11/23/19 05:40 74 18 116/51 96 11/23/19 03:22 98.1 F 83 18 103/88 96 Intake and Output 11/22/19 11/23/19 11/23/19 22:59 06:59 14:59 Other: Weight 84.822 kg Physical exam: General Appearance: Alert, cooperative, no distress, appears stated age. Skin: Left calcaneus ulceration with fat layer exposure, tender to touch with the redness noted, ulceration has significant amount of slough no granulation noted measuring approximately 2.5 x 2.5 x 0.2, ulceration does not show any undermining or tunneling. Induration around. periWound.. Ulceration to the second toe dorsal aspect of right foot has fatty layer exposure, measuring ap proximately 1 x 1 x 0.2 no granulation seen in wound bed. No redness or induration, no tunneling or undermining noted. or all other Skin color, texture, tugor normal, no rashes or lesions. Neurologic: Alert oriented x3 Results CBC & Chem 7: 11/23/19 05:00 11/23/19 05:00 Labs: Abnormal Lab Results - Last 24 Hours (Table) 11/23/19 11/23/19 11/23/19 Range/Units 05:00 05:00 05:00 WBC 14.6 H (3.8-10.6) k/uL Hgb 10.7 L (11.4-16.0) gm/dL Hct 33.2 L (34.0-46.0) % RDW 16.7 H (11.5-15.5) % Neutrophils # 11.5 H (1.3-7.7) k/uL ESR (0-20) mm/hr APTT 19.9 L (22.0-30.0) sec Sodium 134 L (137-145) mmol/L Chloride 109 H (98-107) mmol/L Carbon Dioxide 14 L (22-30) mmol/L BUN 35 H (7-17) mg/dL Creatinine 1.21 H (0.52-1.04) mg/dL Glucose 142 H (74-99) mg/dL POC Glucose (mg/dL) (75-99) mg/dL ALT 40 H (4-34) U/L Creatine Kinase 189 H (30-135) U/L C-Reactive Protein 12.5 H (<10.0) mg/L Total Protein 5.9 L (6.3-8.2) g/dL Albumin 3.3 L (3.5-5.0) g/dL Urine Appearance (Clear) Urine Protein (Negative) Ur Leukocyte Esterase (Negative) Urine WBC (0-5) /hpf Urine Bacteria (None) /hpf Hyaline Casts (0-2) /lpf Urine Mucus (None) /hpf 11/23/19 11/23/19 11/23/19 Range/Units 06:25 06:43 07:54 WBC (3.8-10.6) k/uL Hgb (11.4-16.0) gm/dL Hct (34.0-46.0) % RDW (11.5-15.5) % Neutrophils # (1.3-7.7) k/uL ESR 35 H (0-20) mm/hr APTT (22.0-30.0) sec Sodium (137-145) mmol/L Chloride (98-107) mmol/L Carbon Dioxide (22-30) mmol/L BUN (7-17) mg/dL Creatinine (0.52-1.04) mg/dL Glucose (74-99) mg/dL POC Glucose (mg/dL) 119 H (75-99) mg/dL ALT (4-34) U/L Creatine Kinase (30-135) U/L C-Reactive Protein (<10.0) mg/L Total Protein (6.3-8.2) g/dL Albumin (3.5-5.0) g/dL Urine Appearance Cloudy H (Clear) Urine Protein Trace H (Negative) Ur Leukocyte Esterase Moderate H (Negative) Urine WBC 18 H (0-5) /hpf Urine Bacteria Rare H (None) /hpf Hyaline Casts 7 H (0-2) /lpf Urine Mucus Rare H (None) /hpf Assessment and Plan (1) Diabetic ulcer of foot with fat layer exposed Current Visit: No Status: Acute Code(s): E11.621 - TYPE 2 DIABETES MELLITUS WITH FOOT ULCER; L97.502 - NON-PRS CHRONIC ULCER OTH PRT UNSP FOOT W FAT LAYER EXPOSED SNOMED Code(s): 839709067 (2) Non-pressure chronic ulcer of left heel and midfoot with fat layer exposed Current Visit: Yes Status: Acute Code(s): L97.422 - NON-PRS CHR ULCER OF LEFT HEEL AND MIDFOOT W FAT LAYER EXPOS SNOMED Code(s): 851626059 (3) Pressure ulcer of right foot, stage 2 Current Visit: Yes Status: Acute Code(s): L89.892 - PRESSURE ULCER OF OTHER SITE, STAGE 2 SNOMED Code(s): 591564986 Plan: Apply Santyl to the left calcaneus and right second toe ulceration. Edge to as nickel in depth saline moistened gauze, dry gauze, rolled gauze and secure with paper tape. Consideration for a bone scan or MRI to rule out osteomyelitis. Nonweightbearing to left calcaneus. Discussed with patient to return to the wound care center on outpatient basis for debridement and continued advance woun d care treatment. Patient verbalized understanding. Thank you kindly for the consultation. Any questions please contact the wound care center. DNP note has been reviewed and discussed with Dr. Fraser and the impression and plan of care has been directed as dictated.
[2019-11-23] MEDS ORDERED: traMADol 50 MG TAB PO PRN (11:01)
[2019-11-23 11:55] LABS: Glucose,Whole Blood 169 mg/dL (75-99)
[2019-11-23] MEDS: SENNOSIDES 8.6 MG TAB PO SCH (13:12)
[2019-11-23] MEDS: HYDROcodone/APAP 7.5-325MG 1 EACH TAB PO PRN ×2 (13:12→19:02)
[2019-11-23] MEDS: COLLAGENASE 250 UNIT/GM OINTMENT 30 GM TUBE TOPICAL SCH (13:43)
--- NOTE | 2019-11-23 14:22 | P.HPIM ---
History of Present Illness 64-year-old the pleasant female came in because of nonhealing ulcer in the left Calcaneus along with severe cellulitis and probably infected hardware. Patient had an ankle fracture which was repaired in [facility] subsequently has to do reconstructive surgery and had an infected hardware because of which the the hardware was removed and antibiotic beads were placed. Patient started having redness nonhealing ulcer the workup of the weeks ago which is much worse since couple days because of which patient came to ER patient denied any fever chills patient has significant redness swelling of the entire right leg most of the swelling is extending up to the mid thigh area. And redness extending up to the right knee. With a stage II calcaneal ulcer without any significant drainage. Patient is on vancomycin may need gram-negative coverage as well as infectious disease was consulted patient does have diabetes patient has lymphedema extending diabetic foot ulcer and cellulitis because of which patient will require anaerobic and gram-negative coverage as well. Wound cultures will be obtained. Patient is on torsemide patient had normal ejection fraction the past that revealed her previous chart as per my dictation the past patient doesn't have any history of congestive heart failure. Patient never had any fluid in the lungs. Patient has renal dysfunction because of the diuretic therapy which is being held. Patient will be started on IV fluids gently with close monitoring for any pulmonary edema. Review of Systems REVIEW OF SYSTEMS: CONSTITUTIONAL: No fever, no malaise, no fatigue. HEENT: No recent visual problems or hearing problems. Denied any sore throat. CARDIOVASCULAR: No chest pain, orthopnea, PND, no palpitations, no syncope. PULMONARY: No shortness of breath, no cough, no hemoptysis. GASTROINTESTINAL: No diarrhea, no nausea, no vomiting, no abdominal pain. NEUROLOGICAL: No headaches, no weakness, no numbness. HEMATOLOGICAL: Denies any bleeding or petechiae. GENITOURINARY: Denies any burning micturition, frequency, or urgency. MUSCULOSKELETAL/RHEUMATOLOGICAL: As mentioned in HPI ENDOCRINE: Denies any polyuria or polydipsia. The rest of the 14-point review of systems is negative. Past Medical History Past Medical History: Coronary Artery Disease (CAD), Heart Failure, Diabetes Mellitus, Hyperlipidemia, Myocardial Infarction (DC), Osteoarthritis (OA), Renal Disease, Rheumatoid Arthritis (RA) Additional Past Medical History / Comment(s): states back pain, broke left ankle aug 26 2018, DC in jun 2019, gout, Right breast found a "spot" (has not been seen yet) Last Myocardial Infarction Date:: 06/03/2019 History of Any Multi-Drug Resistant Organisms: None Reported Past Surgical History: Appendectomy, Section, Cholecystectomy, Heart Catheterization, Tonsillectomy, Tubal Ligation Additional Past Surgical History / Comment(s): carpal tunnel both wrists,shoulder surgery, ankle reconstruction. Past Anesthesia/Blood Transfusion Reactions: No Reported Reaction Past Psychological History: No Psychological Hx Reported Smoking Status: Former smoker Past Alcohol Use History: Occasional Additional Past Alcohol Use History / Comment(s): Started smoking in 1967, quit smoking in 1977, smoked 2ppd Past Drug Use History: None Reported - Past Family History Mother Family Medical History: Cancer, Coronary Artery Disease (CAD), Diabetes Mellitus Additional Family Medical History / Comment(s): ovarian cancer Father Family Medical History: Coronary Artery Disease (CAD), Diabetes Mellitus Brother(s) Additional Family Medical History / Comment(s): Brother #1 (Adam) colon cancer, liver cancer, lung cancer, diabetic, brain mets. Brother #2 (Elie) colon cancer, lung cancer with brain mets Sister(s) Family Medical History: Fibromyalgia Additional Family Medical History / Comment(s): Sister #1 (Desi) ovarian cancer and breast cancer with brain mets. Sister #2 (Celsa) stomach cancer, ovarian cancer Medications and Allergies Home Medications Medication Instructions Recorded Confirmed Type Levocetirizine Dihydrochloride 5 mg PO HS 12/21/17 11/23/19 History sitaGLIPtin [Januvia] 100 mg PO QAM 12/21/17 11/23/19 History Gabapentin 600 mg PO TID 06/29/19 11/23/19 History Isosorbide Mononitrate ER [Imdur] 30 mg PO QAM 06/29/19 11/23/19 History Nitroglycerin Sl Tabs [Nitrostat] 0.4 mg SUBLINGUAL Q5M PRN 06/29/19 11/23/19 History Rosuvastatin [Crestor] 20 mg PO HS #30 tab 07/01/19 11/23/19 Rx Torsemide [Demadex] 10 mg PO BID #60 tablet 07/01/19 11/23/19 Rx Aspirin 81 mg PO QAM 11/02/19 11/23/19 History Colchicine [Colcrys] 0.6 mg PO BID 11/02/19 11/23/19 History Enalapril Maleate [Vasotec] 2.5 mg PO QAM 11/02/19 11/23/19 History Febuxostat [Uloric] 80 mg PO QAM 11/02/19 11/23/19 History Ibuprofen [Motrin] 600 mg PO Q6HR PRN 11/23/19 11/23/19 History Allergies Allergy/AdvReac Type Severity Reaction Status Date / Time adhesive Allergy Rash/Hives Verified 11/23/19 07:17 Sulfa (Sulfonamide Allergy Anaphylaxis Verified 11/23/19 07:17 Antibiotics) Physical Exam Vitals: Vital Signs Temp Pulse Pulse Resp BP BP Pulse Ox 11/23/19 07:53 97.8 F 74 18 122/55 97 11/23/19 07:08 98 F 84 18 101/71 96 11/23/19 05:40 74 18 116/51 96 11/23/19 03:22 98.1 F 83 18 103/88 96 Intake and Output 11/22/19 11/23/19 11/23/19 22:59 06:59 14:59 Other: # Voids 2 # Bowel Movements 1 Weight 84.822 kg 84.822 kg PHYSICAL EXAMINATION: GENERAL: The patient is alert and oriented x3, not in any acute distress. Obese HEENT: Pupils are round and equally reacting to light. EOMI. No scleral icterus. No conjunctival pallor. Normocephalic, atraumatic. No pharyngeal erythema. No thyromegaly. CARDIOVASCULAR: S1 and S2 present. No murmurs, rubs, or gallops. PULMONARY: Chest is clear to auscultation, no wheezing or crackles. ABDOMEN: Soft, nontender, nondistended, normoactive bowel sounds. No palpable organomegaly. MUSCULOSKELETAL: No joint swelling or deformity. EXTREMITIES: No cyanosis, clubbing, or pedal edema. NEUROLOGICAL: Gross neurological examination did not reveal any focal deficits. SKIN: Cellulitis and ulcer as described above Results CBC & Chem 7: 11/23/19 05:00 11/23/19 05:00 Labs: Abnormal Lab Results - Last 24 Hours (Table) 11/23/19 11/23/19 11/23/19 Range/Units 05:00 05:00 05:00 WBC 14.6 H (3.8-10.6) k/uL Hgb 10.7 L (11.4-16.0) gm/dL Hct 33.2 L (34.0-46.0) % RDW 16.7 H (11.5-15.5) % Neutrophils # 11.5 H (1.3-7.7) k/uL ESR (0-20) mm/hr APTT 19.9 L (22.0-30.0) sec Sodium 134 L (137-145) mmol/L Chloride 109 H (98-107) mmol/L Carbon Dioxide 14 L (22-30) mmol/L BUN 35 H (7-17) mg/dL Creatinine 1.21 H (0.52-1.04) mg/dL Glucose 142 H (74-99) mg/dL POC Glucose (mg/dL) (75-99) mg/dL ALT 40 H (4-34) U/L Creatine Kinase 189 H (30-135) U/L C-Reactive Protein 12.5 H (<10.0) mg/L Total Protein 5.9 L (6.3-8.2) g/dL Albumin 3.3 L (3.5-5.0) g/dL Urine Appearance (Clear) Urine Protein (Negative) Ur Leukocyte Esterase (Negative) Urine WBC (0-5) /hpf Urine Bacteria (None) /hpf Hyaline Casts (0-2) /lpf Urine Mucus (None) /hpf 11/23/19 11/23/19 11/23/19 Range/Units 06:25 06:43 07:54 WBC (3.8-10.6) k/uL Hgb (11.4-16.0) gm/dL Hct (34.0-46.0) % RDW (11.5-15.5) % Neutrophils # (1.3-7.7) k/uL ESR 35 H (0-20) mm/hr APTT (22.0-30.0) sec Sodium (137-145) mmol/L Chloride (98-107) mmol/L Carbon Dioxide (22-30) mmol/L BUN (7-17) mg/dL Creatinine (0.52-1.04) mg/dL Glucose (74-99) mg/dL POC Glucose (mg/dL) 119 H (75-99) mg/dL ALT (4-34) U/L Creatine Kinase (30-135) U/L C-Reactive Protein (<10.0) mg/L Total Protein (6.3-8.2) g/dL Albumin (3.5-5.0) g/dL Urine Appearance Cloudy H (Clear) Urine Protein Trace H (Negative) Ur Leukocyte Esterase Moderate H (Negative) Urine WBC 18 H (0-5) /hpf Urine Bacteria Rare H (None) /hpf Hyaline Casts 7 H (0-2) /lpf Urine Mucus Rare H (None) /hpf 11/23/19 Range/Units 11:52 WBC (3.8-10.6) k/uL Hgb (11.4-16.0) gm/dL Hct (34.0-46.0) % RDW (11.5-15.5) % Neutrophils # (1.3-7.7) k/uL ESR (0-20) mm/hr APTT (22.0-30.0) sec Sodium (137-145) mmol/L Chloride (98-107) mmol/L Carbon Dioxide (22-30) mmol/L BUN (7-17) mg/dL Creatinine (0.52-1.04) mg/dL Glucose (74-99) mg/dL POC Glucose (mg/dL) 169 H (75-99) mg/dL ALT (4-34) U/L Creatine Kinase (30-135) U/L C-Reactive Protein (<10.0) mg/L Total Protein (6.3-8.2) g/dL Albumin (3.5-5.0) g/dL Urine Appearance (Clear) Urine Protein (Negative) Ur Leukocyte Esterase (Negative) Urine WBC (0-5) /hpf Urine Bacteria (None) /hpf Hyaline Casts (0-2) /lpf Urine Mucus (None) /hpf Thrombosis Risk Factor Assmnt - Choose All That Apply Any of the Below Risk Factors Present?: Yes Each Factor Represents 1 point: Medical pt on bed rest, Obesity (BMI >25), Swollen legs (current) Other Risk Factors: Yes Each Risk Factor Represents 2 Points: Age 61-74 years Thrombosis Risk Factor Assessment Total Risk Factor Score: 5 Thrombosis Risk Factor Assessment Level: High Risk Assessment and Plan Plan: Diabetic foot ulcer with the significant cellulitis patient on vancomycin patient will be started on anaerobic and gram-negative coverage as well won't cultures will be obtained. Because of significant issues with her hardware in the left ankle patient probably need to be transferred back to [facility] with she has her orthopedic surgeon. There is evidence of possible colitis as per the x-ray. -Left calcaneal stage II nonhealing ulcers -Type 2 diabetes mellitus patient will be resumed on home regimen along with the sliding scale insulin -Possibly of mild acute renal failure possibly of chronic kidney disease stage II from diabetic nephropathy neck acute renal failure is secondary to prerenal azotemia excessive diuretic therapy. Therapy will be held and patient will be started on gentle hydration. -Leukocytosis due to assessment #1 -Coronary artery disease -Hyperlipidemia -Due to prophylaxis with subcutaneous heparin and will also need GI prophylaxis with Pepcid
[2019-11-23] MEDS: HEPARIN SODIUM,PORCINE 5,000 UNIT/ML 1 ML VIAL SQ SCH ×3 (16:30→23:13)
[2019-11-23] MEDS: GABAPENTIN 300 MG CAP PO SCH ×2 (16:31→21:01)
[2019-11-23 17:00] LABS: Glucose,Whole Blood 180 mg/dL (75-99)
[2019-11-23 20:48] LABS: Glucose,Whole Blood 214 mg/dL (75-99)
[2019-11-23] MEDS: COLCHICINE 0.6 MG EACH PO SCH (21:01)
[2019-11-23] MEDS: FAMOTIDINE 20 MG TAB PO SCH (21:02)
[2019-11-23] MEDS: ATORVASTATIN 40 MG TAB PO SCH (21:02)
[2019-11-24] MEDS: HYDROcodone/APAP 7.5-325MG 1 EACH TAB PO PRN ×5 (02:18→23:54)
[2019-11-24] MEDS: SODIUM CHLORIDE 0.9% 1,000 ML IV SCH ×2 (05:01→20:12)
[2019-11-24] MEDS: VANCOMYCIN 1,500 MG in SODIUM CHLORIDE 0.9% 250 ML IVPB SCH (05:02)
[2019-11-24 07:12] LABS: Glucose,Whole Blood 157 mg/dL (75-99)
[2019-11-24] MEDS: HEPARIN SODIUM,PORCINE 5,000 UNIT/ML 1 ML VIAL SQ SCH ×3 (07:23→23:08)
[2019-11-24] MEDS: SENNOSIDES 8.6 MG TAB PO SCH (07:24)
[2019-11-24] MEDS: ASPIRIN 81 MG PO SCH (07:33)
[2019-11-24] MEDS: COLCHICINE 0.6 MG EACH PO SCH ×2 (07:33→20:12)
[2019-11-24] MEDS: LINAGLIPTIN 5 MG TABLET PO SCH (07:33)
[2019-11-24] MEDS: GABAPENTIN 300 MG CAP PO SCH ×3 (07:33→20:12)
[2019-11-24] MEDS: ISOSORBIDE MONONITRATE ER 30 MG TAB.ER.24H PO SCH (07:33)
[2019-11-24] MEDS: FAMOTIDINE 20 MG TAB PO SCH (07:33)
[2019-11-24] MEDS: ONDANSETRON 4 MG/2 ML VIAL IVP PRN ×2 (10:17→18:19)
--- NOTE | 2019-11-24 11:12 | P.CONS ---
History of Present Illness - Reason for Consult Consult date: 11/23/19 cellulitis Requesting physician: Mary Lou Soto - Chief Complaint diarrhea x weeks and non healing wound to left ankle x weeks - History of Present Illness Patient is a 64-year-old female who did have a complicated history as well as sunlight as her left ankle is constant at the patient did have multiple surgeries and did have significant underlying hardware patient had noticed in November with a nail was sticking out the patient has seen her surgeon at [facility] who remove some of the screws patient has been treated with a course of oral antibiotic form of Keflex however she mentions no cultures were done the patient continued to have a nonhealing of the wound is mostly on the heel side which has been there for couple of weeks now she has been complaining of pain to the ankle and the heel wound area to be throbbing worse when it is touched intensity can be 7 out of 10 and no radiation patient did have mild drainage but no foul-smelling. Patient also complaining of diarrhea with multiple loose stools that been going on for the last few weeks to months patient denies having any nausea no vomiting and denies any significant abdominal pain however did have some lower abdominal pain. Patient on presentation the hospital has been afebrile her white count was mildly elevated at 14,000 patient did have x-rays of the foot which show soft tissue swelling consistent with some cellulitis hindfoot fusion surgery no definite osteomyelitis Review of Systems Positive point has been mentioned HPI rest of the systems are negative Past Medical History Past Medical History: Coronary Artery Disease (CAD), Diabetes Mellitus, Hyperlipidemia, Osteoarthritis (OA), Renal Disease Additional Past Medical History / Comment(s): states back pain, current "creacked bone in left ankle wrapped with [place] wrap CURRENTLY USING CRUTCHES broke left ankle aug 26 2018. History of Any Multi-Drug Resistant Organisms: None Reported Past Surgical History: Appendectomy, Section, Cholecystectomy, Heart Catheterization, Tonsillectomy, Tubal Ligation Additional Past Surgical History / Comment(s): carpal tunnel both wrists,shoulder surgery, ankle reconstruction. Past Anesthesia/Blood Transfusion Reactions: No Reported Reaction Past Psychological History: No Psychological Hx Reported Smoking Status: Former smoker Past Alcohol Use History: Occasional Past Drug Use History: None Reported - Past Family History Mother Family Medical History: Cancer, Coronary Artery Disease (CAD), Diabetes Mellitus Additional Family Medical History / Comment(s): ovarian cancer Father Family Medical History: Coronary Artery Disease (CAD), Diabetes Mellitus Brother(s) Additional Family Medical History / Comment(s): Brother #1 (Adam) colon cancer, liver cancer, lung cancer, diabetic, brain mets. Brother #2 (Elie) colon cancer, lung cancer with brain mets Sister(s) Family Medical History: Fibromyalgia Additional Family Medical History / Comment(s): Sister #1 (Desi) ovarian cancer and breast cancer with brain mets. Sister #2 (Celsa) stomach cancer, ovarian cancer Medications and Allergies Home Medications Medication Instructions Recorded Confirmed Type Levocetirizine Dihydrochloride 5 mg PO HS 12/21/17 11/23/19 History sitaGLIPtin [Januvia] 100 mg PO QAM 12/21/17 11/23/19 History Gabapentin 600 mg PO TID 06/29/19 11/23/19 History Isosorbide Mononitrate ER [Imdur] 30 mg PO QAM 06/29/19 11/23/19 History Nitroglycerin Sl Tabs [Nitrostat] 0.4 mg SUBLINGUAL Q5M PRN 06/29/19 11/23/19 History Rosuvastatin [Crestor] 20 mg PO HS #30 tab 07/01/19 11/23/19 Rx Torsemide [Demadex] 10 mg PO BID #60 tablet 07/01/19 11/23/19 Rx Aspirin 81 mg PO QAM 11/02/19 11/23/19 History Colchicine [Colcrys] 0.6 mg PO BID 11/02/19 11/23/19 History Enalapril Maleate [Vasotec] 2.5 mg PO QAM 11/02/19 11/23/19 History Febuxostat [Uloric] 80 mg PO QAM 11/02/19 11/23/19 History Ibuprofen [Motrin] 600 mg PO Q6HR PRN 11/23/19 11/23/19 History Allergies Allergy/AdvReac Type Severity Reaction Status Date / Time adhesive Allergy Rash/Hives Verified 11/23/19 07:17 Sulfa (Sulfonamide Allergy Anaphylaxis Verified 11/23/19 07:17 Antibiotics) Physical Exam Vitals: Vital Signs Temp Pulse Pulse Resp BP BP Pulse Ox 11/23/19 07:53 97.8 F 74 18 122/55 97 11/23/19 07:08 98 F 84 18 101/71 96 11/23/19 05:40 74 18 116/51 96 11/23/19 03:22 98.1 F 83 18 103/88 96 Intake and Output 11/22/19 11/23/19 11/23/19 22:59 06:59 14:59 Other: Weight 84.822 kg GENERAL DESCRIPTION: Elderly female lying in bed, no distress. No tachypnea or accessory muscle of respiration use. HEENT: Shows Pallor , no scleral icterus. Oral mucous membrane is dry. No pharyngeal erythema or thrush NECK: Trachea central, no thyromegaly. LUNGS: Unlabored breathing. Clear to auscultation anteriorly. No wheeze or crackle. HEART: S1, S2, regular rate and rhythm. No loud murmur ABDOMEN: Soft, no tenderness , guarding or rigidity, no organomegaly EXTREMITIES: Left heel did have a wound with minimal slough no surrounding swelling or redness and the pustule which was cultured. SKIN: No rash, no masses palpable. NEUROLOGICAL: The patient is awake, alert, oriented x3, mood and affect normal. Results CBC & Chem 7: 11/23/19 05:00 11/23/19 05:00 Labs: Abnormal Lab Results - Last 24 Hours (Table) 11/23/19 11/23/19 11/23/19 Range/Units 05:00 05:00 05:00 WBC 14.6 H (3.8-10.6) k/uL Hgb 10.7 L (11.4-16.0) gm/dL Hct 33.2 L (34.0-46.0) % RDW 16.7 H (11.5-15.5) % Neutrophils # 11.5 H (1.3-7.7) k/uL ESR (0-20) mm/hr APTT 19.9 L (22.0-30.0) sec Sodium 134 L (137-145) mmol/L Chloride 109 H (98-107) mmol/L Carbon Dioxide 14 L (22-30) mmol/L BUN 35 H (7-17) mg/dL Creatinine 1.21 H (0.52-1.04) mg/dL Glucose 142 H (74-99) mg/dL POC Glucose (mg/dL) (75-99) mg/dL ALT 40 H (4-34) U/L Creatine Kinase 189 H (30-135) U/L C-Reactive Protein 12.5 H (<10.0) mg/L Total Protein 5.9 L (6.3-8.2) g/dL Albumin 3.3 L (3.5-5.0) g/dL Urine Appearance (Clear) Urine Protein (Negative) Ur Leukocyte Esterase (Negative) Urine WBC (0-5) /hpf Urine Bacteria (None) /hpf Hyaline Casts (0-2) /lpf Urine Mucus (None) /hpf 11/23/19 11/23/19 11/23/19 Range/Units 06:25 06:43 07:54 WBC (3.8-10.6) k/uL Hgb (11.4-16.0) gm/dL Hct (34.0-46.0) % RDW (11.5-15.5) % Neutrophils # (1.3-7.7) k/uL ESR 35 H (0-20) mm/hr APTT (22.0-30.0) sec Sodium (137-145) mmol/L Chloride (98-107) mmol/L Carbon Dioxide (22-30) mmol/L BUN (7-17) mg/dL Creatinine (0.52-1.04) mg/dL Glucose (74-99) mg/dL POC Glucose (mg/dL) 119 H (75-99) mg/dL ALT (4-34) U/L Creatine Kinase (30-135) U/L C-Reactive Protein (<10.0) mg/L Total Protein (6.3-8.2) g/dL Albumin (3.5-5.0) g/dL Urine Appearance Cloudy H (Clear) Urine Protein Trace H (Negative) Ur Leukocyte Esterase Moderate H (Negative) Urine WBC 18 H (0-5) /hpf Urine Bacteria Rare H (None) /hpf Hyaline Casts 7 H (0-2) /lpf Urine Mucus Rare H (None) /hpf Assessment and Plan Assessment: 1-patient with a chronic nonhealing wound to the left heel area and this patient did have a complicated left heel and ankle surgery with multiple hardware with a recent removal of one screw which was sticking out concern is likely for underlying deep infection and especially any of the hardware is infected will be hard to clear this infection without removal of the same 2-patient with diarrhea and this patient has been exposed to antibiotics consult will be for likely C. difficile colitis. (1) Cellulitis of left foot Current Visit: Yes Status: Acute Code(s): L03.116 - CELLULITIS OF LEFT LOWER LIMB SNOMED Code(s): 767135825 (2) Diarrhea Current Visit: Yes Status: Acute Code(s): R19.7 - DIARRHEA, UNSPECIFIED SNOMED Code(s): 45589693 Plan: 1-local wound culture has been obtained to guide antibiotic therapy 2-we will check a stool for C. difficile and treat if positive. 3-vancomycin pharmacy to dose target trough of 15 while watching his kidney function and vancomycin trough closely 4-local wound care with dry Aquacel silver dressing with change every 24-48 hours depends upon drainage We will follow on clinical condition and cultures to further adjust medication if needed Thank you for this consultation will follow this patient along with you Time with Patient: Greater than 30
[2019-11-24 11:42] LABS: Glucose,Whole Blood 224 mg/dL (75-99)
[2019-11-24 12:20] VITALS: BMI 32.1
[2019-11-24] MEDS: INSULIN ASPART (NovoLOG) 100 UNIT/ML VIAL SQ SCH ×3 (13:09→21:35)
[2019-11-24] MEDS: COLLAGENASE 250 UNIT/GM OINTMENT 30 GM TUBE TOPICAL SCH (13:12)
--- NOTE | 2019-11-24 16:09 | P.PN ---
Subjective 64-year-old the vianey female came in because of nonhealing ulcer in the left Calcaneus along with severe cellulitis and probably infected hardware. Patient had an ankle fracture which was repaired in [facility] subsequently has to do reconstructive surgery and had an infected hardware because of which the the hardware was removed and antibiotic beads were placed. Patient started having redness nonhealing ulcer the workup of the weeks ago which is much worse since couple days because of which patient came to ER patient denied any fever chills patient has significant redness swelling of the entire right leg most of the swelling is extending up to the mid thigh area. And redness extending up to the right knee. With a stage II calcaneal ulcer without any significant drainage. Patient is on vancomycin may need gram-negative coverage as well as infectious disease was consulted patient does have diabetes patient has lymphedema extending diabetic foot ulcer and cellulitis because of which patient will require anaerobic and gram-negative coverage as well. Wound cultures will be obtained. Patient is on torsemide patient had normal ejection fraction the past that revealed her previous chart as per my dictation the past patient doesn't have any history of congestive heart failure. Patient never had any fluid in the lungs. Patient has renal dysfunction because of the diuretic therapy which is being held. Patient will be started on IV fluids gently with close monitoring for any pulmonary edema. 11/24/2019 Her cellulitis is bit better today morning cultures are showing gram-negative bacilli, patient is on Unasyn and vancomycin. Constitutional: Denied any fatigue denied any fever. Cardio vascular: denied any chest pain, palpitations Gastrointestinal denied any nausea vomiting Pulmonary: Denied any shortness of breath cough Neurologic denied any new focal deficits All inpatient medications were reviewed and appropriate changes in these medications as dictated in the interval history and assessment and plan. Objective - Vital Signs Vital signs: Vital Signs Temp 97.0 F L 11/24/19 14: Pulse 83 11/24/19 14: Resp 16 11/24/19 14: BP 128/64 11/24/19 14: Pulse Ox 94 L 11/24/19 14:22 Intake & Output 11/23/19 11/24/19 11/24/19 18:59 06:59 18:59 Intake Total 600 700 Balance 600 700 Weight 84.822 kg 84.822 kg Intake: Oral 600 700 Other: # Voids 2 1 1 # Bowel Movements 1 1 1 - Exam PHYSICAL EXAMINATION: GENERAL: The patient is alert and oriented x3, not in any acute distress. Obese HEENT: Pupils are round and equally reacting to light. EOMI. No scleral icterus. No conjunctival pallor. Normocephalic, atraumatic. No pharyngeal erythema. No thyromegaly. CARDIOVASCULAR: S1 and S2 present. No murmurs, rubs, or gallops. PULMONARY: Chest is clear to auscultation, no wheezing or crackles. ABDOMEN: Soft, nontender, nondistended, normoactive bowel sounds. No palpable organomegaly. MUSCULOSKELETAL: No joint swelling or deformity. EXTREMITIES: No cyanosis, clubbing, or pedal edema. NEUROLOGICAL: Gross neurological examination did not reveal any focal deficits. SKIN: Cellulitis and ulcer as described above - Labs CBC & Chem 7: 11/23/19 05:00 11/23/19 05:00 Labs: Abnormal Lab Results - Last 24 Hours (Table) 11/23/19 11/23/19 11/24/19 Range/Units 16:56 20:45 07:01 POC Glucose (mg/dL) 180 H 214 H 157 H (75-99) mg/dL 11/24/19 Range/Units 11:34 POC Glucose (mg/dL) 224 H (75-99) mg/dL Microbiology - Last 24 Hours (Table) 11/23/19 06:25 Urine Culture - Preliminary Urine,Voided Gram Neg Bacilli 11/23/19 11:30 Gram Stain - Preliminary Foot - Left Wound Culture - Preliminary Gram Neg Bacilli 11/23/19 04:45 Blood Culture - Preliminary Blood No Growth after 24 hours 11/23/19 05:00 Blood Culture - Preliminary Blood No Growth after 24 hours Assessment and Plan Plan: Diabetic foot ulcer with the significant cellulitis patient on vancomycin patient will be started on anaerobic and gram-negative coverage with Unasyn wound cultures are positive for gram-negative bacilli . Because of significant issues with her hardware in the left ankle patient probably need to be transferred back to [facility] with she has her orthopedic surgeon. There is evidence of possible colitis as per the x-ray. -Left calcaneal stage II nonhealing ulcers -Type 2 diabetes mellitus patient will be resumed on home regimen along with the sliding scale insulin -Possibly of mild acute renal failure possibly of chronic kidney disease stage II from diabetic nephropathy neck acute renal failure is secondary to prerenal azotemia excessive diuretic therapy. Therapy will be held and patient will be started on gentle hydration. -Leukocytosis due to assessment #1 -Coronary artery disease -Hyperlipidemia -DVT prophylaxis with subcutaneous heparin and will also need GI prophylaxis with Pepcid
[2019-11-24] MEDS: CHOLESTYRAMINE (WITH SUGAR) 4 GM PACKET PO SCH (16:55)
[2019-11-24 17:05] LABS: Glucose,Whole Blood 161 mg/dL (75-99)
[2019-11-24] MEDS: ATORVASTATIN 40 MG TAB PO SCH (20:12)
[2019-11-24 21:31] LABS: Glucose,Whole Blood 182 mg/dL (75-99)
[2019-11-25] MEDS: VANCOMYCIN 1,500 MG in SODIUM CHLORIDE 0.9% 250 ML IVPB SCH (05:40)
[2019-11-25 07:05] LABS: Glucose,Whole Blood 141 mg/dL (75-99)
[2019-11-25] MEDS: HEPARIN SODIUM,PORCINE 5,000 UNIT/ML 1 ML VIAL SQ SCH ×2 (07:14→15:20)
[2019-11-25] MEDS: COLCHICINE 0.6 MG EACH PO SCH ×2 (07:17→20:52)
[2019-11-25] MEDS: GABAPENTIN 300 MG CAP PO SCH ×3 (07:17→20:52)
[2019-11-25] MEDS: SENNOSIDES 8.6 MG TAB PO SCH (07:17)
[2019-11-25] MEDS: ISOSORBIDE MONONITRATE ER 30 MG TAB.ER.24H PO SCH (07:17)
[2019-11-25] MEDS: LINAGLIPTIN 5 MG TABLET PO SCH (07:18)
[2019-11-25] MEDS: ASPIRIN 81 MG PO SCH (07:18)
[2019-11-25] MEDS: FAMOTIDINE 20 MG TAB PO SCH (07:18)
[2019-11-25] MEDS: INSULIN ASPART (NovoLOG) 100 UNIT/ML VIAL SQ SCH ×4 (07:18→20:52)
[2019-11-25] MEDS: HYDROcodone/APAP 7.5-325MG 1 EACH TAB PO PRN ×3 (07:18→19:47)
[2019-11-25] MEDS: COLLAGENASE 250 UNIT/GM OINTMENT 30 GM TUBE TOPICAL SCH (07:19)
[2019-11-25 07:59] LABS: Anisocytosis Slight; HCT 27.3 % (34.0-46.0); Hypochromasia Slight; MCH 26.4 pg (25.0-35.0); MCHC 32.1 g/dL (31.0-37.0); MCV 82.1 fL (80.0-100.0); Mean Platelet Volume 7.3; Platelet Count 296 k/uL (150-450); RBC 3.33 m/uL (3.80-5.40); RDW 16.4 % (11.5-15.5); WBC 9.1 k/uL (3.8-10.6)
[2019-11-25 08:04] LABS: HGB 8.8 gm/dL (11.4-16.0)
[2019-11-25 08:07] LABS: ALT 24 U/L (4-34); AST 20 U/L (14-36); African American GFR (CKD) >90 (>60 ml/min/1.73 sqM); Albumin 2.7 g/dL (3.5-5.0); Alkaline Phosphatase 27 U/L (38-126); Anion Gap 5 mmol/L; Blood Urea Nitrogen 25 mg/dL (7-17); Calcium 8.5 mg/dL (8.4-10.2); Carbon Dioxide 20 mmol/L (22-30); Chloride 111 mmol/L (98-107); Glucose 121 mg/dL (74-99); Non-African American GFR(CKD) 83 (>60 ml/min/1.73 sqM); Potassium 5.2 mmol/L (3.5-5.1); Sodium 136 mmol/L (137-145); Total Bilirubin 0.2 mg/dL (0.2-1.3); Total Protein 4.9 g/dL (6.3-8.2)
[2019-11-25] MEDS: CHOLESTYRAMINE (WITH SUGAR) 4 GM PACKET PO SCH ×2 (09:09→17:00)
[2019-11-25] MEDS: SODIUM CHLORIDE 0.9% 1,000 ML IV SCH (09:16)
[2019-11-25 12:02] LABS: Glucose,Whole Blood 174 mg/dL (75-99)
[2019-11-25] MEDS: CEFEPIME 2 GM in SODIUM CHLORIDE 0.9% 100 ML IVPB SCH ×2 (12:28→20:53)
--- NOTE | 2019-11-25 13:33 | PN ---
PROGRESS NOTE DATE OF SERVICE: 11/25/2019 REASON FOR FOLLOWUP: 1. Left heel wound with secondary cellulitis. 2. Right foot second toe dorsal wound. INTERVAL HISTORY: The patient is currently afebrile. She has been breathing comfortably. The patient denies having any chest pain. No shortness of breath or cough. No nausea. No vomiting. No abdominal pain or any worsening pain to the left heel area. PHYSICAL EXAMINATION: Blood pressure 164/81 with a pulse of 80, temperature 98.1. She is 92% on room air. General description is an elderly female lying in bed in no distress. RESPIRATORY SYSTEM: Unlabored breathing. Clear to auscultation anteriorly. HEART: S1, S2. Regular rate and rhythm. ABDOMEN: Soft. No tenderness. Left heel did have slough tissue and the surrounding redness has improved. Right second toe dorsal wound with minimal swelling. No significant redness. LABS: Hemoglobin is 8.9, white count 9.1. Wound culture now showing a gram-negative bacilli. Blood culture has been negative. DIAGNOSTIC IMPRESSION AND PLAN: 1. Patient with left heel wound with secondary cellulitis. Culture with gram- negative. Antibiotic will be adjusted to cefepime 2 grams q.12. Local wound care with Santyl. 2. Patient presented to the hospital with diarrhea. Stool for C difficile has been requested, not collected. Continue with symptomatic treatment with Questran. MMODL / IJN: [id number] /
--- NOTE | 2019-11-25 14:12 | P.PN ---
Subjective 64-year-old the vianey female came in because of nonhealing ulcer in the left Calcaneus along with severe cellulitis and probably infected hardware. Patient had an ankle fracture which was repaired in [facility] subsequently has to do reconstructive surgery and had an infected hardware because of which the the hardware was removed and antibiotic beads were placed. Patient started having redness nonhealing ulcer the workup of the weeks ago which is much worse since couple days because of which patient came to ER patient denied any fever chills patient has significant redness swelling of the entire right leg most of the swelling is extending up to the mid thigh area. And redness extending up to the right knee. With a stage II calcaneal ulcer without any significant drainage. Patient is on vancomycin may need gram-negative coverage as well as infectious disease was consulted patient does have diabetes patient has lymphedema extending diabetic foot ulcer and cellulitis because of which patient will require anaerobic and gram-negative coverage as well. Wound cultures will be obtained. Patient is on torsemide patient had normal ejection fraction the past that revealed her previous chart as per my dictation the past patient doesn't have any history of congestive heart failure. Patient never had any fluid in the lungs. Patient has renal dysfunction because of the diuretic therapy which is being held. Patient will be started on IV fluids gently with close monitoring for any pulmonary edema. 11/24/2019 Her cellulitis is bit better today morning cultures are showing gram-negative bacilli, patient is on Unasyn and vancomycin. 11/25/2019 Patient is only on cefepime at this time. Patient is comparing of headache was started on Fioricet patient also such that have gone down although patient doesn't have any crackles or G we'll obtain a chest x-ray make sure patient doesn't have any pulmonary edema and so patient need to be started on diuretics kidney function did improve by holding the diuretics and IV fluids IV fluids were discontinued at this time. Constitutional: Denied any fatigue denied any fever. Cardio vascular: denied any chest pain, palpitations Gastrointestinal denied any nausea vomiting Pulmonary: Denied any shortness of breath cough Neurologic denied any new focal deficits All inpatient medications were reviewed and appropriate changes in these medications as dictated in the interval history and assessment and plan. Objective - Vital Signs Vital signs: Vital Signs Temp 98.1 F 11/25/19 05:53 Pulse 80 11/25/19 05:53 Resp 19 11/25/19 05:53 BP 164/81 11/25/19 05:53 Pulse Ox 92 L 11/25/19 05:53 Intake & Output 11/24/19 11/25/19 11/25/19 18:59 06:59 18:59 Intake Total 1100 Balance 1100 Weight 84.822 kg Intake: Oral 1100 Other: Voiding Method Bedpan # Voids 1 3 3 # Bowel Movements 1 1 - Exam PHYSICAL EXAMINATION: GENERAL: The patient is alert and oriented x3, not in any acute distress. Obese HEENT: Pupils are round and equally reacting to light. EOMI. No scleral icterus. No conjunctival pallor. Normocephalic, atraumatic. No pharyngeal erythema. No thyromegaly. CARDIOVASCULAR: S1 and S2 present. No murmurs, rubs, or gallops. PULMONARY: Chest is clear to auscultation, no wheezing or crackles. ABDOMEN: Soft, nontender, nondistended, normoactive bowel sounds. No palpable organomegaly. MUSCULOSKELETAL: No joint swelling or deformity. EXTREMITIES: No cyanosis, clubbing, or pedal edema. NEUROLOGICAL: Gross neurological examination did not reveal any focal deficits. SKIN: Cellulitis and ulcer as described above - Labs CBC & Chem 7: 11/25/19 07:26 11/25/19 07:26 Labs: Abnormal Lab Results - Last 24 Hours (Table) 11/24/19 11/24/19 11/25/19 Range/Units 16:38 21:25 06:54 RBC (3.80-5.40) m/uL Hgb (11.4-16.0) gm/dL Hct (34.0-46.0) % RDW (11.5-15.5) % Sodium (137-145) mmol/L Potassium (3.5-5.1) mmol/L Chloride (98-107) mmol/L Carbon Dioxide (22-30) mmol/L BUN (7-17) mg/dL Glucose (74-99) mg/dL POC Glucose (mg/dL) 161 H 182 H 141 H (75-99) mg/dL Alkaline Phosphatase (38-126) U/L Total Protein (6.3-8.2) g/dL Albumin (3.5-5.0) g/dL 11/25/19 11/25/19 11/25/19 Range/Units 07:26 07:26 11:56 RBC 3.33 L (3.80-5.40) m/uL Hgb 8.8 L D (11.4-16.0) gm/dL Hct 27.3 L (34.0-46.0) % RDW 16.4 H (11.5-15.5) % Sodium 136 L (137-145) mmol/L Potassium 5.2 H (3.5-5.1) mmol/L Chloride 111 H (98-107) mmol/L Carbon Dioxide 20 L (22-30) mmol/L BUN 25 H (7-17) mg/dL Glucose 121 H (74-99) mg/dL POC Glucose (mg/dL) 174 H (75-99) mg/dL Alkaline Phosphatase 27 L (38-126) U/L Total Protein 4.9 L (6.3-8.2) g/dL Albumin 2.7 L (3.5-5.0) g/dL Microbiology - Last 24 Hours (Table) 11/23/19 04:45 Blood Culture - Preliminary Blood No Growth after 48 hours 11/23/19 05:00 Blood Culture - Preliminary Blood No Growth after 48 hours 11/23/19 06:25 Urine Culture - Preliminary Urine,Voided Gram Neg Bacilli 11/23/19 11:30 Gram Stain - Preliminary Foot - Left Wound Culture - Preliminary Gram Neg Bacilli Assessment and Plan Plan: Diabetic foot ulcer with the significant cellulitis patient on vancomycin patient will be started on anaerobic and gram-negative coverage with Unasyn wound cultures are positive for gram-negative bacilli . Because of significant issues with her hardware in the left ankle patient probably need to be transferred back to [facility] with she has her orthopedic surgeon. There is evidence of possible colitis as per the x-ray. -Left calcaneal stage II nonhealing ulcers -Type 2 diabetes mellitus patient will be resumed on home regimen along with the sliding scale insulin -Possibly of mild acute renal failure possibly of chronic kidney disease stage II from diabetic nephropathy neck acute renal failure is secondary to prerenal azotemia excessive diuretic therapy. Diuretics are being held that need to be started back at a lower dose if she goes into pulmonary edema chest x-ray will be obtained because of above-mentioned reasons. If chest x-ray shows pulmonary edema patient was started on 20 IV twice a day of Lasix. As of now, will hold off diuretics as well as IV fluids -Leukocytosis due to assessment #1 -Coronary artery disease -Hyperlipidemia -DVT prophylaxis with subcutaneous heparin and will also need GI prophylaxis with Pepcid
--- NOTE | 2019-11-25 14:35 | XR ---
EXAMINATION TYPE: XR chest 1V DATE OF EXAM: 11/25/2019 COMPARISON: 07/01/2019 HISTORY: Short of breath TECHNIQUE: FINDINGS: There is elevation of the right diaphragm. There is mild pulmonary congestion. Heart is enl arged. IMPRESSION: There is evidence for minimal heart failure that is mostly cleared compared to last exam. Right basilar atelectasis unchanged.
[2019-11-25] MEDS: BUTALB/APAP/CAFF 50-325-40MG TAB PO PRN (15:24)
[2019-11-25 16:51] LABS: Glucose,Whole Blood 247 mg/dL (75-99)
[2019-11-25] MEDS ORDERED: VANCOMYCIN 1,250 MG in SODIUM CHLORIDE 0.9% 250 ML IVPB SCH (18:00)
[2019-11-25] MEDS: ONDANSETRON 4 MG/2 ML VIAL IVP PRN (18:09)
[2019-11-25 20:34] LABS: Glucose,Whole Blood 222 mg/dL (75-99)
[2019-11-25] MEDS: ATORVASTATIN 40 MG TAB PO SCH (20:52)
[2019-11-26] MEDS: HEPARIN SODIUM,PORCINE 5,000 UNIT/ML 1 ML VIAL SQ SCH ×4 (00:17→22:04)
[2019-11-26] MEDS: HYDROcodone/APAP 7.5-325MG 1 EACH TAB PO PRN ×4 (01:36→19:47)
[2019-11-26 07:00] LABS: Glucose,Whole Blood 142 mg/dL (75-99)
[2019-11-26] MEDS: ASPIRIN 81 MG PO SCH (08:16)
[2019-11-26] MEDS: LINAGLIPTIN 5 MG TABLET PO SCH (08:17)
[2019-11-26] MEDS: ISOSORBIDE MONONITRATE ER 30 MG TAB.ER.24H PO SCH (08:17)
[2019-11-26] MEDS: FAMOTIDINE 20 MG TAB PO SCH ×2 (08:17→20:43)
[2019-11-26] MEDS: SENNOSIDES 8.6 MG TAB PO SCH (08:17)
[2019-11-26] MEDS: CHOLESTYRAMINE (WITH SUGAR) 4 GM PACKET PO SCH ×2 (08:17→16:37)
[2019-11-26] MEDS: GABAPENTIN 300 MG CAP PO SCH ×3 (08:17→20:43)
[2019-11-26] MEDS: COLLAGENASE 250 UNIT/GM OINTMENT 30 GM TUBE TOPICAL SCH (08:18)
[2019-11-26] MEDS: CEFEPIME 2 GM in SODIUM CHLORIDE 0.9% 100 ML IVPB SCH ×2 (08:18→20:44)
[2019-11-26] MEDS: INSULIN ASPART (NovoLOG) 100 UNIT/ML VIAL SQ SCH ×4 (08:18→20:43)
[2019-11-26 08:37] LABS: Anisocytosis Slight; HCT 27.2 % (34.0-46.0); HGB 8.8 gm/dL (11.4-16.0); Hypochromasia Slight; MCH 26.4 pg (25.0-35.0); MCHC 32.4 g/dL (31.0-37.0); MCV 81.4 fL (80.0-100.0); Mean Platelet Volume 7.4; Platelet Count 289 k/uL (150-450); RBC 3.34 m/uL (3.80-5.40); RDW 16.5 % (11.5-15.5); WBC 10.5 k/uL (3.8-10.6)
[2019-11-26 08:47] LABS: African American GFR (CKD) >90 (>60 ml/min/1.73 sqM); Anion Gap 3 mmol/L; Blood Urea Nitrogen 29 mg/dL (7-17); Calcium 8.8 mg/dL (8.4-10.2); Carbon Dioxide 22 mmol/L (22-30); Chloride 111 mmol/L (98-107); Glucose 128 mg/dL (74-99); Non-African American GFR(CKD) 85 (>60 ml/min/1.73 sqM); Potassium 5.5 mmol/L (3.5-5.1); Sodium 136 mmol/L (137-145)
[2019-11-26] MEDS: COLCHICINE 0.6 MG EACH PO SCH ×2 (09:48→20:44)
[2019-11-26] MEDS: BUTALB/APAP/CAFF 50-325-40MG TAB PO PRN ×2 (10:35→16:38)
[2019-11-26 12:03] LABS: Glucose,Whole Blood 211 mg/dL (75-99)
--- NOTE | 2019-11-26 12:12 | P.PN ---
Subjective Patient resting comfortably in chair feet elevated. She has infectious disease consult and also wound care micrology came back with enterobacter cloacae she is currently and staph aureus on cefepime 2 g IV every 12 hours. She would like to continue with wound care at home she reports family is available to help with the care of needed. Potassium elevated to 5.5 order in for a return for BMP. Blood pressure elevated lisinopril started Objective - Vital Signs Vital signs: Vital Signs Temp 97.4 F L 11/26/19 05:34 Pulse 83 11/26/19 05:34 Resp 20 11/26/19 05:34 BP 160/72 11/26/19 05:34 Pulse Ox 94 L 11/26/19 05:34 Intake & Output 11/25/19 11/26/19 11/26/19 18:59 06:59 18:59 Intake Total 400 Balance 400 Intake: Oral 400 Other: Voiding Method Bedpan Bedpan # Voids 3 1 - Constitutional General appearance: Present: mild distress - EENT Eyes: Present: PERRLA - Respiratory Respiratory: bilateral: CTA - Gastrointestinal General gastrointestinal: Present: normal bowel sounds, soft - Integumentary Integumentary Comment(s): Bilateral dressings in place on lower extremities dry and intact reviewed photos of heel - Neurologic Neurologic: Present: CNII-XII intact - Psychiatric Psychiatric: Present: A&O x's 3, appropriate affect, intact judgment & insight - Labs CBC & Chem 7: 11/26/19 08:02 11/26/19 08:02 Labs: Abnormal Lab Results - Last 24 Hours (Table) 11/25/19 11/25/19 11/26/19 Range/Units 16:42 20:07 06:56 RBC (3.80-5.40) m/uL Hgb (11.4-16.0) gm/dL Hct (34.0-46.0) % RDW (11.5-15.5) % Sodium (137-145) mmol/L Potassium (3.5-5.1) mmol/L Chloride (98-107) mmol/L BUN (7-17) mg/dL Glucose (74-99) mg/dL POC Glucose (mg/dL) 247 H 222 H 142 H (75-99) mg/dL 11/26/19 11/26/19 11/26/19 Range/Units 08:02 08:02 11:57 RBC 3.34 L (3.80-5.40) m/uL Hgb 8.8 L (11.4-16.0) gm/dL Hct 27.2 L (34.0-46.0) % RDW 16.5 H (11.5-15.5) % Sodium 136 L (137-145) mmol/L Potassium 5.5 H (3.5-5.1) mmol/L Chloride 111 H (98-107) mmol/L BUN 29 H (7-17) mg/dL Glucose 128 H (74-99) mg/dL POC Glucose (mg/dL) 211 H (75-99) mg/dL Microbiology - Last 24 Hours (Table) 11/23/19 06:25 Urine Culture - Final Urine,Voided Enterobacter cloacae 11/23/19 04:45 Blood Culture - Preliminary Blood No Growth after 72 hours 11/23/19 05:00 Blood Culture - Preliminary Blood No Growth after 72 hours 11/23/19 11:30 Gram Stain - Final Foot - Left Wound Culture - Final Enterobacter cloacae Staphylococcus aureus - Imaging and Cardiology Chest x-ray: report reviewed (mild heart failure improved) Assessment and Plan Plan: Assessment Diabetic foot ulcer with significant cellulitis culture reviewed on cefepime 2 g every 12 hours Left calcaneal stage II nonhealing ulcer Mild acute renal failure resolved Leukocytosis secondary to foot ulcer and cellulitis History of coronary artery disease History of hyperlipidemia Hypertension Hyperkalemia Plan Continue IV antibiotics per infectious disease Continue with wound care consultations Hypertension addressed with lisinopril BMP ordered will review results and update plan of care
[2019-11-26 13:01] LABS: African American GFR (CKD) >90 (>60 ml/min/1.73 sqM); Anion Gap 4 mmol/L; Blood Urea Nitrogen 34 mg/dL (7-17); Calcium 8.9 mg/dL (8.4-10.2); Carbon Dioxide 21 mmol/L (22-30); Chloride 108 mmol/L (98-107); Glucose 155 mg/dL (74-99); Non-African American GFR(CKD) 81 (>60 ml/min/1.73 sqM); Potassium 5.1 mmol/L (3.5-5.1); Sodium 133 mmol/L (137-145)
[2019-11-26 16:55] LABS: Glucose,Whole Blood 172 mg/dL (75-99)
[2019-11-26 20:08] LABS: Glucose,Whole Blood 303 mg/dL (75-99)
[2019-11-26] MEDS: MELATONIN 5 MG TABLET PO SCH (20:43)
[2019-11-26] MEDS: ATORVASTATIN 40 MG TAB PO SCH (20:43)
[2019-11-26] MEDS: NYSTATIN 100,000 UNIT/GM OINT 30 GM TUBE TOPICAL SCH (20:46)
[2019-11-27] MEDS: HYDROcodone/APAP 7.5-325MG 1 EACH TAB PO PRN ×3 (01:38→19:43)
--- NOTE | 2019-11-27 06:00 | PN ---
PROGRESS NOTE DATE OF SERVICE: 11/26/2019 REASON FOR FOLLOWUP: Left heel wound cellulitis. INTERVAL HISTORY: The patient is currently afebrile. She has been breathing comfortably. Denies having any chest pain or any cough. No nausea, vomiting, or any worsening pain to the left heel area. PHYSICAL EXAMINATION: Blood pressure is 140/67 with a pulse of 77, temperature 97.5. She is 97% on room air. General description is an elderly female lying in bed in no distress. RESPIRATORY SYSTEM: Unlabored breathing, clear to auscultation anteriorly. HEART: S1, S2. Regular rate and rhythm. ABDOMEN: Soft, no tenderness. Left heel wound is currently dressed up. No obvious draining on the dressing. LABS: BUN of 34, creatinine 0.77. Wound culture reveals Enterobacter and MSSA. DIAGNOSTIC IMPRESSION AND PLAN: Patient with left heel wound with secondary cellulitis. Culture has been Enterobacter and MSSA. Patient is currently on cefepime to continue. Hopefully finish therapy with oral antibiotic on discharge. Local care to continue with Santyl. Monitoring clinical course closely. MMODL / IJN: [id number] /
[2019-11-27 07:52] LABS: Glucose,Whole Blood 142 mg/dL (75-99)
[2019-11-27] MEDS: INSULIN ASPART (NovoLOG) 100 UNIT/ML VIAL SQ SCH ×4 (08:15→21:29)
[2019-11-27] MEDS: ISOSORBIDE MONONITRATE ER 30 MG TAB.ER.24H PO SCH (08:17)
[2019-11-27] MEDS: LINAGLIPTIN 5 MG TABLET PO SCH (08:17)
[2019-11-27] MEDS: HEPARIN SODIUM,PORCINE 5,000 UNIT/ML 1 ML VIAL SQ SCH ×2 (08:17→15:18)
[2019-11-27] MEDS: SENNOSIDES 8.6 MG TAB PO SCH (08:17)
[2019-11-27] MEDS: FAMOTIDINE 20 MG TAB PO SCH ×2 (08:17→21:29)
[2019-11-27] MEDS: NYSTATIN 100,000 UNIT/GM OINT 30 GM TUBE TOPICAL SCH ×2 (08:17→21:30)
[2019-11-27] MEDS: ASPIRIN 81 MG PO SCH (08:17)
[2019-11-27] MEDS: COLCHICINE 0.6 MG EACH PO SCH ×2 (08:18→21:29)
[2019-11-27] MEDS: GABAPENTIN 300 MG CAP PO SCH ×3 (08:18→21:29)
[2019-11-27] MEDS: CEFEPIME 2 GM in SODIUM CHLORIDE 0.9% 100 ML IVPB SCH ×2 (08:18→21:28)
[2019-11-27] MEDS: COLLAGENASE 250 UNIT/GM OINTMENT 30 GM TUBE TOPICAL SCH (08:19)
[2019-11-27] MEDS ORDERED: LISINOPRIL 10 MG TAB PO SCH (09:00)
[2019-11-27] MEDS: CHOLESTYRAMINE (WITH SUGAR) 4 GM PACKET PO SCH ×2 (10:11→17:08)
--- NOTE | 2019-11-27 11:05 | P.PN ---
Subjective Patient in bed resting comfortably with eyes closed arouses easily to verbal command, she reports having a headache approximately 3 times a day she has ecchymosis to the left upper forehead unsure of falling, CT ordered. She is requested to stay in the hospital to see feels 100% however she has declined going to rehab to build strength and would like homecare, OT PT and homecare RN discussed and ordered. Infectious disease on the case awaiting recommendation for oral antibiotics for discharge. Objective - Vital Signs Vital signs: Vital Signs Temp 97.7 F 11/27/19 07:00 Pulse 75 11/27/19 07:00 Resp 20 11/27/19 07:00 BP 124/68 11/27/19 07:00 Pulse Ox 98 11/27/19 07:00 Intake & Output 11/26/19 11/27/19 11/27/19 18:59 06:59 18:59 Intake Total 100 400 Balance 100 400 Intake: IV 100 Cefepime 2 gm In Sodium 100 Chloride 0.9% 100 ml @ 200 mls/hr IVPB Q12HR [facility] Rx#:[id number] Oral 400 Other: Voiding Method Bedpan Bedpan # Voids 1 3 1 # Bowel Movements 1 1 - Constitutional General appearance: Present: mild distress - Neck Neck: Present: normal ROM - Respiratory Respiratory: bilateral: CTA - Cardiovascular Rhythm: regular Heart sounds: normal: S1, S2 - Gastrointestinal General gastrointestinal: Present: normal bowel sounds, soft - Integumentary Integumentary Comment(s): Ecchymosis noted on forearms and left forehead - Neurologic Neurologic: Present: CNII-XII intact - Musculoskeletal Musculoskeletal: Present: generalized weakness - Psychiatric Psychiatric: Present: A&O x's 3 - Labs CBC & Chem 7: 11/26/19 08:02 11/26/19 12:31 Labs: Abnormal Lab Results - Last 24 Hours (Table) 11/26/19 11/26/19 11/26/19 Range/Units 11:57 12:31 16:53 Sodium 133 L (137-145) mmol/L Chloride 108 H (98-107) mmol/L Carbon Dioxide 21 L (22-30) mmol/L BUN 34 H (7-17) mg/dL Glucose 155 H (74-99) mg/dL POC Glucose (mg/dL) 211 H 172 H (75-99) mg/dL 11/26/19 11/27/19 Range/Units 20:06 07:17 Sodium (137-145) mmol/L Chloride (98-107) mmol/L Carbon Dioxide (22-30) mmol/L BUN (7-17) mg/dL Glucose (74-99) mg/dL POC Glucose (mg/dL) 303 H 142 H (75-99) mg/dL Microbiology - Last 24 Hours (Table) 11/23/19 04:45 Blood Culture - Preliminary Blood No Growth after 96 hours 11/23/19 05:00 Blood Culture - Preliminary Blood No Growth after 96 hours 11/23/19 06:25 Urine Culture - Final Urine,Voided Enterobacter cloacae Assessment and Plan Plan: Assessment: Diabetic foot ulcer with significant cellulitis culture reviewed on cefepime 2 g every 12 hours Left calcaneal stage II nonhealing ulcer Mild acute renal failure resolved Leukocytosis secondary to foot ulcer and cellulitis History of coronary artery disease History of hyperlipidemia Hypertension Hyperkalemia corrected Headache possible trauma Plan: Continue IV antibiotics per ID awaiting recommendations for oral antibiotics CT of brain for headaches Continue consultation with PT OT infectious disease and wound care
--- NOTE | 2019-11-27 12:03 | CT ---
EXAMINATION TYPE: CT brain wo con DATE OF EXAM: 11/27/2019 COMPARISON: 06/29/2019 HISTORY: 64-year-old female Headache with ecchymosis left forehead TECHNIQUE: Examination was done in axial plane without intravenous contrast. Coronal and sagittal r econstructions performed. CT DLP: 1074.2 mGycm Automated exposure control for dose reduction was used. FINDINGS: There is no evidence of acute intracranial hemorrhage, acute ischemic changes, mass, mass-effect, or extra-axial fluid collection. There is no effacement of cerebral sulci or basal subarachnoid cister ns. There is no hydrocephalus. There is no midline shift. Kessler-white matter distinction is preserv ed. Moderate patchy white matter hypodensities both cerebral hemispheres. Normal variant persistent CSP. No calvarial fracture. Slight leftward nasal septal deviation. Paranasal sinuses appear well pneumati zed. Mastoid air cells well pneumatized. IMPRESSION: Patchy changes of chronic small vessel ischemic disease. No acute intracranial abnormality seen.
[2019-11-27 12:04] LABS: Glucose,Whole Blood 184 mg/dL (75-99)
[2019-11-27] MEDS: BUTALB/APAP/CAFF 50-325-40MG TAB PO PRN (15:39)
[2019-11-27 16:54] LABS: Glucose,Whole Blood 210 mg/dL (75-99)
--- NOTE | 2019-11-27 17:08 | PN ---
PROGRESS NOTE DATE OF SERVICE: 11/27/2019. REASON FOR FOLLOWUP: Left heel wound with secondary cellulitis. INTERVAL HISTORY: The patient is currently afebrile, has been complaining of pain to the left heel area. The patient denies having any chest pain, shortness of breath or cough. No abdominal pain or diarrhea. PHYSICAL EXAMINATION: Blood pressure 115/63 with a pulse of 91, temperature 98.7. She is 95% on room air. General description is an elderly female lying in bed in no distress. RESPIRATORY SYSTEM: Unlabored breathing. Clear to auscultation anteriorly. HEART: S1, S2. Regular rate and rhythm. ABDOMEN: Soft. No tenderness. Left heel with slough tissue. Surrounding redness has improved. No drainage. LABS: Creatinine 0.7. DIAGNOSTIC IMPRESSION AND PLAN: Patient with a left heel wound with secondary cellulitis. Culture positive for Enterobacter and MSSA. Patient to continue with cefepime. Local care to continue with Santyl followed by moist dressing and heel protectors. To finish therapy with oral antibiotics. Continue with supportive care. MMODL / IJN: [id number] /
[2019-11-27 20:14] LABS: Glucose,Whole Blood 245 mg/dL (75-99)
[2019-11-27] MEDS: ATORVASTATIN 40 MG TAB PO SCH (21:28)
[2019-11-27] MEDS: MELATONIN 5 MG TABLET PO SCH (21:29)
[2019-11-28] MEDS: HEPARIN SODIUM,PORCINE 5,000 UNIT/ML 1 ML VIAL SQ SCH ×4 (00:24→15:43)
[2019-11-28] MEDS: HYDROcodone/APAP 7.5-325MG 1 EACH TAB PO PRN ×4 (04:44→22:15)
[2019-11-28 06:54] LABS: Glucose,Whole Blood 156 mg/dL (75-99)
[2019-11-28] MEDS: INSULIN ASPART (NovoLOG) 100 UNIT/ML VIAL SQ SCH ×4 (07:26→20:36)
[2019-11-28] MEDS: ISOSORBIDE MONONITRATE ER 30 MG TAB.ER.24H PO SCH (07:27)
[2019-11-28] MEDS: LINAGLIPTIN 5 MG TABLET PO SCH (07:27)
[2019-11-28] MEDS: ASPIRIN 81 MG PO SCH (07:27)
[2019-11-28] MEDS: CEFEPIME 2 GM in SODIUM CHLORIDE 0.9% 100 ML IVPB SCH (07:27)
[2019-11-28] MEDS: FAMOTIDINE 20 MG TAB PO SCH ×2 (07:27→20:35)
[2019-11-28] MEDS: NYSTATIN 100,000 UNIT/GM OINT 30 GM TUBE TOPICAL SCH ×2 (07:28→20:36)
[2019-11-28] MEDS: LISINOPRIL 5 MG TAB PO SCH (07:28)
[2019-11-28] MEDS: SENNOSIDES 8.6 MG TAB PO SCH (07:28)
[2019-11-28] MEDS: COLLAGENASE 250 UNIT/GM OINTMENT 30 GM TUBE TOPICAL SCH (07:28)
[2019-11-28] MEDS: COLCHICINE 0.6 MG EACH PO SCH ×2 (07:37→20:41)
[2019-11-28] MEDS: GABAPENTIN 300 MG CAP PO SCH ×3 (07:48→20:38)
[2019-11-28 09:08] LABS: Anisocytosis Slight; Basophils # (A) 0.1 k/uL (0-0.2); Basophils % (A) 1 %; Eosinophils # (A) 0.1 k/uL (0-0.7); Eosinophils % (A) 1 %; HCT 27.5 % (34.0-46.0); HGB 8.7 gm/dL (11.4-16.0); Hypochromasia Slight; Lymphocytes # (A) 1.9 k/uL (1.0-4.8); Lymphocytes % (A) 20 %; MCH 26.5 pg (25.0-35.0); MCHC 31.8 g/dL (31.0-37.0); MCV 83.2 fL (80.0-100.0); Mean Platelet Volume 7.3; Monocytes # (A) 0.7 k/uL (0-1.0); Monocytes % (A) 8 %; Neutrophils # (A) 6.6 k/uL (1.3-7.7); Neutrophils % (A) 69 %; Platelet Count 253 k/uL (150-450); RDW 17.7 % (11.5-15.5); WBC 9.5 k/uL (3.8-10.6)
[2019-11-28 09:19] LABS: African American GFR (CKD) >90 (>60 ml/min/1.73 sqM); Anion Gap 7 mmol/L; Blood Urea Nitrogen 30 mg/dL (7-17); Calcium 8.8 mg/dL (8.4-10.2); Carbon Dioxide 19 mmol/L (22-30); Chloride 109 mmol/L (98-107); Glucose 167 mg/dL (74-99); Non-African American GFR(CKD) >90 (>60 ml/min/1.73 sqM); Potassium 4.9 mmol/L (3.5-5.1); Sodium 135 mmol/L (137-145)
[2019-11-28] MEDS: CHOLESTYRAMINE (WITH SUGAR) 4 GM PACKET PO SCH ×2 (10:59→16:59)
--- NOTE | 2019-11-28 12:16 | P.PN ---
Subjective Patient clear for discharge per infectious disease will switch IV antibiotics to oral Cipro 500 mg every 12 hours for 10 days and Keflex 500 mg every 8 hours for 10 days of will will discharge home tomorrow if tolerates orals has arrangements for home care with family Objective - Vital Signs Vital signs: Vital Signs Temp 98.3 F 11/28/19 05:00 Pulse 85 11/28/19 05:00 Resp 20 11/28/19 05:00 BP 145/78 11/28/19 05:00 Pulse Ox 96 11/28/19 05:00 Intake & Output 11/27/19 11/28/19 11/28/19 18:59 06:59 18:59 Intake Total 300 Balance 300 Intake: Oral 300 Other: Voiding Method Bedpan Bedpan Bedpan # Voids 2 5 1 - Constitutional General appearance: Present: mild distress - EENT Eyes: Present: PERRLA - Neck Neck: Present: normal ROM - Respiratory Respiratory: bilateral: CTA - Cardiovascular Rhythm: regular Heart sounds: normal: S1, S2 - Gastrointestinal General gastrointestinal: Present: normal bowel sounds, soft - Integumentary Integumentary Comment(s): Ecchymosis in upper extremities pressure ulcer and wounds on left heel and right toe dressings are dry and intact no drainage - Neurologic Neurologic: Present: CNII-XII intact - Musculoskeletal Musculoskeletal: Present: generalized weakness - Psychiatric Psychiatric: Present: A&O x's 3, appropriate affect - Labs CBC & Chem 7: 11/28/19 08:23 11/28/19 08:23 Labs: Abnormal Lab Results - Last 24 Hours (Table) 11/27/19 11/27/19 11/28/19 Range/Units 16:46 20:12 06:49 RBC (3.80-5.40) m/uL Hgb (11.4-16.0) gm/dL Hct (34.0-46.0) % RDW (11.5-15.5) % Sodium (137-145) mmol/L Chloride (98-107) mmol/L Carbon Dioxide (22-30) mmol/L BUN (7-17) mg/dL Glucose (74-99) mg/dL POC Glucose (mg/dL) 210 H 245 H 156 H (75-99) mg/dL 11/28/19 11/28/19 Range/Units 08:23 08:23 RBC 3.30 L (3.80-5.40) m/uL Hgb 8.7 L (11.4-16.0) gm/dL Hct 27.5 L (34.0-46.0) % RDW 17.7 H (11.5-15.5) % Sodium 135 L (137-145) mmol/L Chloride 109 H (98-107) mmol/L Carbon Dioxide 19 L (22-30) mmol/L BUN 30 H (7-17) mg/dL Glucose 167 H (74-99) mg/dL POC Glucose (mg/dL) (75-99) mg/dL Microbiology - Last 24 Hours (Table) 11/23/19 04:45 Blood Culture - Preliminary Blood No Growth after 120 hours 11/23/19 05:00 Blood Culture - Preliminary Blood No Growth after 120 hours Assessment and Plan Plan: Assessment and plan diabetic foot ulcer with cellulitis has been changed to oral antibiotics and will plan for discharge home with her family caring for at home if she tolerates orals today hypertension has restarted her enalapril dose diabetes type 2 and will be on home regimen stage II left calcaneal nonhealing ulcer continue wound care acute renal failure mild improving history coronary artery disease hyperlipidemia headache CT was negative
[2019-11-28 12:23] LABS: Glucose,Whole Blood 219 mg/dL (75-99)
--- NOTE | 2019-11-28 12:31 | PN ---
PROGRESS NOTE DATE OF SERVICE: 11/28/2019 REASON FOR FOLLOWUP: Left heel infected wound. INTERVAL HISTORY: The patient is currently afebrile, has been breathing comfortably. Pain to the left heel is currently controlled after the heel pressure has been applied. He denies any chest pain. No cough. No abdominal pain and no diarrhea. PHYSICAL EXAMINATION: Blood pressure 145/78 with a pulse of 55, temperature 98.3, she is 96% on room air. General description is an elderly female, lying in bed in no distress. RESPIRATORY SYSTEM: Unlabored breathing, clear to auscultation anteriorly. HEART: S1, S2. Regular rate and rhythm. ABDOMEN: Soft, no tenderness. The left heel is dressed, no obvious drainage on the dressing. LABS: Hemoglobin 8.7, white count of 9.5, BUN of 30, creatinine 0.65. DIAGNOSTIC IMPRESSION AND PLAN: Patient with left heel infection. Wound culture reveals positive with intermittent MSSA or a superficial cellulitis, clinically not behaved as a deep infection in this patient who did not have any fever on presentation. The patient's antibiotic was switched over to Cipro and Keflex for about 10 days, local care to continue with Santyl, followed by moist dressing and heel protector and [facility]. MMODL / IJN: [id number] /
[2019-11-28] MEDS: BUTALB/APAP/CAFF 50-325-40MG TAB PO PRN ×2 (13:13→20:34)
[2019-11-28] MEDS ORDERED: NITROGLYCERIN SL TABS 0.4 MG TAB SUBLINGUAL PRN (15:25)
[2019-11-28] MEDS: CEPHALEXIN 500 MG CAP PO SCH ×2 (15:43→20:35)
[2019-11-28 16:16] LABS: Creatine Kinase MB 1.8 ng/mL (0.0-2.4); Troponin I 0.017 ng/mL (0.000-0.034)
[2019-11-28 17:40] LABS: Glucose,Whole Blood 177 mg/dL (75-99)
--- NOTE | 2019-11-28 17:54 | CT ---
EXAMINATION TYPE: CT chest angio for PE DATE OF EXAM: 11/28/2019 COMPARISON: None HISTORY: elevated d-dimer Chest pain CT DLP: 521.9 mGycm Automated exposure control for dose reduction was used. CONTRAST: Performed with IV Contrast, patient injected with 66cc mL of Isovue 370. There are 3-D post processed images. There is marked elevation of the right diaphragm. There is atelectasis right lung base. There is no m ediastinal adenopathy. There are no hilar masses. I see no filling defects in the pulmonary arteries. Thoracic aorta shows no evidence of aneurysm or dissection. There is coronary artery calcification. Heart size is normal. There is no pericardial effusion. There is no evidence of a pulmonary mass. The re are tiny scattered nodular densities measuring up to 5 mm in the right upper lobe. There is tiny s ubpleural nodules also in the left lung. The bony thorax appears intact. There is mild dextroscoliosi s. There is multilevel thoracic spondylotic changes. There is no significant compression deformity. U pper abdominal soft tissues are intact. IMPRESSION: Atelectasis right lung base with elevation of the right diaphragm could relate to diaphragm paralysis . No evidence of pulmonary embolism. Numerous tiny subpleural pulmonary nodules probably from inflamm atory disease. No suspicious pulmonary mass.
[2019-11-28 20:23] LABS: Glucose,Whole Blood 282 mg/dL (75-99)
[2019-11-28] MEDS: CIPROFLOXACIN HCL 500 MG TAB PO SCH (20:34)
[2019-11-28] MEDS: MELATONIN 5 MG TABLET PO SCH (20:35)
[2019-11-28] MEDS: ATORVASTATIN 40 MG TAB PO SCH (20:36)
[2019-11-29] MEDS: HEPARIN SODIUM,PORCINE 5,000 UNIT/ML 1 ML VIAL SQ SCH ×4 (00:26→23:31)
[2019-11-29] MEDS ORDERED: HYDROcodone/APAP 7.5-325MG 1 EACH TAB ONE (05:00)
[2019-11-29 07:05] LABS: Glucose,Whole Blood 155 mg/dL (75-99)
[2019-11-29] MEDS: CHOLESTYRAMINE (WITH SUGAR) 4 GM PACKET PO SCH ×2 (07:41→17:29)
[2019-11-29] MEDS: GABAPENTIN 300 MG CAP PO SCH ×3 (07:41→21:17)
[2019-11-29] MEDS: INSULIN ASPART (NovoLOG) 100 UNIT/ML VIAL SQ SCH ×4 (07:41→21:17)
[2019-11-29] MEDS: NYSTATIN 100,000 UNIT/GM OINT 30 GM TUBE TOPICAL SCH ×2 (07:42→21:16)
[2019-11-29] MEDS: COLCHICINE 0.6 MG EACH PO SCH ×2 (07:42→21:17)
[2019-11-29] MEDS: CEPHALEXIN 500 MG CAP PO SCH ×3 (07:42→21:16)
[2019-11-29] MEDS: CIPROFLOXACIN HCL 500 MG TAB PO SCH ×2 (07:42→21:16)
[2019-11-29] MEDS: FAMOTIDINE 20 MG TAB PO SCH ×2 (07:42→21:17)
[2019-11-29] MEDS: ASPIRIN 81 MG PO SCH (07:42)
[2019-11-29] MEDS: LINAGLIPTIN 5 MG TABLET PO SCH (07:42)
[2019-11-29] MEDS: COLLAGENASE 250 UNIT/GM OINTMENT 30 GM TUBE TOPICAL SCH (07:43)
[2019-11-29] MEDS: LISINOPRIL 5 MG TAB PO SCH (07:49)
[2019-11-29] MEDS: ISOSORBIDE MONONITRATE ER 30 MG TAB.ER.24H PO SCH (07:49)
[2019-11-29] MEDS: SENNOSIDES 8.6 MG TAB PO SCH (07:53)
[2019-11-29] MEDS: BUTALB/APAP/CAFF 50-325-40MG TAB PO PRN ×3 (07:54→21:24)
[2019-11-29] MEDS: HYDROcodone/APAP 7.5-325MG 1 EACH TAB PO PRN ×3 (11:24→23:28)
[2019-11-29 11:33] LABS: Glucose,Whole Blood 199 mg/dL (75-99)
--- NOTE | 2019-11-29 11:34 | P.PN ---
Subjective Patient sitting up in chair states that she talked to her orthopedic surgeon and he is requesting that she has an evaluation from an career transition specialist before she goes home from the hospital. She states that she does not want to have PT in a rehabilitation center and has opted to go home with PT OT and wound care nurse in the home, she wants to be evaluated by PT in the hospital using crutches as she'll be using crutches in her home. She is tolerating oral antibiotics at this time and plan for discharge tomorrow. Objective - Vital Signs Vital signs: Vital Signs Temp 97.8 F 11/29/19 07:30 Pulse 76 11/29/19 07:30 Resp 16 11/29/19 07:30 BP 137/61 11/29/19 07:30 Pulse Ox 96 11/29/19 07:30 Intake & Output 11/28/19 11/29/19 11/29/19 18:59 06:59 18:59 Intake Total 400 Balance 400 Weight 84.822 kg Intake: Oral 400 Other: Voiding Method Bedpan Bedpan # Voids 3 2 # Bowel Movements 1 - Constitutional General appearance: Present: mild distress - EENT Eyes: Present: PERRLA - Neck Neck: Present: normal ROM - Respiratory Respiratory: bilateral: CTA - Cardiovascular Rhythm: regular Heart sounds: normal: S1, S2 - Gastrointestinal General gastrointestinal: Present: normal bowel sounds, soft - Integumentary Integumentary Comment(s): Ecchymosis bilateral upper extremities, left ankle wound bandage intact right foot bandage intact - Neurologic Neurologic: Present: CNII-XII intact - Psychiatric Psychiatric: Present: A&O x's 3, appropriate affect - Labs CBC & Chem 7: 11/28/19 08:23 11/28/19 08:23 Labs: Abnormal Lab Results - Last 24 Hours (Table) 11/28/19 11/28/19 11/28/19 Range/Units 12:19 15:36 17:38 D-Dimer 2.40 H (<0.60) mg/L FEU POC Glucose (mg/dL) 219 H 177 H (75-99) mg/dL 11/28/19 11/29/19 Range/Units 20:04 07:03 D-Dimer (<0.60) mg/L FEU POC Glucose (mg/dL) 282 H 155 H (75-99) mg/dL Microbiology - Last 24 Hours (Table) 11/23/19 04:45 Blood Culture - Final Blood No Growth after 144 hours 11/23/19 05:00 Blood Culture - Final Blood No Growth after 144 hours - Imaging and Cardiology CT scan - chest: report reviewed CT Scan - head: report reviewed Assessment and Plan Plan: Assessment: Diabetic foot ulcer with significant cellulitis oral antibiotic Left calcaneal stage II nonhealing ulcer Mild acute renal failure resolved Leukocytosis secondary to foot ulcer and cellulitis resolved History of coronary artery disease History of hyperlipidemia Hypertension Hyperkalemia corrected Headache improved Right chest pain resolved CT angiogram negative for PE Plan: Continue oral antibiotics Orthopedic consultation for left ankle pain Continue PT for evaluation of use of crutches for home Plan for discharge home tomorrow
--- NOTE | 2019-11-29 14:06 | PN ---
PROGRESS NOTE DATE OF SERVICE: 11/29/2019 REASON FOR FOLLOWUP: Left heel wound and cellulitis. INTERVAL HISTORY: The patient is currently afebrile. She has been breathing comfortably. Patient is complaining of more pain in the left heel wound area and wants the orthopedic to see her. Patient apparently has shared the images of her heel to her surgeons who suggested to seek an opinion from an orthopedic surgeon at this facility. The patient denies having any chest pain, no cough, no abdominal pain or diarrhea: PHYSICAL EXAMINATION: Blood pressure 137/61 with a pulse of 76, temperature 97.8, she is 96% on 2 L nasal cannula. General description is an elderly female, lying in bed in no distress. RESPIRATORY SYSTEM: Unlabored breathing, clear to auscultation anteriorly. HEART: S1, S2. Regular rate and rhythm. Left heel with dressing, with no obvious drainage on the dressing. LABS: No new labs have been obtained today. DIAGNOSTIC IMPRESSION AND PLAN: Patient with left heel wound with secondary cellulitis. Concern has been positive for MSSA Enterobacter. Patient was on cefepime, antibiotic has been switched to Keflex to continue for about 10 days. Local care with Sue and to follow up with her surgeon upon discharge. Continue supportive care. MMODL / IJN: [id number] /
--- NOTE | 2019-11-29 16:56 | P.CNOR ---
History of Present Illness - [facility] Consult date: 11/29/19 Consult reason: other (Left ankle pain) History of present illness: The patient is a 64-year-old female who presented to the hospital last week for left foot cellulitis and weakness. She has an extensive history of orthopedic surgery to her left ankle. Her original injury was last year where she tripped over her dog and dislocated her left ankle. She had an external fixator placed in January 2019. An ankle fusion was completed in March [address] Sorto at [facility]. The ankle was healing until she noticed a screw poking out of her skin on the anterior ankle. That screw was removed at the end of October. One of the incisions opened after the sutures were removed and she developed redness. She was placed on Keflex and developed diarrhea. Her diarrhea became so severe she was admitted to the hospital for further evaluation. She also noticed a open area on her heel that was very painful. The patient has been nonweightbearing with the use of crutches at home. Orthopedics was consulted due to the patient's request. The patient has spoken to Dr. Sorto's office and he wanted the ankle looked at by orthopedics. The patient is currently being managed by internal medicine and infectious disease. Wound care is on for care of the left heel pressure ulcer. She is currently on Keflex and Cipro. The patient is scheduled to be discharged tomorrow. Review of Systems Constitutional: Denies chills, Denies fever Cardiovascular: Denies chest pain, Denies shortness of breath Respiratory: Denies cough Gastrointestinal: Reports diarrhea, Denies abdominal pain, Denies nausea, Denies vomiting Musculoskeletal: left: ankle pain, ankle swelling, foot pain, foot stiffness, foot swelling Past Medical History Past Medical History: Coronary Artery Disease (CAD), Diabetes Mellitus, Hyperlipidemia, Osteoarthritis (OA), Renal Disease Additional Past Medical History / Comment(s): states back pain, current "creacked bone in left ankle wrapped with [place] wrap CURRENTLY USING CRUTCHES bro ke left ankle aug 26 2018. Last Myocardial Infarction Date:: 06/03/2019 History of Any Multi-Drug Resistant Organisms: None Reported Past Surgical History: Appendectomy, Section, Cholecystectomy, Heart Catheterization, Tonsillectomy, Tubal Ligation Additional Past Surgical History / Comment(s): carpal tunnel both wrists,shoulder surgery, ankle reconstruction. Past Anesthesia/Blood Transfusion Reactions: No Reported Reaction Past Psychological History: No Psychological Hx Reported Smoking Status: Former smoker Past Alcohol Use History: Occasional Past Drug Use History: None Reported - Past Family History Mother Family Medical History: Cancer, Coronary Artery Disease (CAD), Diabetes Mellitus Additional Family Medical History / Comment(s): ovarian cancer Father Family Medical History: Coronary Artery Disease (CAD), Diabetes Mellitus Brother(s) Additional Family Medical History / Comment(s): Brother #1 (Adam) colon cancer, liver cancer, lung cancer, diabetic, brain mets. Brother #2 (Elie) colon cancer, lung cancer with brain mets Sister(s) Family Medical History: Fibromyalgia Additional Family Medical History / Comment(s): Sister #1 (Desi) ovarian cancer and breast cancer with brain mets. Sister #2 (Celsa) stomach cancer, ovarian cancer Medications and Allergies Home Medications Medication Instructions Recorded Confirmed Type Levocetirizine Dihydrochloride 5 mg PO HS 12/21/17 11/23/19 History sitaGLIPtin [Januvia] 100 mg PO QAM 12/21/17 11/23/19 History Gabapentin 600 mg PO TID 06/29/19 11/23/19 History Isosorbide Mononitrate ER [Imdur] 30 mg PO QAM 06/29/19 11/23/19 History Nitroglycerin Sl Tabs [Nitrostat] 0.4 mg SUBLINGUAL Q5M PRN 06/29/19 11/23/19 History Rosuvastatin [Crestor] 20 mg PO HS #30 tab 07/01/19 11/23/19 Rx Torsemide [Demadex] 10 mg PO BID #60 tablet 07/01/19 11/23/19 Rx Aspirin 81 mg PO QAM 11/02/19 11/23/19 History Colchicine [Colcrys] 0.6 mg PO BID 11/02/19 11/23/19 History Enalapril Maleate [Vasotec] 2.5 mg PO QAM 11/02/19 11/23/19 History Febuxostat [Uloric] 80 mg PO QAM 11/02/19 11/23/19 History Ibuprofen [Motrin] 600 mg PO Q6HR PRN 11/23/19 11/23/19 History Cephalexin [Keflex] 500 mg PO Q8HR #30 cap 11/28/19 Rx Ciprofloxacin HCl [Cipro] 500 mg PO Q12H #20 tab 11/28/19 Rx Allergies Allergy/AdvReac Type Severity Reaction Status Date / Time adhesive Allergy Rash/Hives Verified 11/23/19 07:17 Sulfa (Sulfonamide Allergy Anaphylaxis Verified 11/23/19 07:17 Antibiotics) Physical Examination The patient is a 64-year-old female in no acute distress. She is alert and oriented 3. Exam of the left foot and ankle reveal a scab on the anterior ankle where there was the screw poking through the skin. There is a small wound on the medial ankle that appears to be healing. There is no surrounding erythema. There is multiple scabs to the tops of her toes. The pressure ulcer on the heel is covered in Santyl There is no motion to the ankle due to her cristina dware. She is able to wiggle her toes without difficulty. There is severe pain to palpation of the pressure ulcer on the heel. There is decreased sensation to her toes which is chronic in nature. Circulatory status is intact. Capillary refill less than 2 seconds. Results - Labs Labs: Abnormal Lab Results - Last 24 Hours (Table) 11/28/19 11/28/19 11/29/19 Range/Units 17:38 20:04 07:03 POC Glucose (mg/dL) 177 H 282 H 155 H (75-99) mg/dL 11/29/19 Range/Units 11:31 POC Glucose (mg/dL) 199 H (75-99) mg/dL Microbiology - Last 24 Hours (Table) 11/23/19 04:45 Blood Culture - Final Blood No Growth after 144 hours 11/23/19 05:00 Blood Culture - Final Blood No Growth after 144 hours H & H 11/23/19 11/25/19 11/26/19 Range/Units 05:00 07:26 08:02 Hgb 10.7 L 8.8 L D 8.8 L (11.4-16.0) gm/dL Hct 33.2 L 27.3 L 27.2 L (34.0-46.0) % 11/28/19 Range/Units 08:23 Hgb 8.7 L (11.4-16.0) gm/dL Hct 27.5 L (34.0-46.0) % Coagulation 11/23/19 Range/Units 05:00 INR 0.9 (<1.2) Result Diagrams: 11/28/19 08:23 11/28/19 08:23 - Diagnostic results Ankle/Foot x-ray: image reviewed (X-rays dated 11/23/2019 reveal good positioning and alignment of hardware to the left ankle.) Assessment and Plan (1) Cellulitis of left foot Current Visit: Yes Status: Acute Code(s): L03.116 - CELLULITIS OF LEFT LOWER LIMB SNOMED Code(s): 876953618 (2) Diarrhea Current Visit: Yes Status: Acute Code(s): R19.7 - DIARRHEA, UNSPECIFIED SNOMED Code(s): 70795263 (3) Wound of left foot Current Visit: Yes Status: Acute Code(s): S91.302A - UNSPECIFIED OPEN WOUND, LEFT FOOT, INITIAL ENCOUNTER SNOMED Code(s): 464358836 Plan: The clinical and x-ray findings were discussed with the patient. The case was also discussed at length with Dr. Adams. There appears to be no issues with her surgical wounds from her ankle surgery. Continue nonweightbearing to the left lower extremity. The patient will follow-up with Dr. Sorto upon discharge. Continue oral antibiotics per infectious disease. Wound care to direct pressure ulcer management. The patient is orthopedically stable for discharge home tomorrow with follow-up with her surgeon. We will sign off at this time.
[2019-11-29 17:04] LABS: Glucose,Whole Blood 152 mg/dL (75-99)
[2019-11-29 21:16] LABS: Glucose,Whole Blood 285 mg/dL (75-99)
[2019-11-29] MEDS: MELATONIN 5 MG TABLET PO SCH (21:16)
[2019-11-29] MEDS: ATORVASTATIN 40 MG TAB PO SCH (21:16)
[2019-11-30] MEDS: HYDROcodone/APAP 7.5-325MG 1 EACH TAB PO PRN ×2 (05:52→11:37)
[2019-11-30 07:11] LABS: Glucose,Whole Blood 165 mg/dL (75-99)
[2019-11-30] MEDS: HEPARIN SODIUM,PORCINE 5,000 UNIT/ML 1 ML VIAL SQ SCH ×2 (08:40→16:15)
[2019-11-30] MEDS: CEPHALEXIN 500 MG CAP PO SCH ×2 (08:47→16:14)
[2019-11-30] MEDS: LINAGLIPTIN 5 MG TABLET PO SCH (08:47)
[2019-11-30] MEDS: FAMOTIDINE 20 MG TAB PO SCH (08:47)
[2019-11-30] MEDS: ASPIRIN 81 MG PO SCH (08:47)
[2019-11-30] MEDS: CIPROFLOXACIN HCL 500 MG TAB PO SCH (08:47)
[2019-11-30] MEDS: SENNOSIDES 8.6 MG TAB PO SCH (08:48)
[2019-11-30] MEDS: LISINOPRIL 5 MG TAB PO SCH (08:48)
[2019-11-30] MEDS: GABAPENTIN 300 MG CAP PO SCH ×2 (08:48→16:14)
[2019-11-30] MEDS: ISOSORBIDE MONONITRATE ER 30 MG TAB.ER.24H PO SCH (08:48)
[2019-11-30] MEDS: CHOLESTYRAMINE (WITH SUGAR) 4 GM PACKET PO SCH ×2 (08:49→16:14)
[2019-11-30] MEDS: NYSTATIN 100,000 UNIT/GM OINT 30 GM TUBE TOPICAL SCH (08:49)
[2019-11-30] MEDS: COLCHICINE 0.6 MG EACH PO SCH (08:53)
[2019-11-30] MEDS: INSULIN ASPART (NovoLOG) 100 UNIT/ML VIAL SQ SCH ×2 (08:53→12:47)
[2019-11-30] MEDS: COLLAGENASE 250 UNIT/GM OINTMENT 30 GM TUBE TOPICAL SCH (08:56)
[2019-11-30] MEDS: BUTALB/APAP/CAFF 50-325-40MG TAB PO PRN ×2 (10:30→16:14)
[2019-11-30 11:36] LABS: Glucose,Whole Blood 164 mg/dL (75-99)
--- NOTE | 2019-11-30 12:03 | P.DS ---
Providers Date of admission: 11/23/19 06:24 Expected date of discharge: 11/30/19 Attending physician: Darron Mcgee Consults: 11/23/19 10:30 Consult Physician Routine Consulting Provider: Bennett Suero Consult Reason/Comments: cellulitis Do you want consulting provider notified?: Yes 11/29/19 11:20 Consult Physician Urgent Consulting Provider: Anibal Cleary Consult Reason/Comments: left ankle pain Do you want consulting provider notified?: Yes Primary care physician: Darron Mcgee Hospital Course: Final diagnosis Diabetic foot ulcer with significant cellulitis Left calcaneal stage II nonhealing ulcer Mild acute renal failure Leukocytosis secondary to foot ulcer and cellulitis History of coronary artery disease History of hyperlipidemia Hypertension Hyperkalemia Headache Right chest pain Discharge disposition Patient is being discharged in a stable condition with guarded prognosis to SNF for continued PT/OT therapy her strength and mobility and to continue with nonweightbearing of the left lower extremity. Patient is to continue on oral antibiotics in the form of Keflex and Cipro for the next 10 days until finished. Total time taken is 35 minutes. History of present illness This is a 64-year-old female who was recently admitted for nonhealing ulcer of the left calcaneus along with severe cellulitis and was being closely monitored. Patient does follow with Dr. Mcgee as her primary care provider in the outpatient setting. Patient had a left ankle fracture which was repaired at [facility] and will be following up with her orthopedic surgeon in the outpatient setting. Patient was seen and evaluated by orthopedics here recommending to continue with non-weightbearing along with finishing oral antibiotics for the next 10 days until finished. Currently no reports of chest pain, shortness of breath, or palpitations. Patient is afebrile. No reports of nausea or vomiting and patient is tolerating diet. Patient continues to be weak and needing 2-3 person assist with position changes and getting up and transitioning from the chair to the bed and will be requiring subacute rehab for continued PT/OT therapy for strength and mobility. Case management and social work are following and working on possible placement at [facility]. Awaiting for authorization to the facility at this time. Patient is agreeable to this at this time. On exam vital signs are stable. Temp is 98.1F, pulse is 69, respirations are 17, blood pressure is 128/61, oxygen saturation is 95% on room air. Cardio S1, S2 are present. Respiratory system shows clear to auscultation. Abdomen is soft, obese, nontender. Nervous system shows mild to moderate diffuse weakness. Please refer to medication reconciliation sheet for a list of medications. Patient Condition at Discharge: Stable Plan - Discharge Summary Discharge Rx Participant: No New Discharge Prescriptions: New Ciprofloxacin HCl [Cipro] 500 mg PO Q12H #20 tab Cephalexin [Keflex] 500 mg PO Q8HR #30 cap No Action sitaGLIPtin [Januvia] 100 mg PO QAM Levocetirizine Dihydrochloride 5 mg PO HS Nitroglycerin Sl Tabs [Nitrostat] 0.4 mg SUBLINGUAL Q5M PRN PRN Reason: Chest Pain Isosorbide Mononitrate ER [Imdur] 30 mg PO QAM Gabapentin 600 mg PO TID Rosuvastatin [Crestor] 20 mg PO HS #30 tab Torsemide [Demadex] 10 mg PO BID #60 tablet Enalapril Maleate [Vasotec] 2.5 mg PO QAM Colchicine [Colcrys] 0.6 mg PO BID Aspirin 81 mg PO QAM Febuxostat [Uloric] 80 mg PO QAM Ibuprofen [Motrin] 600 mg PO Q6HR PRN PRN Reason: Pain Discharge Medication List Levocetirizine Dihydrochloride 5 mg PO HS 12/21/17 [History] sitaGLIPtin [Januvia] 100 mg PO QAM 12/21/17 [History] Gabapentin 600 mg PO TID 06/29/19 [History] Isosorbide Mononitrate ER [Imdur] 30 mg PO QAM 06/29/19 [History] Nitroglycerin Sl Tabs [Nitrostat] 0.4 mg SUBLINGUAL Q5M PRN 06/29/19 [History] Rosuvastatin [Crestor] 20 mg PO HS #30 tab 07/01/19 [Rx] Torsemide [Demadex] 10 mg PO BID #60 tablet 07/01/19 [Rx] Aspirin 81 mg PO QAM 11/02/19 [History] Colchicine [Colcrys] 0.6 mg PO BID 11/02/19 [History] Enalapril Maleate [Vasotec] 2.5 mg PO QAM 11/02/19 [History] Febuxostat [Uloric] 80 mg PO QAM 11/02/19 [History] Ibuprofen [Motrin] 600 mg PO Q6HR PRN 11/23/19 [History] Cephalexin [Keflex] 500 mg PO Q8HR #30 cap 11/28/19 [Rx] Ciprofloxacin HCl [Cipro] 500 mg PO Q12H #20 tab 11/28/19 [Rx] Follow up Appointment(s)/Referral(s): Darron Mcgee MD [Primary Care Provider] - 1-2 days [facility], [NON-STAFF] - Wound Healing,Center [NON-STAFF] - 1 Week Patient Instructions/Handouts: Cellulitis (DC) Activity/Diet/Wound Care/Special Instructions: Plan is for patient to go to subacute rehab Activity as tolerated Continue antibiotics until finished Continue current diet Follow-up with primary care provider Dr. Mcgee in the outpatient setting Follow-up with orthopedics in the outpatient setting as discussed and scheduled Discharge Disposition: TRANSFER TO SNF/ECF
[2019-11-30 13:23] VITALS: BP 125/67; PULSE 78; TEMP 97.9
--- NOTE | 2019-11-30 13:54 | PN ---
PROGRESS NOTE DATE OF SERVICE: 11/30/2019 REASON FOR FOLLOWUP: Left heel wound and cellulitis. INTERVAL HISTORY: The patient is currently afebrile. Patient still complains of pain to the left heel, but no worsening. Denies any chest pain, shortness of breath or cough and no diarrhea. PHYSICAL EXAMINATION: On examination, her blood pressure is 128/61 with a pulse of 69, temperature 98.1. She is 95% on room air. General description is an elderly female up in the bed in no distress. RESPIRATORY SYSTEM: Unlabored breathing, decreased breath sounds at the bases. No wheeze. HEART: S1,S2. Regular rate and rhythm. ABDOMEN: Soft, no tenderness. LABS: No new labs have been obtained today. DIAGNOSTIC IMPRESSION AND PLAN: Patient with foot and left heel wound with cellulitis. Cultures did show MSSA and Enterobacter. Patient is covered with oral Keflex and the Cipro, which should continue for about 10 days and follow up with her family physician. Local care to continue with Santyl followed by moist dressing. Keep the area off the pressure of the left foot. MMODL / IJN: [id number] /
[2019-11-30 15:48] VITALS: RESP 16
== END 2019-11-30 17:06 | DRG 638 ==
LOC: EC 03:10 → 6NMEDSUR 06:24
PROVIDERS: ADMIT Family Medicine; ATTEND Family Medicine
DX: E11.621 Type 2 diabetes mellitus with foot ulcer (principal); L03.116 Cellulitis of left lower limb; L97.422 Non-pressure chronic ulcer of left heel and midfoot with fat layer exposed; L97.511 Non-pressure chronic ulcer of other part of right foot limited to breakdown of skin; N17.9 Acute kidney failure, unspecified; L89.892 Pressure ulcer of other site, stage 2; E11.628 Type 2 diabetes mellitus with other skin complications; E11.22 Type 2 diabetes mellitus with diabetic chronic kidney disease; G89.29 Other chronic pain; E78.5 Hyperlipidemia, unspecified; R19.7 Diarrhea, unspecified; I25.10 Atherosclerotic heart disease of native coronary artery without angina pectoris; M19.90 Unspecified osteoarthritis, unspecified site; E66.9 Obesity, unspecified; M10.9 Gout, unspecified; N64.9 Disorder of breast, unspecified; N18.2 Chronic kidney disease, stage 2 (mild); I89.0 Lymphedema, not elsewhere classified; R51 Headache; E87.5 Hyperkalemia; B95.61 Methicillin susceptible Staphylococcus aureus infection as the cause of diseases classified elsewhere; R07.89 Other chest pain; M06.9 Rheumatoid arthritis, unspecified; I10 Essential (primary) hypertension; Z68.32 Body mass index [BMI] 32.0-32.9, adult; I25.2 Old myocardial infarction; Z79.899 Other long term (current) drug therapy; Z79.82 Long term (current) use of aspirin; Z87.891 Personal history of nicotine dependence; Z98.1 Arthrodesis status; Z87.81 Personal history of (healed) traumatic fracture; Z90.49 Acquired absence of other specified parts of digestive tract; Z98.890 Other specified postprocedural states; Z98.51 Tubal ligation status; Z91.048 Other nonmedicinal substance allergy status; Z88.2 Allergy status to sulfonamides; Z83.3 Family history of diabetes mellitus; Z82.49 Family history of ischemic heart disease and other diseases of the circulatory system; Z80.41 Family history of malignant neoplasm of ovary; Z80.1 Family history of malignant neoplasm of trachea, bronchus and lung; Z80.0 Family history of malignant neoplasm of digestive organs; Z80.3 Family history of malignant neoplasm of breast
CPT/HCPCS: 36415; 70450; 71045; 71275; 80048; 80053; 81001; 82550; 82553; 83605; 84484; 85025; 85027; 85379; 85610; 85652; 85730; 86140; 87040; 87070; 87077; 87086; 87186; 87205; 93005; 96365; 96375; 99285

== ENCOUNTER 2020-06-28 07:45 | Inpatient (IN) | payer MEDICARE, BC ==
[2020-06-28] MEDS ORDERED: SODIUM CHLORIDE 0.9% 1,000 ML IV STA (08:09)
--- NOTE | 2020-06-28 08:15 | ED ---
General Adult HPI - General Source: patient, EMS, RN notes reviewed Mode of arrival: EMS Limitations: physical limitation <Harley Figueroa - Last Filed: 06/28/20 10:28> <Robin Duran - Last Filed: 06/28/20 12:17> - General Chief complaint: Nausea/Vomiting/Diarrhea Stated complaint: NVD Time Seen by Provider: 06/28/20 07:50 - History of Present Illness Initial comments: This is a 64-year-old female presents emergency department via EMS with chief complaint of generalized weakness, diarrhea. She states that she's been increasing feeling weak over the last few weeks states that she's having excessive diarrhea. She states that she felt that she had kidney infections so she started taking ciprofloxacin at home that she had left over. Patient states that her symptoms have been worsening. She denies any known fever but states that she's had some chills she states she is diffuse abdominal cramping with no localized pain. Denies any current chest pain or shortness of breath. Patient states that she is so weak she is barely able to transfer from her bed to her chair. She states that she contact her primary care physician recommended to come emergency department. (Harley Figueroa) - Related Data Home Medications Medication Instructions Recorded Confirmed Levocetirizine Dihydrochloride 5 mg PO HS 12/21/17 06/28/20 sitaGLIPtin [Januvia] 100 mg PO QAM 12/21/17 06/28/20 Isosorbide Mononitrate ER [Imdur] 30 mg PO QAM 06/29/19 06/28/20 Nitroglycerin Sl Tabs [Nitrostat] 0.4 mg SUBLINGUAL Q5M PRN 06/29/19 06/28/20 Aspirin 81 mg PO QAM 11/02/19 06/28/20 Colchicine [Colcrys] 0.6 mg PO BID 11/02/19 06/28/20 Enalapril Maleate [Vasotec] 2.5 mg PO QAM 11/02/19 06/28/20 Febuxostat [Uloric] 80 mg PO QAM 11/02/19 06/28/20 Clopidogrel [Plavix] 75 mg PO DAILY 06/28/20 06/28/20 Torsemide [Demadex] 10 mg PO BID 06/28/20 06/28/20 Previous Rx's Medication Instructions Recorded Rosuvastatin [Crestor] 20 mg PO HS #30 tab 07/01/19 Gabapentin 600 mg PO TID #3 tab 11/30/19 traMADol HCl [Ultram] 50 mg PO QID PRN #4 tab 11/30/19 Allergies Allergy/AdvReac Type Severity Reaction Status Date / Time adhesive Allergy Rash/Hives Verified 06/28/20 11:32 ofloxacin [From Floxin] Allergy Anaphylaxis Verified 06/28/20 11:32 Sulfa (Sulfonamide Allergy Anaphylaxis Verified 06/28/20 11:32 Antibiotics) Review of Systems ROS Other: All systems not noted in ROS Statement are negative. <Harley Figueroa - Last Filed: 06/28/20 10:28> ROS Other: All systems not noted in ROS Statement are negative. <Robin Duran - Last Filed: 06/28/20 12:17> ROS Statement: Those systems with pertinent positive or pertinent negative responses have been documented in the HPI. Past Medical History Past Medical History: Coronary Artery Disease (CAD), Diabetes Mellitus, Hyperlipidemia, Osteoarthritis (OA), Renal Disease Additional Past Medical History / Comment(s): states back pain, current " creacked bone in left ankle wrapped with [place] wrap CURRENTLY USING CRUTCHES broke left ankle aug 26 2018. Last Myocardial Infarction Date:: 06/03/2019 History of Any Multi-Drug Resistant Organisms: None Reported Past Surgical History: Appendectomy, Section, Cholecystectomy, Heart Catheterization, Tonsillectomy, Tubal Ligation Additional Past Surgical History / Comment(s): carpal tunnel both wrists,shoulder surgery, ankle reconstruction. Past Anesthesia/Blood Transfusion Reactions: No Reported Reaction Past Psychological History: No Psychological Hx Reported Smoking Status: Former smoker Past Alcohol Use History: Occasional Past Drug Use History: None Reported - Past Family History Mother Family Medical History: Cancer, Coronary Artery Disease (CAD), Diabetes Mellitus Additional Family Medical History / Comment(s): ovarian cancer Father Family Medical History: Coronary Artery Disease (CAD), Diabetes Mellitus Brother(s) Additional Family Medical History / Comment(s): Brother #1 (Adam) colon cancer, liver cancer, lung cancer, diabetic, brain mets. Brother #2 (Elie) colon cancer, lung cancer with brain mets Sister(s) Family Medical History: Fibromyalgia Additional Family Medical History / Comment(s): Sister #1 (Desi) ovarian cancer and breast cancer with brain mets. Sister #2 (Celsa) stomach cancer, ovarian cancer <Harley Figueroa M - Last Filed: 06/28/20 10:28> General Exam Limitations: physical limitation General appearance: alert, in no apparent distress Head exam: Present: atraumatic, normocephalic, normal inspection ENT exam: Present: normal exam, normal oropharynx, mucous membranes moist Neck exam: Present: normal inspection, full ROM. Absent: tenderness, meningismus, lymphadenopathy Respiratory exam: Present: normal lung sounds bilaterally. Absent: respiratory distress, wheezes, rales, rhonchi, stridor Cardiovascular Exam: Present: regular rate, normal rhythm, normal heart sounds. Absent: systolic murmur, diastolic murmur, rubs, gallop, clicks GI/Abdominal exam: Present: soft, tenderness (Mild diffuse), normal bowel sounds. Absent: distended, guarding, rebound, rigid Back exam: Absent: CVA tenderness (R), CVA tenderness (L) Neurological exam: Present: alert, oriented X3 Skin exam: Present: warm, dry, intact, normal color. Absent: rash <Harley Figueroa M - Last Filed: 06/28/20 10:28> Course <Robin Duran - Last Filed: 06/28/20 12:17> Vital Signs 06/28/20 06/28/20 06/28/20 07:51 07:52 08:00 Temperature 97.5 F L Pulse Rate 79 Respiratory 16 Rate Blood Pressure 117/68 117/68 O2 Sat by Pulse 97 93 L 95 Oximetry 06/28/20 06/28/20 06/28/20 08:30 09:00 09:30 Temperature Pulse Rate Respiratory Rate Blood Pressure 106/57 114/55 103/53 O2 Sat by Pulse 90 L Oximetry 06/28/20 06/28/20 10:00 10:30 Temperature Pulse Rate 72 Respiratory Rate Blood Pressure 119/64 109/62 O2 Sat by Pulse 92 L Oximetry - Reevaluation(s) Reevaluation #1: 06/28/20 12:17 PEs supervision: I proceeded [id number] evaluation the patient. It is present with evidence of weakness. She has evidence of acute kidney injury dehydration and failure to thrive. I did discuss case with Dr. baker. Patient will be admitted (Robin Duran) EKG Findings - EKG Comments: EKG Findings:: EKG performed at 8:24 sinus rhythm with first-degree block right bundle rate of 75 ID 226 QRS 162 QT/QTC 464/518 <Harlye Figueroa - Last Filed: 06/28/20 10:28> Medical Decision Making - Lab Data Result diagrams: 06/28/20 08:23 06/28/20 08:23 <Harley Figueroa - Last Filed: 06/28/20 10:28> - Lab Data Result diagrams: 06/28/20 08:23 06/28/20 08:23 <Robin Duran - Last Filed: 06/28/20 12:17> - Medical Decision Making Patient presented for weakness, diarrhea. Patient's found to have acute kidney injury, dehydration, failure to thrive. Patient has had ongoing diarrhea C. diff was ordered. Patient will be admitted for IV hydration, stool studies. (Harley Figueroa) - Lab Data Lab Results 06/28/20 06/28/20 06/28/20 Range/Units 08:23 08:23 08:23 WBC 12.5 H (3.8-10.6) k/uL RBC 3.74 L (3.80-5.40) m/uL Hgb 9.7 L (11.4-16.0) gm/dL Hct 30.3 L (34.0-46.0) % MCV 81.0 (80.0-100.0) fL MCH 26.1 (25.0-35.0) pg MCHC 32.2 (31.0-37.0) g/dL RDW 17.5 H (11.5-15.5) % Plt Count 502 H (150-450) k/uL Neutrophils % 70 % Lymphocytes % 17 % Monocytes % 10 % Eosinophils % 2 % Basophils % 1 % Neutrophils # 8.7 H (1.3-7.7) k/uL Lymphocytes # 2.2 (1.0-4.8) k/uL Monocytes # 1.2 H (0-1.0) k/uL Eosinophils # 0.2 (0-0.7) k/uL Basophils # 0.1 (0-0.2) k/uL Hypochromasia Slight Poikilocytosis Moderate Anisocytosis Slight Microcytosis Slight Sodium 136 L (137-145) mmol/L Potassium 4.4 (3.5-5.1) mmol/L Chloride 106 (98-107) mmol/L Carbon Dioxide 18 L (22-30) mmol/L Anion Gap 12 mmol/L BUN 41 H (7-17) mg/dL Creatinine 2.03 H (0.52-1.04) mg/dL Est GFR (CKD-EPI)AfAm 29 (>60 ml/min/1.73 sqM) Est GFR (CKD-EPI)NonAf 25 (>60 ml/min/1.73 sqM) Glucose 123 H (74-99) mg/dL Plasma Lactic Acid Claudio (0.7-2.0) mmol/L Calcium 8.6 (8.4-10.2) mg/dL Total Bilirubin 0.3 (0.2-1.3) mg/dL AST 41 H (14-36) U/L ALT 31 (4-34) U/L Alkaline Phosphatase 48 (38-126) U/L Troponin I (0.000-0.034) ng/mL Total Protein 6.3 (6.3-8.2) g/dL Albumin 3.5 (3.5-5.0) g/dL Amylase 31 (30-110) U/L Lipase 49 (23-300) U/L Urine Color Yellow Urine Appearance Clear (Clear) Urine pH 5.5 (5.0-8.0) Ur Specific Strong 1.008 (1.001-1.035) Urine Protein Trace H (Negative) Urine Glucose (UA) Negative (Negative) Urine Ketones Negative (Negative) Urine Blood Negative (Negative) Urine Nitrite Negative (Negative) Urine Bilirubin Negative (Negative) Urine Urobilinogen <2.0 (<2.0) mg/dL Ur Leukocyte Esterase Negative (Negative) C. difficile (EIA) Intrp (Negative) 06/28/20 06/28/20 06/28/20 Range/Units 08:23 08:23 08:23 WBC (3.8-10.6) k/uL RBC (3.80-5.40) m/uL Hgb (11.4-16.0) gm/dL Hct (34.0-46.0) % MCV (80.0-100.0) fL MCH (25.0-35.0) pg MCHC (31.0-37.0) g/dL RDW (11.5-15.5) % Plt Count (150-450) k/uL Neutrophils % % Lymphocytes % % Monocytes % % Eosinophils % % Basophils % % Neutrophils # (1.3-7.7) k/uL Lymphocytes # (1.0-4.8) k/uL Monocytes # (0-1.0) k/uL Eosinophils # (0-0.7) k/uL Basophils # (0-0.2) k/uL Hypochromasia Poikilocytosis Anisocytosis Microcytosis Sodium (137-145) mmol/L Potassium (3.5-5.1) mmol/L Chloride (98-107) mmol/L Carbon Dioxide (22-30) mmol/L Anion Gap mmol/L BUN (7-17) mg/dL Creatinine (0.52-1.04) mg/dL Est GFR (CKD-EPI)AfAm (>60 ml/min/1.73 sqM) Est GFR (CKD-EPI)NonAf (>60 ml/min/1.73 sqM) Glucose (74-99) mg/dL Plasma Lactic Acid Claudio 1.0 (0.7-2.0) mmol/L Calcium (8.4-10.2) mg/dL Total Bilirubin (0.2-1.3) mg/dL AST (14-36) U/L ALT (4-34) U/L Alkaline Phosphatase (38-126) U/L Troponin I 0.014 (0.000-0.034) ng/mL Total Protein (6.3-8.2) g/dL Albumin (3.5-5.0) g/dL Amylase (30-110) U/L Lipase (23-300) U/L Urine Color Urine Appearance (Clear) Urine pH (5.0-8.0) Ur Specific Strong (1.001-1.035) Urine Protein (Negative) Urine Glucose (UA) (Negative) Urine Ketones (Negative) Urine Blood (Negative) Urine Nitrite (Negative) Urine Bilirubin (Negative) Urine Urobilinogen (<2.0) mg/dL Ur Leukocyte Esterase (Negative) C. difficile (EIA) Intrp Negative (Negative) Disposition <Dedoe,Harley M - Last Filed: 06/28/20 10:28> <Robin Duran - Last Filed: 06/28/20 12:17> Clinical Impression: Acute kidney injury, Dehydration, Failure to thrive, Diarrhea Disposition: ADMITTED IP TO THIS HOSP Condition: Poor
[2020-06-28 08:55] LABS: Albumin 3.5 g/dL (3.5-5.0); Calcium 8.6 mg/dL (8.4-10.2); Potassium 4.4 mmol/L (3.5-5.1); Total Bilirubin 0.3 mg/dL (0.2-1.3); Total Protein 6.3 g/dL (6.3-8.2)
[2020-06-28 09:02] LABS: Anisocytosis Slight; Basophils # (A) 0.1 k/uL (0-0.2); Basophils % (A) 1 %; Eosinophils # (A) 0.2 k/uL (0-0.7); Eosinophils % (A) 2 %; HCT 30.3 % (34.0-46.0); HGB 9.7 gm/dL (11.4-16.0); Hypochromasia Slight; Lymphocytes # (A) 2.2 k/uL (1.0-4.8); Lymphocytes % (A) 17 %; MCH 26.1 pg (25.0-35.0); MCHC 32.2 g/dL (31.0-37.0); Mean Platelet Volume 6.8; Microcytosis Slight; Monocytes # (A) 1.2 k/uL (0-1.0); Monocytes % (A) 10 %; Neutrophils # (A) 8.7 k/uL (1.3-7.7); Neutrophils % (A) 70 %; Platelet Count 502 k/uL (150-450); Poikilocytosis Moderate; RBC 3.74 m/uL (3.80-5.40); RDW 17.5 % (11.5-15.5); WBC 12.5 k/uL (3.8-10.6)
--- NOTE | 2020-06-28 10:13 | XR ---
EXAMINATION TYPE: XR chest 2V DATE OF EXAM: 06/28/2020 COMPARISON: Chest x-ray November 25, 2019. CTA chest November 28, 2019. HISTORY: Weakness and diarrhea. TECHNIQUE: Frontal and lateral views of the chest are obtained. FINDINGS: Persistent low lung volumes and slightly elevated right hemidiaphragm. There is some mild c hronic parenchymal changes without suspicious new focal air space opacity, pleural effusion, or pneum othorax seen. The cardiac silhouette size remains within normal limits. Slight underlying scoliotic curvature redemonstrated. IMPRESSION: Chronic changes without new acute process identified.
[2020-06-28] MEDS ORDERED: ACETAMINOPHEN TAB 325 MG TAB PO PRN (10:36)
[2020-06-28] MEDS ORDERED: NALOXONE 0.4 MG/ML 1 ML VIAL IV PRN (10:36)
[2020-06-28 10:41] LABS: Appearance,Urine Clear (Clear); Bilirubin,Urine Negative (Negative); Blood,Urine Negative (Negative); Color,Urine Yellow; Glucose,Urine (UA) Negative (Negative); Ketones,Urine Negative (Negative); Leukocyte Esterase,Urine Negative (Negative); Nitrite,Urine Negative (Negative); PH, Urine 5.5 (5.0-8.0); Protein,Urine Trace (Negative); Specific Gravity,Urine 1.008 (1.001-1.035); Urobilinogen,Urine <2.0 mg/dL (<2.0)
[2020-06-28] MEDS: SODIUM CHLORIDE 0.9% 1,000 ML IV SCH ×2 (11:32→19:24)
[2020-06-28 12:36] LABS: Glucose,Whole Blood 125 mg/dL (75-99)
[2020-06-28] MEDS ORDERED: NITROGLYCERIN SL TABS 0.4 MG TAB SUBLINGUAL PRN (13:46)
--- NOTE | 2020-06-28 14:42 | HP ---
HISTORY AND PHYSICAL DATE OF SERVICE: 06/28/2020 CHIEF COMPLAINT: Diarrhea, vomiting and weakness. HISTORY OF PRESENT ILLNESS: This 64-year-old woman with a past medical history of multiple medical problems including CAD, diabetes, hypertension, hyperlipidemia, appendectomy, history of cholecystectomy being followed by Dr. Darron Mcgee in the outpatient setting. The patient is living by herself. Patient apparently has a granddaughter who works at the [employer] and was helping her 3 times a week about 3 hours per day. The patient is having diarrhea, abdominal discomfort, nausea, some vomiting for the last 7 days. The patient became extremely weak and dehydrated. Patient taken to [facility] and was admitted for further evaluation and treatment. There is some diffuse abdominal cramping. Stool C difficile is negative. The evaluation showed evidence of renal failure with creatinine 2. Baseline was fluctuating. There is no history of fever, rigors or chills. No history of headache, loss of consciousness or seizures. No cough, spitting up, hemoptysis, shortness of breath, hematochezia, melena at this time. PAST MEDICAL HISTORY: History of CAD, history of diabetes type 2, DJD, hyperlipidemia, history of appendectomy, history of cholecystectomy. MEDICATIONS: Prior to admission include Plavix, Demadex, Ultram, Januvia, Crestor, Nitrostat, levocetirizine, Imdur, gabapentin, Uloric, Vasotec, Colcrys, aspirin. ALLERGIES: ADHESIVES, OFLOXACIN, SULFA. FAMILY HISTORY: History of CAD, diabetes, ovarian cancer. SOCIAL HISTORY: History of occasional alcohol intake. Previous history of smoker. REVIEW OF SYSTEMS: ENT: Diminished vision. Diminished hearing. Cardiovascular as mentioned earlier. Respiratory as mentioned earlier. GI: As mentioned earlier. : As mentioned earlier. Nervous system as mentioned earlier. Allergy/Immunology: No asthma or hayfever. Musculoskeletal as mentioned earlier. The patient recently had left ankle surgery from [facility]. Hematology/Oncology: As mentioned earlier. Dermatology as mentioned earlier. History of gout. CONSTITUTIONAL: As mentioned earlier. PSYCHIATRIC: As mentioned earlier. PHYSICAL EXAMINATION: Alert and oriented x3. Pulse 73. Blood pressure 106/43, respiration 18, temperature 97.2, pulse ox 98% on room air. HEENT is conjunctivae pale. Oral mucosa is dry. NECK is no jugular venous distention. No carotid bruit. No lymph node enlargement. CARDIOVASCULAR: S1, S2 muffled. No S3, no S4. RESPIRATORY: Breath sounds diminished in the bases. A few scattered rhonchi. No crackles. ABDOMEN: Soft, nontender. No mass. LEGS: Minimal edema of the left leg and especially in the ankle area otherwise right leg no edema. NERVOUS SYSTEM: Higher functions as mentioned earlier. Moves all four limbs. No focal deficits. LYMPHATICS: No lymph nodes palpable in the neck, axilla or groin. SKIN: No ulcer, no rash and no bleeding. JOINTS: No active deforming arthropathy. LABS: WBC 12.2, hemoglobin 9.7, sodium 136. Creatinine is 2.03. ASSESSMENT: 1. Nausea and vomiting, diarrhea possible acute gastroenteritis with severe dehydration. 2. Acute renal failure with acute tubular necrosis, prerenal renal factors. 3. Hyponatremia. 4. Increased WBC possibly reactive. 5. Rule out COVID-19. 6. Anemia, normocytic. 7. Increased platelets. 8. History of coronary artery disease. 9. Diabetes mellitus type 2. 10.Hyperlipidemia. 11.History of degenerative joint disease. 12.History of left ankle surgery. 13.Gait dysfunction. 14.Cholecystectomy. 15.Remote history of nicotine dependence. 16.FULL CODE. RECOMMENDATIONS AND DISCUSSION: In this 64-year-old woman who presented with multiple complex medical issues, we will monitor the patient closely. We will keep the patient on clear liquids. Symptomatic treatment will be provided. IV fluids. Monitor creatinine closely. Otherwise, COVID- 19 test is also being ordered. PT/OT evaluation, possible ECF rehab. Resume the home medication, but we will avoid nephrotoxic medication as well as all of the diuretics. Overall prognosis extremely guarded because of multiple complex medical issues. Discussed with the patient who understands and agrees. Further recommendations to follow. A copy of dictation being forwarded to Dr. Mcgee, who is the primary physician. MMODL / IJN: [id number] /
[2020-06-28 14:43] LABS: Uric Acid 6.8 mg/dL (3.7-7.4)
[2020-06-28] MEDS: PANTOPRAZOLE 40 MG/10 ML VIAL IVP SCH ×2 (16:18→20:27)
[2020-06-28] MEDS: GABAPENTIN 300 MG CAP PO SCH ×2 (16:19→21:52)
[2020-06-28 17:28] LABS: Glucose,Whole Blood 137 mg/dL (75-99)
[2020-06-28] MEDS: INSULIN ASPART (NovoLOG) 100 UNIT/ML VIAL SQ SCH ×2 (18:17→21:51)
[2020-06-28] MEDS: ONDANSETRON 4 MG/2 ML VIAL IVP PRN (19:18)
[2020-06-28] MEDS: HEPARIN SODIUM,PORCINE 5,000 UNIT/ML 1 ML VIAL SQ SCH (20:27)
[2020-06-28] MEDS: LORATADINE 10 MG TAB PO SCH (20:28)
[2020-06-28] MEDS: HYDROcodone/APAP 5-325MG 1 EACH TAB PO PRN (20:28)
[2020-06-28] MEDS: ATORVASTATIN 40 MG TAB PO SCH (20:28)
[2020-06-28 21:25] LABS: Glucose,Whole Blood 167 mg/dL (75-99)
[2020-06-28] MEDS: traMADol 50 MG TAB PO PRN (21:52)
[2020-06-29] MEDS: HYDROcodone/APAP 5-325MG 1 EACH TAB PO PRN ×2 (02:16→08:47)
[2020-06-29] MEDS: ONDANSETRON 4 MG/2 ML VIAL IVP PRN (02:19)
[2020-06-29] MEDS: SODIUM CHLORIDE 0.9% 1,000 ML IV SCH ×3 (02:30→18:25)
[2020-06-29] MEDS: traMADol 50 MG TAB PO PRN ×2 (05:58→18:24)
[2020-06-29 06:21] LABS: Anisocytosis Slight; Basophils # (A) 0.1 k/uL (0-0.2); Basophils % (A) 1 %; Eosinophils # (A) 0.1 k/uL (0-0.7); Eosinophils % (A) 2 %; HCT 24.5 % (34.0-46.0); Hypochromasia Moderate; Lymphocytes # (A) 1.9 k/uL (1.0-4.8); Lymphocytes % (A) 24 %; MCH 26.5 pg (25.0-35.0); MCHC 32.5 g/dL (31.0-37.0); MCV 81.7 fL (80.0-100.0); Mean Platelet Volume 6.7; Monocytes # (A) 0.9 k/uL (0-1.0); Monocytes % (A) 12 %; Neutrophils # (A) 4.6 k/uL (1.3-7.7); Neutrophils % (A) 60 %; Platelet Count 372 k/uL (150-450); Poikilocytosis Moderate; RBC 2.99 m/uL (3.80-5.40); RDW 17.7 % (11.5-15.5); WBC 7.7 k/uL (3.8-10.6)
[2020-06-29 06:26] LABS: HGB 7.9 gm/dL (11.4-16.0)
[2020-06-29 07:18] LABS: Glucose,Whole Blood 131 mg/dL (75-99)
[2020-06-29] MEDS: INSULIN ASPART (NovoLOG) 100 UNIT/ML VIAL SQ SCH ×4 (08:35→21:30)
[2020-06-29] MEDS: allopurinoL 100 MG TAB PO SCH (08:46)
[2020-06-29] MEDS: GABAPENTIN 300 MG CAP PO SCH ×3 (08:46→21:25)
[2020-06-29] MEDS: PANTOPRAZOLE 40 MG/10 ML VIAL IVP SCH ×2 (08:47→21:26)
[2020-06-29] MEDS: LINAGLIPTIN 5 MG TABLET PO SCH (08:48)
[2020-06-29] MEDS: HEPARIN SODIUM,PORCINE 5,000 UNIT/ML 1 ML VIAL SQ SCH (08:48)
[2020-06-29] MEDS: CLOPIDOGREL 75 MG TAB PO SCH (08:48)
[2020-06-29] MEDS: ISOSORBIDE MONONITRATE ER 30 MG TAB.ER.24H PO SCH (09:45)
[2020-06-29 09:46] LABS: African American GFR (CKD) 33.4 (60.0-200.0); Anion Gap 9.1 mmol/L (4.00-12.00); BUN/Creat Ratio 21.11 Ratio (12.00-20.00); Calcium 7.8 mg/dL (8.7-10.3); Carbon Dioxide 16.9 mmol/L (21.6-31.8); Non-African American GFR(CKD) 28.8 (60.0-200.0); Potassium 4.2 mmol/L (3.5-5.5)
--- NOTE | 2020-06-29 10:22 | US ---
EXAMINATION TYPE: US venous doppler duplex LE LT DATE OF EXAM: 06/29/2020 10:17 AM COMPARISON: NONE CLINICAL HISTORY: swelling pain . Recent left lower leg surgery SIDE PERFORMED: Left TECHNIQUE: The lower extremity deep venous system is examined utilizing real time linear array sonog isauro with graded compression, doppler sonography and color-flow sonography. VESSELS IMAGED: External Iliac Vein (EIV) Common Femoral Vein Deep Femoral Vein Greater Saphenous Vein * Femoral Vein Popliteal Vein Small Saphenous Vein * Proximal Calf Veins (* superficial vessels) Left Leg: Negative for DVT IMPRESSION: 1. Left lower extremity ultrasound negative for deep venous thrombosis.
--- NOTE | 2020-06-29 10:25 | XR ---
EXAMINATION TYPE: XR shoulder complete RT DATE OF EXAM: 06/29/2020 COMPARISON: NONE HISTORY: Pain, fall decreased range of motion TECHNIQUE: Shoulder examined in 3 views FINDINGS: The humeral head articulates with the glenoid. There may be some erosion or resection of the distal clavicle. Acromioclavicular orientation appears preserved. No acute fractures or dislocations are evident. A follow up study can be performed 7-10 days from acute trauma for continued pain. IMPRESSION: 1. No acute osseous abnormality right shoulder.
[2020-06-29 11:05] LABS: INR 1.1 (<1.2); Prothrombin Time 10.8 sec (9.0-12.0)
[2020-06-29 12:53] VITALS: BMI 40.1
[2020-06-29] MEDS: IOPAMIDOL CONTRAST (ORAL USE) VIAL PO PRN ×2 (12:54→14:01)
[2020-06-29] MEDS: BACITRACIN ZINC 500 UNIT/GM OINT 28.4 GM TUBE TOPICAL SCH ×2 (12:55→21:25)
[2020-06-29 13:03] LABS: Glucose,Whole Blood 110 mg/dL (75-99)
--- NOTE | 2020-06-29 13:19 | NM ---
EXAMINATION TYPE: NM pul vent and perfuse DATE OF EXAM: 06/29/2020 COMPARISON: Chest x-ray 06/28/2020 HISTORY: Pulmonary embolism elevated d-dimer TECHNIQUE: Utilizing inhalation of 70.2 mCi Tc 99m DTPA aerosol and intravenous injection of 5.3 mCi of Tc 99m MAA, ventilation and perfusion images are acquired post injection in multiple projections. FINDINGS: Normal radiotracer distribution is noted in the lungs. There is no evidence of mismatched defects. No moderate or large perfusion defects are evident. No triple matched defects are evident. IMPRESSION: Probability acute pulmonary embolism
[2020-06-29 17:38] LABS: Glucose,Whole Blood 130 mg/dL (75-99)
[2020-06-29 18:18] LABS: Anisocytosis Slight; Basophils # (A) 0.1 k/uL (0-0.2); Basophils % (A) 1 %; Eosinophils # (A) 0.1 k/uL (0-0.7); Eosinophils % (A) 1 %; HCT 25.7 % (34.0-46.0); HGB 8.4 gm/dL (11.4-16.0); Hypochromasia Moderate; Lymphocytes # (A) 1.6 k/uL (1.0-4.8); Lymphocytes % (A) 24 %; MCH 26.9 pg (25.0-35.0); MCHC 32.5 g/dL (31.0-37.0); MCV 82.8 fL (80.0-100.0); Mean Platelet Volume 6.8; Monocytes # (A) 0.7 k/uL (0-1.0); Monocytes % (A) 10 %; Neutrophils # (A) 4.2 k/uL (1.3-7.7); Neutrophils % (A) 63 %; Platelet Count 342 k/uL (150-450); Poikilocytosis Slight; RBC 3.11 m/uL (3.80-5.40); RDW 17.7 % (11.5-15.5); WBC 6.7 k/uL (3.8-10.6)
--- NOTE | 2020-06-29 19:09 | CT ---
EXAMINATION TYPE: CT abdomen pelvis wo con DATE OF EXAM: 06/29/2020 COMPARISON: None HISTORY: diarrhea for 8 days nausea and vomiting CT DLP: 1466.4 mGycm Automated exposure control for dose reduction was used. There is oral contrast. There is some infiltrate and atelectasis at the lung bases mainly on the right side. There is no jaquelin cardial effusion. There is no pleural effusion. Liver shows no focal defect. Spleen is intact. There is no evidence of pancreatic mass. Stomach is in tact. Gallbladder appears absent. The bile ducts are not dilated. There is no adrenal mass. Kidneys have normal size. There is no hydronephrosis. There are bilateral r enal cortical cysts that measure up to 2 cm. There is no retroperitoneal adenopathy. Bladder distends smoothly. There is no inguinal hernia. There are multiple sigmoid diverticula. There is no diverticu litis. There is no free fluid in the pelvis. There is no mesenteric edema. There is no ascites or free air. There is periumbilical and umbilical h ernias that contain fat. Appendix is not definitely seen. There is no sign of thickened appendix. The re is no mesenteric edema. There is no evidence of free air or ascites. There is no bowel obstruction . Lumbar vertebra have normal alignment. There is spurring of the endplates. There is 20% compression d eformity of L5 vertebra that appears old. There is hypertrophic osteoarthritis in the right hip joint . I see no pelvic fracture. IMPRESSION: Atherosclerotic vascular disease. No bowel obstruction. Mild basilar pulmonary infiltrates. Sigmoid diverticulosis without diverticulitis. Lumbar spondylotic changes. Old L5 compression fracture.
--- NOTE | 2020-06-29 19:11 | PN ---
PROGRESS NOTE DATE OF SERVICE: 06/29/2020 This 64-year-old woman admitted with significant diarrhea and weakness has persistent diarrhea. C difficile has been negative. Patient also had acute renal failure with acute tubular necrosis with IV fluids. The patient is feeling better, but the labs are not available. The labs are showing creatinine 1.8, yesterday it was 2.03. Influenza is negative. COVID-19 is also negative. Hemoglobin is 7.9. Past medical history reviewed. REVIEW OF SYSTEMS: Cardiovascular system: No angina or palpitations. Respiration: As mentioned earlier. GI mentioned earlier. : No dysuria. NERVOUS SYSTEM: No numbness or weakness. CURRENT MEDICATIONS: Reviewed and include: 1. Tylenol p.r.n. 2. Challis 5 mg. 3. Xanax. 4. Lipitor. 5. Plavix. 6. Bacitracin. 7. Neutropenia. 8. Neurontin. 9. Heparin. 10.Imdur. 11.Tradjenta. 12.Claritin. 13.Other medication doses are reviewed. PHYSICAL EXAM: Patient is alert, oriented x2. Pulse 78, blood pressure 120/64, respirations 16, temp 97.8, pulse ox 98% on room air. HEENT is conjunctivae pale. Oral mucosa moist. NECK is no jugular venous distention. No carotid bruit. No lymph node enlargement. Cardiovascular systems: S1, S2 muffled. Respirations: Breath sounds diminished in the bases. No rhonchi. No crackles. ABDOMEN: Soft. Mild diffuse discomfort. Otherwise, no guarding. No mass palpable. LEGS: No edema. NERVOUS SYSTEM: No focal deficits. LABS: WBC 7.6, hemoglobin 7.9, sodium 138, potassium 4.2, and calcium 7.8. ASSESSMENT: 1. Nausea and vomiting, diarrhea; possible acute gastroenteritis, severe dehydration. 2. Rule out gastrointestinal bleed with blood-loss anemia acute. 3. Acute renal failure with acute tubular necrosis and prerenal factors. 4. Hyponatremia. 5. Increased WBC possibly reactive. 6. COVID-19 ruled out. 7. Anemia, normocytic. 8. Increased platelets. 9. History of coronary artery disease. 10.Diabetes mellitus type 2. 11.Hyperlipidemia. 12.History of degenerative joint disease. 13.History of left ankle surgery. 14.Gait dysfunction. 15.Cholecystectomy. 16.Remote history of nicotine dependence. 17.FULL CODE. RECOMMENDATIONS AND DISCUSSION: I recommend to continue current medications, management and symptomatic treatment. Otherwise, we will check the hemoglobin further. Other than that, I would recommend a gastroenterology evaluation. A CT scan of the abdomen and pelvis was requested. The results are pending at this time. V/Q scan showed possibly pulmonary embolism. Guarded prognosis. Further recommendations to follow. We will also obtain a pulmonary consultation also. MAVERICKL / IJN: [id number] /
[2020-06-29 20:09] LABS: Glucose,Whole Blood 130 mg/dL (75-99)
[2020-06-29] MEDS ORDERED: HEPARIN SODIUM,PORCINE 5,000 UNIT/ML 1 ML VIAL IV PRN (20:43)
[2020-06-29] MEDS ORDERED: HEPARIN SODIUM,PORCINE 10,000 UNIT/ML 1 ML VIAL IV ONE (20:43)
[2020-06-29 21:25] LABS: INR 0.9 (<1.2); Partial Thromboplastin Time 20.6 sec (22.0-30.0); Prothrombin Time 9.9 sec (9.0-12.0)
[2020-06-29] MEDS: LORATADINE 10 MG TAB PO SCH (21:25)
[2020-06-29] MEDS: CHOLESTYRAMINE (WITH SUGAR) 4 GM PACKET PO SCH (21:25)
[2020-06-29] MEDS: ATORVASTATIN 40 MG TAB PO SCH (21:25)
[2020-06-29] MEDS: HEPARIN SOD,PORK IN 0.45% NACL 25,000 UNIT in 0.45% NACL 1 250ML.BAG IV SCH (22:19)
[2020-06-30 05:06] LABS: Anisocytosis Slight; Basophils # (A) 0.1 k/uL (0-0.2); Basophils % (A) 1 %; Eosinophils # (A) 0.1 k/uL (0-0.7); Eosinophils % (A) 1 %; HCT 25.1 % (34.0-46.0); HGB 8.1 gm/dL (11.4-16.0); Hypochromasia Moderate; Lymphocytes # (A) 1.6 k/uL (1.0-4.8); Lymphocytes % (A) 23 %; MCH 26.6 pg (25.0-35.0); MCHC 32.3 g/dL (31.0-37.0); MCV 82.3 fL (80.0-100.0); Mean Platelet Volume 6.7; Monocytes # (A) 0.7 k/uL (0-1.0); Monocytes % (A) 10 %; Neutrophils # (A) 4.4 k/uL (1.3-7.7); Neutrophils % (A) 63 %; Platelet Count 329 k/uL (150-450); Poikilocytosis Slight; RBC 3.04 m/uL (3.80-5.40); RDW 17.6 % (11.5-15.5)
[2020-06-30] MEDS: SODIUM CHLORIDE 0.9% 1,000 ML IV SCH ×3 (06:00→18:17)
[2020-06-30 07:10] LABS: Glucose,Whole Blood 104 mg/dL (75-99)
[2020-06-30] MEDS: INSULIN ASPART (NovoLOG) 100 UNIT/ML VIAL SQ SCH ×4 (07:32→21:23)
[2020-06-30] MEDS: allopurinoL 100 MG TAB PO SCH (08:54)
[2020-06-30] MEDS: GABAPENTIN 300 MG CAP PO SCH ×3 (08:55→21:22)
[2020-06-30] MEDS: LINAGLIPTIN 5 MG TABLET PO SCH (08:55)
[2020-06-30] MEDS: CLOPIDOGREL 75 MG TAB PO SCH (08:55)
[2020-06-30] MEDS: BACITRACIN ZINC 500 UNIT/GM OINT 28.4 GM TUBE TOPICAL SCH ×2 (08:55→21:23)
[2020-06-30] MEDS: ISOSORBIDE MONONITRATE ER 30 MG TAB.ER.24H PO SCH (08:55)
[2020-06-30] MEDS: PANTOPRAZOLE 40 MG/10 ML VIAL IVP SCH ×2 (08:55→21:23)
[2020-06-30] MEDS: CHOLESTYRAMINE (WITH SUGAR) 4 GM PACKET PO SCH ×2 (08:56→18:15)
[2020-06-30] MEDS: HYDROcodone/APAP 5-325MG 1 EACH TAB PO PRN ×3 (09:06→21:32)
[2020-06-30 09:14] LABS: African American GFR (CKD) 54.5 (60.0-200.0); Anion Gap 12.3 mmol/L (4.00-12.00); BUN/Creat Ratio 23.33 Ratio (12.00-20.00); Calcium 8.2 mg/dL (8.7-10.3); Carbon Dioxide 15.7 mmol/L (21.6-31.8); Non-African American GFR(CKD) 47.1 (60.0-200.0); Potassium 4.1 mmol/L (3.5-5.5)
[2020-06-30] MEDS ORDERED: CHOLESTYRAMINE (WITH SUGAR) 4 GM PACKET PO SCH (10:00)
[2020-06-30 11:44] LABS: Glucose,Whole Blood 129 mg/dL (75-99)
[2020-06-30] MEDS: HEPARIN SOD,PORK IN 0.45% NACL 25,000 UNIT in 0.45% NACL 1 250ML.BAG IV SCH (13:11)
[2020-06-30 17:20] LABS: Glucose,Whole Blood 167 mg/dL (75-99)
[2020-06-30] MEDS: traMADol 50 MG TAB PO PRN (20:08)
--- NOTE | 2020-06-30 20:49 | PN ---
PROGRESS NOTE DATE OF SERVICE: 06/30/2020 This 64-year-old woman who was admitted with nausea and vomiting also had severe dehydration. The patient was evaluated for GI bleed. The patient also had acute renal failure. The patient also had elevated D-dimer yesterday. V/Q scan was reported positive, but apparently that was an erroneous report, and the radiologist has amended the report with low probability of pulmonary embolism. However, yesterday the nurse contacted the tech was was told to follow the report available in the chart. In any case, the patient was started on heparin, which has been discontinued at this time. Dr. Bains is following the patient closely. Past medical history reviewed. REVIEW OF SYSTEMS: CARDIOVASCULAR SYSTEM: No angina, palpitations. RESPIRATORY SYSTEM: As mentioned earlier. GI: As mentioned earlier. : No dysuria or retention. NERVOUS SYSTEM: No numbness, weakness. CURRENT MEDICATIONS: Reviewed. They include Tylenol p.r.n., Elmer 5 mg q.6 p.r.n., zyloprim, Xanax, Lipitor, bacitracin, Questran, Plavix, Neurontin, NovoLog, Imdur, Tradjenta, Claritin, Narcan, Zofran, Protonix, Ultram. PHYSICAL EXAMINATION: Patient is alert, oriented x3. Pulse 78, blood pressure 113/50, respiration 18, temperature 98.2, pulse ox 98% on 2 L. HEENT: Conjunctivae normal. NECK: No jugular venous distention. CARDIOVASCULAR SYSTEM: S1, S2 muffled. RESPIRATORY SYSTEM: Breath sounds diminished at the bases. A few scattered rhonchi and crackles. ABDOMEN: Soft, obese, non-tender. No mass palpable. LEGS: No edema. No swelling. NERVOUS SYSTEM: No focal deficit. LABS: Hemoglobin 8.1. The creatinine is 1.2, which is much improved. Other labs are noted. Stool OB is negative. COVID-19 is negative. Influenza is negative. ASSESSMENT: 1. Nausea, vomiting, diarrhea; possible acute gastroenteritis with severe dehydration. 2. Rule out acute gastrointestinal bleed with blood-loss anemia. 3. Acute renal failure with acute tubular necrosis and prerenal factors. 4. Hyponatremia. 5. Increased white count, possibly reactive. 6. COVID-19 ruled out. 7. No evidence of pulmonary embolism. 8. Anemia, normocytic. 9. Increased platelets. 10.History of coronary artery disease. 11.Diabetes mellitus, type 2. 12.Hyperlipidemia. 13.History of degenerative joint disease. 14.History of left ankle surgery. 15.Gait dysfunction. 16.Cholecystectomy. 17.Remote history of nicotine dependence. 18.FULL CODE. RECOMMENDATIONS AND DISCUSSION: I recommend to continue current medications, continue with the monitoring, symptomatic treatment. Monitor renal functions closely. I also recommend gastroenterology consultation for evaluation of the GI bleed. We will monitor closely. Abdominal CT scan is noted. Guarded prognosis because of multiple complex medical issues. Further recommendations to follow. MMODL / IJN: [id number] /
[2020-06-30] MEDS: ATORVASTATIN 40 MG TAB PO SCH (21:22)
[2020-06-30] MEDS: LORATADINE 10 MG TAB PO SCH (21:23)
[2020-06-30 21:37] LABS: Glucose,Whole Blood 147 mg/dL (75-99)
--- NOTE | 2020-06-30 23:41 | CONS ---
CONSULTATION PULMONARY/CRITICAL CARE CONSULTATION: DATE OF SERVICE: 06/30/2020 This is a 64-year-old female who presented to the emergency department via EMS with chief complaint of generalized weakness and diarrhea. The patient states that for the last week or so, she has not been feeling well. She has also had excessive diarrhea and felt like she was a bit dehydrated. She thought initially she had a kidney infection and was started on ciprofloxacin for that. Because of her worsening symptoms, she decided to be evaluated. She apparently had some chills. There was no fever. She had some abdominal discomfort. It was mostly diffuse and generalized. She denied any chest pain. She denied any shortness of breath. She denied any cough. She denied any wheezing or tightness. She denied any hemoptysis. The patient apparently had a ventilation perfusion lung scan which was low probability for PE. It is unlikely the patient had a pulmonary embolism. She was started on IV heparin. I told the nurses to stop the IV heparin. Again, the patient never had any lung issues or complaints. HOME MEDICATIONS: Her home medications are reviewed. She is on Xyzal, Januvia, Imdur, nitroglycerin, aspirin, colchicine, enalapril, Uloric, Plavix, Demadex, Crestor, gabapentin and Ultram. ALLERGIES: ALLERGIES include ADHESIVE TAPE, FLOXIN AND SULFA ANTIBIOTICS. MEDICAL HISTORY: Medical history includes CAD, diabetes mellitus, hyperlipidemia, osteoarthritis and chronic kidney disease. Other medical issues include a recent ankle fracture. It is on the left side. She did have a prior history of myocardial infarction back in June of 2019. SURGICAL HISTORY: Surgical history includes appendectomy, , cholecystectomy, heart catheterization, tonsillectomy, tubal ligation, carpal tunnel surgery bilaterally, shoulder surgery and ankle reconstruction. SOCIAL HISTORY: Positive for previous tobacco use. She admits to alcohol occasionally. She denies any illicit drug use. FAMILY HISTORY: Positive for mother with CAD, ovarian cancer and diabetes. Father has a history of CAD and diabetes mellitus. She has a brother with a history of colon cancer, liver cancer, lung cancer, diabetes and brain metastases. Another brother has a history of colon cancer, lung cancer and brain metastases. She has a sister with ovarian and breast cancer with brain metastases and another sister with stomach cancer and ovarian cancer. REVIEW OF SYSTEMS: CONSTITUTIONAL: Weakness. NEUROLOGIC: Negative. HEENT: Negative. CARDIOVASCULAR: Negative. PULMONARY: Negative. GI: Nausea, vomiting and diarrhea. Dehydration. : Possible urinary tract infection. RHEUMATOLOGIC: Negative. IMMUNOLOGIC: Negative. ENDOCRINOLOGIC: Negative. DERMATOLOGIC: Negative. PHYSICAL EXAMINATION: VITAL SIGNS: Current vital signs are reviewed. Temperature is 98.2, heart rate 78, respiratory rate 18, blood pressure 113/58, mean 76, two-liter saturation 98%. GENERAL APPEARANCE: She appears in no acute distress. HEENT: Examination is unremarkable. NECK: Supple. Full range of motion. No adenopathy. Neck veins are flat. CARDIOVASCULAR: Examination reveals regular rhythm and rate. S1, S2 normal. No S3, S4 or murmur. LUNGS: Clear. Breath sounds equal. No wheezes, rhonchi or crackles. ABDOMEN: Obese. Bowel sounds are heard. EXTREMITIES: Intact. No cyanosis, clubbing or edema. SKIN: Without rash. NEUROLOGIC: Neurologic examination is nonfocal. LABS/IMAGING: Reviewed. White count 7, hemoglobin 8.1, hematocrit 25.1, platelet count 329,000. PTT is 58.1. Sodium, potassium normal. Chloride is 114. CO2 is 15. Anion gap is 12. BUN and creatinine were 28 and 1.2. Microbiology is negative. Venous Dopplers of the lower extremities were negative for DVT on the left side. A chest x-ray done on the day of admission shows no acute process. A ventilation-perfusion lung scan was amended to read low probability for acute pulmonary embolism. Abdominal and pelvic CT scan showed sigmoid diverticulosis without diverticulitis, among other things. Medications are reviewed. I have asked the nurse to discontinue the heparin. ASSESSMENT: 1. No evidence to suggest acute pulmonary embolism based on the patient's exam, symptomatology and ventilation-perfusion lung scan. 2. Weakness and dehydration secondary to nausea, vomiting and diarrhea. 3. History of coronary artery disease. 4. Diabetes mellitus. 5. Hyperlipidemia. 6. Degenerative joint disease. 7. Chronic kidney disease. 8. Hyperchloremic [id number] metabolic acidosis. 9. Recent left ankle fracture. 10.Multiple previous surgical procedures. PLAN: IV heparin can be discontinued. The patient is not having any pulmonary complaints. No additional recommendations are made. Will continue to follow. MMODL / IJN: [id number] /
[2020-07-01] MEDS: SODIUM CHLORIDE 0.9% 1,000 ML IV SCH ×3 (05:06→15:58)
[2020-07-01 06:37] LABS: Anisocytosis Slight; HCT 24.7 % (34.0-46.0); HGB 7.8 gm/dL (11.4-16.0); Hypochromasia Moderate; MCH 26.2 pg (25.0-35.0); MCHC 31.4 g/dL (31.0-37.0); MCV 83.6 fL (80.0-100.0); Mean Platelet Volume 6.8; Platelet Count 362 k/uL (150-450); Poikilocytosis Slight; RBC 2.96 m/uL (3.80-5.40); RDW 17.9 % (11.5-15.5); WBC 8.1 k/uL (3.8-10.6)
--- NOTE | 2020-07-01 07:08 | CONS ---
CONSULTATION REASON FOR CONSULTATION: Anemia and drop in hemoglobin. HISTORY OF PRESENT ILLNESS: The patient is a 64-year-old pleasant white female admitted to the hospital with nausea, vomiting, abdominal pain and diarrhea for the last 2 weeks duration. She became extremely weak and tired because of the ongoing persistent diarrhea, at which time she was having about 3 to 4 bowel movements daily. She describes the pain diffusely all over the abdomen. She was subsequently brought to the emergency room and was diagnosed with possible PE. She was started on IV heparin. At the time of admission the hospital hemoglobin was 11.5 g/dL and gradually dropped to 9.5 g/dL and hence we are consulted in regard to this issue. The patient however denies any rectal bleeding or melena. In fact in the last 2 days, the abdominal pain has significantly improved and the nausea and vomiting has resolved and she did not have any further episodes of diarrhea. She did have stool studies which were reported as negative. The patient was started on IV heparin for possible pulmonary embolism and subsequently she did have a pulmonary perfusion imaging study done this morning which showed low probability of acute pulmonary embolism and hence IV heparin has been discontinued. PAST MEDICAL HISTORY: Significant for hypertension, hyperlipidemia, diabetes mellitus, degenerative joint disease, coronary artery disease. PAST SURGICAL HISTORY: Hysterectomy, cholecystectomy. MEDICATIONS: Medications at home include Plavix, Demadex, Ultram, Januvia, Crestor, Nitrostat, levocetirizine, Imdur, Gabapentin, Uloric, Vasotec, aspirin. ALLERGIES: OFLOXACIN and SULFA. SOCIAL HISTORY: No smoking. No alcohol use. FAMILY HISTORY: Mother has coronary artery disease and diabetes as well as ovarian cancer. REVIEW OF SYSTEMS: CARDIOPULMONARY: She denies any chest pain, but she did have some shortness of breath at the time of admission to the hospital, presently resolved. GI: As mentioned above, but nausea, vomiting, and diarrhea have resolved. ENT: Vision unremarkable. CONSTITUTIONAL: No recent weight loss. No fever, chills, night sweats. HEMATOLOGY: Mild anemia. NEUROLOGY: Unremarkable. PSYCHIATRIC: Unremarkable. ENT: Vision unremarkable. PHYSICAL EXAMINATION: She appears comfortable. No apparent distress. Vital signs are stable. Blood pressure is 113/58, pulse rate is 78, temperature 98.2. HEENT: Examination unremarkable. Conjunctivae are pink. Sclerae anicteric. Oral cavity no lesions. NECK: No JVD or lymph node enlargement. CHEST: Clear to auscultation. HEART: Regular rate and rhythm. ABDOMEN: Obese. Bowel sounds are positive. No organomegaly. EXTREMITIES: No pedal edema. SKIN: No rashes. NEURO: She is alert and oriented x3. No focal deficits. LABS: WBC 7, hemoglobin 8.1, platelets normal. Basic metabolic panel is within normal limits. BUN is 38, creatinine 1.8. CRP was 21. Stool occult blood was negative. IMPRESSION: 1. Anemia with gradual drop in hemoglobin from 11 to 8.1 g/dL but clinically patient does not have any evidence of active ongoing bleeding. Stool Hemoccult was negative. The patient was on IV heparin for possible pulmonary embolism for the last 2 days but has been discontinued as V/Q scan showed low probability of pulmonary embolism. Clinically, no evidence of active bleeding. 2. Nausea, vomiting, diarrhea, probably acute gastroenteritis, resolved. 3. Acute kidney injury with elevated BUN and creatinine gradually improving. 4. History of diabetes mellitus and hypertension. RECOMMENDATION: In regard to the anemia, there is no evidence of active ongoing bleeding. We will continue to monitor closely. We will obtain iron studies, serum folate and vitamin B12 levels. Based on that, we will decide if she needs any endoscopy investigations on an outpatient basis. In the meantime, monitor CBC on a daily basis and we will follow with you closely. Thank you for this consultation. MMODL / LAURAN: [id number] /
[2020-07-01 07:11] LABS: Band Neutrophils % 7 %; Basophils # (M) 0.08 k/uL (0-0.2); Lymphocytes # (M) 0.81 k/uL (1.0-4.8); Metamyelocytes # (M) 0.73 k/uL (0); Metamyelocytes % 9 %; Monocytes # (M) 0.73 k/uL (0-1.0); Neutrophils % (M) 64 %; Nucleated Red Blood Cells 0 /100 WBC (0-0); Total Cells Counted 100
[2020-07-01 07:14] LABS: Glucose,Whole Blood 125 mg/dL (75-99)
[2020-07-01] MEDS: INSULIN ASPART (NovoLOG) 100 UNIT/ML VIAL SQ SCH ×4 (07:19→20:59)
[2020-07-01] MEDS: ISOSORBIDE MONONITRATE ER 30 MG TAB.ER.24H PO SCH (07:57)
[2020-07-01] MEDS: CLOPIDOGREL 75 MG TAB PO SCH (07:57)
[2020-07-01] MEDS: allopurinoL 100 MG TAB PO SCH (07:57)
[2020-07-01] MEDS: PANTOPRAZOLE 40 MG/10 ML VIAL IVP SCH ×2 (07:58→21:00)
[2020-07-01] MEDS: LINAGLIPTIN 5 MG TABLET PO SCH (07:58)
[2020-07-01] MEDS: GABAPENTIN 300 MG CAP PO SCH ×3 (07:58→20:58)
[2020-07-01] MEDS: BACITRACIN ZINC 500 UNIT/GM OINT 28.4 GM TUBE TOPICAL SCH ×2 (07:58→21:20)
[2020-07-01] MEDS: traMADol 50 MG TAB PO PRN ×2 (08:12→20:59)
[2020-07-01 09:43] LABS: Anion Gap 6.6 mmol/L (4.00-12.00); Calcium 8.2 mg/dL (8.7-10.3); Carbon Dioxide 19.4 mmol/L (21.6-31.8); Non-African American GFR(CKD) 58.7 (60.0-200.0); Potassium 4.2 mmol/L (3.5-5.5)
[2020-07-01] MEDS: ALPRAZolam 0.25 MG TAB PO PRN (09:46)
[2020-07-01] MEDS: CHOLESTYRAMINE (WITH SUGAR) 4 GM PACKET PO SCH ×2 (09:46→17:49)
[2020-07-01 11:36] LABS: Glucose,Whole Blood 182 mg/dL (75-99)
[2020-07-01] MEDS: HYDROcodone/APAP 5-325MG 1 EACH TAB PO PRN ×2 (12:40→17:48)
--- NOTE | 2020-07-01 14:27 | P.PN ---
Subjective Progress Note Date: 07/01/20 Principal diagnosis: Anemia and drop in hemoglobin This is a 64-year-old pleasant white female minute to the hospital with nausea, vomiting, no pain and diarrhea for the last 2 weeks duration. She became extremely weak and tired because of ongoing persistent diarrhea in which that time she was having 3-4 bowel movements daily. She described the pain diffuse over the abdomen and subsequently came to the emergency department in the meantime she was diagnosed with a possible PE and was started on a heparin drip, following further evaluation was decided that date there was not a pulmonary embolism and hence the heparin drip was discontinued. The patient's symptoms had improved. She does report a history as a child of an ulcer. She does report that she uses ibuprofen 600 mg 3 times a day as well as on aspirin daily. He is not had any recent upper endoscopies and she reports she had a colonoscopy through [facility] office at 5 years ago which she state s was normal. Her C. diff was negative. She denies any abdominal pain, nausea, or vomiting. She denies any black stools, melena, or rectal bleeding. Objective - Vital Signs Vital signs: Vital Signs Temp 98.5 F 07/01/20 11:55 Pulse 82 07/01/20 11:55 Resp 16 07/01/20 11:55 BP 119/62 07/01/20 11:55 Pulse Ox 94 L 07/01/20 11:55 Intake & Output 06/30/20 07/01/20 07/01/20 18:59 06:59 18:59 Intake Total 5276.185 0549 2200 Balance 3652.618 9492 2200 Intake: Intake, IV Titration 2420.898 6727 780 Amount Heparin Sod,Pork in 0.45% 116.629 NaCl 25,000 unit In 0.45 % NaCl 1 250ml.bag @ 18 UNITS/KG/HR 18.27 mls/hr IV .[id number] TE Rx#: [id number] Sodium Chloride 0.9% 1, 1040 1495 780 000 ml @ 130 mls/hr IV . [id number] TE Rx#:[id number] Oral 1420 Other: Voiding Method Bedpan Bedpan Bedpan Diaper Diaper Diaper Incontinent # Voids 1 2 - Exam General appearance: The patient is alert, oriented, in no acute distress. HET: Head is normocephalic and atraumatic. Conjunctiva pink. Sclera anicteric. Neck: Supple without lymphadenopathy. Trachea midline. Abdomen: Soft, obese, nontender, nondistended with bowel sounds. Extremities: Normal skin color and turgor. No pedal edema. Neurological: No focal deficits. Alert and oriented 3. - Labs CBC & Chem 7: 07/01/20 05:33 07/01/20 05:33 Labs: Abnormal Lab Results - Last 24 Hours (Table) 06/30/20 06/30/20 07/01/20 Range/Units 17:18 21:17 05:33 RBC 2.96 L (3.80-5.40) m/uL Hgb 7.8 L (11.4-16.0) gm/dL Hct 24.7 L (34.0-46.0) % RDW 17.9 H (11.5-15.5) % Lymphocytes # (Manual) 0.81 L (1.0-4.8) k/uL Metamyelocytes # (Man) 0.73 H (0) k/uL Chloride (96-109) mmol/L Carbon Dioxide (21.6-31.8) mmol/L Est GFR (CKD-EPI)NonAf (60.0-200.0) Glucose (70-110) mg/dL POC Glucose (mg/dL) 167 H 147 H (75-99) mg/dL Calcium (8.7-10.3) mg/dL 07/01/20 07/01/20 07/01/20 Range/Units 05:33 07:13 11:34 RBC (3.80-5.40) m/uL Hgb (11.4-16.0) gm/dL Hct (34.0-46.0) % RDW (11.5-15.5) % Lymphocytes # (Manual) (1.0-4.8) k/uL Metamyelocytes # (Man) (0) k/uL Chloride 115 H (96-109) mmol/L Carbon Dioxide 19.4 L (21.6-31.8) mmol/L Est GFR (CKD-EPI)NonAf 58.7 L (60.0-200.0) Glucose 122 H (70-110) mg/dL POC Glucose (mg/dL) 125 H 182 H (75-99) mg/dL Calcium 8.2 L (8.7-10.3) mg/dL Assessment and Plan Assessment: 1. Anemia with gradual drop in hemoglobin from 11-7.8 but clinically patient does not have any evidence of active ongoing bleeding. Stool Hemoccult was negative. The patient was on IV heparin for possible pulmonary embolism for the last 2 days but has been discontinued as the VQ scan showed low probability of pulmonary embolism. Clinically no evidence of active bleeding. 2. Nausea, vomiting, diarrhea, probably acute gastroenteritis, resolved. 3. Acute kidney injury with elevated BUN and creatinine gradually improving 4. History of diabetes mellitus and hypertension Plan: 1. In regard to anemia, there is no evidence of active ongoing bleeding 2. Obtain iron studies, based on results we'll decide if the patient needs any endoscopic interventions 3. Monitor CBC daily 4. Antiemetics as needed 5. We will continue to follow with you closely Thank you for this consultation The impression and plan of care has been dictated as directed. Dr. Mayela Mejia I performed a history and examination of this patient, discussed the same with the dictator. I agree with the dictator's note ,documented as a scribe. Any additional findings or plans will be noted.
--- NOTE | 2020-07-01 14:29 | P.GSHP ---
History of Present Illness H&P Date: 07/01/20 Chief Complaint: breast pain Helena is a 64 -year-old white female seen in consultation for Dr. Darron Mcgee regarding breast pain. She was last seen in October 2019 with a complaint given abnormal right breast mammogram and ultrasound. At that time she was noted to have a 4 mm posterior depth right breast lesion. No lesions of concern were identified in the left breast. Her most recent mammogram was in September 2019. Compression views of the right breast revealed a persistent 4 mm medial asymmetry. An ultrasound was performed. The ultrasound did not reveal any evidence for cystic or solid lesions of concern. It was felt this was probably benign and short-term interval follow-up was recommended. At that time she did not have any pains masses lumps or nodules in either breast. She did not have any breast pain that she was concerned about. No nipple discharge no history of any recent trauma or infection of the breast. She has not had her repeat right breast mammogram and ultrasound performed. Most recently the patient was admitted on she does not have any history of any recent trauma or infection in the breast. She does have a recent history of infection of her left foot and she was just recently discharged from wound care. 620 following an emergency room visit with a chief complaint of generalized weakness, and diarrhea. She stated that she had been feeling increasingly weak and was having increased diarrhea. She stated that she felt she had a urinary tract infection at home and started taking some antibiotics that she had in the house. Her symptoms became worse. Since hospitalization she has began to complain of bilateral breast pain greater on the right than on the left. She states it is worse when she touches her breast. It is described as a sharp and shooting pain. Family history: sister: Breast/ovarian cancer with brain metastases sister: Stomach cancer with brain metastases brother: Lung and liver cancer with brain metastases brother: Colon cancer with metastatic disease Hormonal history: Menarche: 7 miscarriage 1, breast fed negative Age of first. 24 Menopause: 38 control pills: 20 years Hormones: None Past surgical history: Cholecystectomy Appendectomy Left ankle 4 Tonsil Tubal ligation Left foot surgery. Medical history: Diabetic CHF/blockage and heart/myocardial infarction 2 Kidney disease Arthritis Gout Neuropathy Back pain Difficulty with wound healing left foot Social history: Smoke: Negative Alcohol: Rare Drugs: Negative - Constitutional Comment: Detox in [past from oxycodone and tramadol Constitutional: Denies chills, Denies fever - EENT Eyes: denies blurred vision, denies pain Ears: bilateral: decreased hearing (Decreased hearing high patches), deny: tinnitus Ears, nose, mouth and throat: Denies headache, Denies sore throat - Breasts Breasts: bilateral: as per HPI - Cardiovascular Comment: Congestive heart failure, myocardial infarction 2 Cardiovascular: Reports as per HPI - Respiratory Comment: Sleep apnea - Gastrointestinal Gastrointestinal: Denies abdominal pain, Denies diarrhea, Denies nausea, Denies vomiting - Genitourinary (Female) Genitourinary: Denies dysuria, Denies hematuria - Menstruation Menstruation: Reports postmenopausal - Musculoskeletal Comment: Osteoarthritis - Integumentary Comment: Bruises easily/thin skin - Neurological Comment: Diabetic neuropathy bilateral lower extremities - Psychiatric Psychiatric: Denies anxiety, Denies depression - Endocrine Comment: Diabetes - Hematologic/Lymphatic Comment: Easy bruising - Allergic/Immunologic Allergic/Immunologic: Reports as per HPI Past Medical History Past Medical History: Coronary Artery Disease (CAD), Diabetes Mellitus, H yperlipidemia, Osteoarthritis (OA), Renal Disease Additional Past Medical History / Comment(s): states back pain, current "creacked bone in left ankle wrapped with [place] wrap CURRENTLY USING CRUTCHES broke left ankle aug 26 2018. hurt left shoulder and is going to PT for it Last Myocardial Infarction Date:: 06/03/2019 History of Any Multi-Drug Resistant Organisms: None Reported Past Surgical History: Appendectomy, Section, Cholecystectomy, Heart Catheterization, Tonsillectomy, Tubal Ligation Additional Past Surgical History / Comment(s): carpal tunnel both wris ts,shoulder surgery, ankle reconstruction. Past Anesthesia/Blood Transfusion Reactions: No Reported Reaction Past Psychological History: No Psychological Hx Reported Smoking Status: Former smoker Past Alcohol Use History: Occasional Additional Past Alcohol Use History / Comment(s): Started smoking in 1967, quit smoking in 1977, smoked 2ppd Past Drug Use History: None Reported - Past Family History Mother Family Medical History: Cancer, Coronary Artery Disease (CAD), Diabetes Mellitus Additional Family Medical History / Comment(s): ovarian cancer Father Family Medical History: Coronary Artery Disease (CAD), Diabetes Mellitus Brother(s) Additional Family Medical History / Comment(s): Brother #1 (Bill) colon cancer, liver cancer, lung cancer, diabetic, brain mets. Brother #2 (Elie) colon cancer, lung cancer with brain mets Sister(s) Family Medical History: Fibromyalgia Additional Family Medical History / Comment(s): Sister #1 (Desi) ovarian cancer and breast cancer with brain mets. Sister #2 (Celsa) stomach cancer, ovarian cancer Medications and Allergies Home Medications Medication Instructions Recorded Confirmed Type Levocetirizine Dihydrochloride 5 mg PO HS 12/21/17 06/28/20 History sitaGLIPtin [Januvia] 100 mg PO QAM 12/21/17 06/28/20 History Isosorbide Mononitrate ER [Imdur] 30 mg PO QAM 06/29/19 06/28/20 History Nitroglycerin Sl Tabs [Nitrostat] 0.4 mg SUBLINGUAL Q5M PRN 06/29/19 06/28/20 History Rosuvastatin [Crestor] 20 mg PO HS #30 tab 07/01/19 06/28/20 Rx Aspirin 81 mg PO QAM 11/02/19 06/28/20 History Colchicine [Colcrys] 0.6 mg PO BID 11/02/19 06/28/20 History Enalapril Maleate [Vasotec] 2.5 mg PO QAM 11/02/19 06/28/20 History Febuxostat [Uloric] 80 mg PO QAM 11/02/19 06/28/20 History Gabapentin 600 mg PO TID #3 tab 11/30/19 06/28/20 Rx traMADol HCl [Ultram] 50 mg PO QID PRN #4 tab 11/30/19 06/28/20 Rx Clopidogrel [Plavix] 75 mg PO DAILY 06/28/20 06/28/20 History Torsemide [Demadex] 10 mg PO BID 06/28/20 06/28/20 History Allergies Allergy/AdvReac Type Severity Reaction Status Date / Time adhesive Allergy Rash/Hives Verified 06/28/20 11:32 ofloxacin [From Floxin] Allergy Anaphylaxis Verified 06/28/20 11:32 Sulfa (Sulfonamide Allergy Anaphylaxis Verified 06/28/20 11:32 Antibiotics) Surgical - Exam Vital Signs Temp Pulse Resp BP Pulse Ox 97.5 F L 79 16 117/68 97 06/28/20 07:51 06/28/20 07:51 06/28/20 07:51 06/28/20 07:51 06/28/20 07:51 BMI 38.4 - General obese - Eyes normal ocular movement - ENT normal nares - Neck trachea midline - Respiratory normal respiratory effort, clear to auscultation - Cardiovascular Rhythm: regular Heart Sounds: normal: S1, S2 - Abdomen No guarding or rebound Abdomen: soft, bowel sounds - Integumentary Achymosis upper extremities Bilateral +2 pitting edema lower extremities swelling greater on the left than on the right - Neurologic no disoriented, no combative - Musculoskeletal Patient sitting in chair - Psychiatric oriented to time, oriented to person, oriented to place, speech is normal, memory intact Breast examination: Pravachol and 40 2C Inspection: Ptosis bilateral grade 3 Palpation: Right breast: Fibrocystic changes, slightly swollen and tender to palpation, no dominant masses or nodules of concern Right axilla: Positive shotty adenopathy Left breast: Fibrocystic changes no dominant masses or nodules of concern Left axilla: No adenopathy of concern Results On the patient had the following radiographic studies: computed tomography scan abdomen and pelvis which revealed sigmoid diverticulosis without diverticulitis, lumbar spondylitic changes, old L5 compression fracture Venous Doppler: No evidence of DVT Pulmonary perfusion scan: No acute pulmonary embolism Shoulder x-ray: No acute fracture - Labs 07/01/20 05:33 07/01/20 05:33 Abnormal Lab Results - Last 24 Hours (Table) 06/30/20 06/30/20 07/01/20 Range/Units 17:18 21:17 05:33 RBC 2.96 L (3.80-5.40) m/uL Hgb 7.8 L (11.4-16.0) gm/dL Hct 24.7 L (34.0-46.0) % RDW 17.9 H (11.5-15.5) % Lymphocytes # (Manual) 0.81 L (1.0-4.8) k/uL Metamyelocytes # (Man) 0.73 H (0) k/uL Chloride (96-109) mmol/L Carbon Dioxide (21.6-31.8) mmol/L Est GFR (CKD-EPI)NonAf (60.0-200.0) Glucose (70-110) mg/dL POC Glucose (mg/dL) 167 H 147 H (75-99) mg/dL Calcium (8.7-10.3) mg/dL 07/01/20 07/01/20 07/01/20 Range/Units 05:33 07:13 11:34 RBC (3.80-5.40) m/uL Hgb (11.4-16.0) gm/dL Hct (34.0-46.0) % RDW (11.5-15.5) % Lymphocytes # (Manual) (1.0-4.8) k/uL Metamyelocytes # (Man) (0) k/uL Chloride 115 H (96-109) mmol/L Carbon Dioxide 19.4 L (21.6-31.8) mmol/L Est GFR (CKD-EPI)NonAf 58.7 L (60.0-200.0) Glucose 122 H (70-110) mg/dL POC Glucose (mg/dL) 125 H 182 H (75-99) mg/dL Calcium 8.2 L (8.7-10.3) mg/dL Diabetes panel 07/01/20 Range/Units 05:33 Sodium 141 (135-145) mmol/L Potassium 4.2 (3.5-5.5) mmol/L Chloride 115 H (96-109) mmol/L Carbon Dioxide 19.4 L (21.6-31.8) mmol/L BUN 18.0 (9.0-27.0) mg/dL Creatinine 1.0 (0.6-1.5) mg/dL Glucose 122 H (70-110) mg/dL Calcium 8.2 L (8.7-10.3) mg/dL Calcium panel 07/01/20 Range/Units 05:33 Calcium 8.2 L (8.7-10.3) mg/dL Pituitary panel 07/01/20 Range/Units 05:33 Sodium 141 (135-145) mmol/L Potassium 4.2 (3.5-5.5) mmol/L Chloride 115 H (96-109) mmol/L Carbon Dioxide 19.4 L (21.6-31.8) mmol/L BUN 18.0 (9.0-27.0) mg/dL Creatinine 1.0 (0.6-1.5) mg/dL Glucose 122 H (70-110) mg/dL Calcium 8.2 L (8.7-10.3) mg/dL Adrenal panel 07/01/20 Range/Units 05:33 Sodium 141 (135-145) mmol/L Potassium 4.2 (3.5-5.5) mmol/L Chloride 115 H (96-109) mmol/L Carbon Dioxide 19.4 L (21.6-31.8) mmol/L BUN 18.0 (9.0-27.0) mg/dL Creatinine 1.0 (0.6-1.5) mg/dL Glucose 122 H (70-110) mg/dL Calcium 8.2 L (8.7-10.3) mg/dL Assessment and Plan Assessment: Impression: 1. dehydration with acute kidney injury 2. Congestive heart failure 3. Diabetes 4. Diarrhea 5. Neuropathy 6. Gout 7. Back pain 8. Osteoarthritis 9. Bilateral breast pain/lesion warranting biopsy at this time 10. Bilateral ankle swelling greater on the left than the right recently discharged from wound clinic related to multiple wounds in the left foot Plan: 1. Treatment of medical conditions, if patient has third spaced fluids and this is resolved I believe that this fullness in her breast may decrease in the discomfort decreases well 2. She is due for a right breast mammogram and ultrasound which I would recommend at this time 3. Follow-up in clinic with Dr. Mcgee after discharge and radiographic studies performed Thank you for allowing me to be involved in the care of this patient. Encounter 40 minutes, > 50% of time in planning and counselling
[2020-07-01] MEDS: ONDANSETRON 4 MG/2 ML VIAL IVP PRN (16:30)
--- NOTE | 2020-07-01 16:32 | PN ---
PROGRESS NOTE PULMONARY/CRITICAL CARE PROGRESS NOTE: DATE OF SERVICE: 07/01/2020 This is a patient who we saw yesterday in consultation. She had a very low probability V/Q scan. The report of the V/Q scan was done by the radiologist, was incorrect and admitted sound almost like the patient did have an acute pulmonary embolism. I did speak to the radiologist, Dr. Abel, who amended the report. Hence, the patient's heparin was recommended to be discontinued. She came into the hospital with complaints of weakness and dehydration secondary to nausea, vomiting, and diarrhea. She did not had any pulmonary complaints including shortness of breath, chest pain, cough, or any other pulmonary complaints for that matter. She is feeling well. The heparin was discontinued yesterday. She states today that she may be discharged home as mentioned to a rehab facility, although she does not know when that might be. She does have a history of CAD, diabetes, hyperlipidemia, DJD, chronic kidney disease, hyperchloremic non-anion gap metabolic acidosis, recent left ankle fracture, and multiple previous surgical procedures. She has no particular complaints today other than weakness. Current vital signs are reviewed, temperature is 98.5, heart rate 82, respiratory rate 16, blood pressure 119/62 mean 81, room air saturation 94%. Appears in no acute distress. HEENT: Examination is grossly unremarkable. NECK: Supple, full range of motion. Neck veins are flat. CARDIOVASCULAR: Examination reveals distant heart sounds. Heart rate 82. S1, S2 normal. LUNGS: Reveal clear breath sounds equal. ABDOMEN: Obese, bowel sounds are heard. EXTREMITIES: Intact. Slight edema. SKIN: Without rash. NEUROLOGIC: Examination is nonfocal. LABS: Reviewed. White count 8.1, hemoglobin 7.8, hematocrit 24.7, platelet count 362,000. PTT is 22.4. Sodium, potassium normal, chloride is 115, CO2 is 19, anion gap is 6. BUN and creatinine were 18 and 1.0. These electrolytes are still consistent with a hyperchloremic, non-anion gap metabolic acidosis. This is likely secondary to saline administration. Calcium was 8.2. Microbiology is currently negative. All the x-rays and scans have been reviewed including the venous Dopplers and the ventilation-perfusion lung scan. Medications are reviewed. ASSESSMENT: 1. No evidence to suggest acute pulmonary embolism based on the patient's exam, symptomatology, and ventilation-perfusion lung scan. 2. Weakness and dehydration, with a hyperchloremic non-anion gap metabolic acidosis, secondary to nausea, vomiting and diarrhea. 3. History of coronary artery disease. 4. Diabetes mellitus. 5. Hyperlipidemia. 6. Degenerative joint disease. 7. Chronic kidney disease. 8. Recent left ankle fractures. 9. Multiple previous surgical procedures. PLAN: The heparin was discontinued. Additional recommendations and suggestions are forthcoming. Prognosis is guarded. Will follow the patient only as needed. MMODL / IJN: [id number] /
[2020-07-01 17:13] LABS: Glucose,Whole Blood 154 mg/dL (75-99)
[2020-07-01 20:18] LABS: Glucose,Whole Blood 193 mg/dL (75-99)
[2020-07-01] MEDS: ATORVASTATIN 40 MG TAB PO SCH (20:59)
[2020-07-01] MEDS: LORATADINE 10 MG TAB PO SCH (20:59)
--- NOTE | 2020-07-01 22:04 | PN ---
PROGRESS NOTE DATE OF SERVICE: 07/01/2020 This 64-year-old woman who was admitted with nausea, diarrhea, had possible acute gastritis, severe dehydration. Patient also had acute gastrointestinal bleed which was evaluated by Dr. Mejia. The patient also had elevated D-dimer. V/Q scan was initially reported as positive, which was possibly narrowed and currently patient is off anticoagulation, being closely monitored at this time. Patient also complaining of bilateral breast pains. Dr. Delgado has seen the patient and recommended right breast mammogram and ultrasound and outpatient followup. No chest pain. No palpitations. No fever. REVIEW OF SYSTEMS: Cardiovascular systems: No angina or palpitations. Respirations: As mentioned earlier. GI as mentioned earlier. : No dysuria. NERVOUS SYSTEM: No numbness or weakness. CURRENT MEDICATIONS: Reviewed and include: 1. Tylenol. 2. [place]. 3. Zyloprim. 4. Xanax. 5. Lipitor. 6. Questran. 7. Neurontin. 8. Tradjenta. 9. Claritin. 10.Other medications reviewed. 11.Doses reviewed. PHYSICAL EXAM: Patient is alert, oriented x3. Pulse 82. Blood pressure 119/62, respirations 16, temperature 98.4, pulse ox 94% on room air. HEENT: Conjunctivae normal. NECK: No JVD. CARDIOVASCULAR: S1. S2 muffled. RESPIRATORY SYSTEM: Breath sounds diminished at the bases. No rhonchi. No crackles. ABDOMEN: Soft, nontender. No mass palpable. LEGS are no edema. No swelling. NERVOUS SYSTEM: No focal deficits. Examination of the breast, minimally tender. LABS: Hemoglobin 7.8, and CO2 is 19.4. Other labs are noted. ASSESSMENT: 1. Nausea, vomiting, diarrhea with possible acute gastroenteritis, severe dehydration. 2. Possible acute gastrointestinal bleed with acute blood loss anemia. 3. Acute renal failure with acute tubular necrosis and prerenal factors. 4. Hyponatremia. 5. Increased WBC, possibly reactive. 6. COVID-19 ruled out. 7. No evidence of pulmonary embolism. 8. Anemia, normocytic. 9. Increased platelets. 10.History of coronary artery disease. 11.Diabetes mellitus type 2. 12.Hyperlipidemia. 13.History of degenerative joint disease. 14.History of left ankle surgery. 15.Gait dysfunction. 16.History of cholecystectomy. 17.Remote history of nicotine dependence. 18.FULL CODE. RECOMMENDATIONS AND DISCUSSION: Recommend to continue current medications, management and symptomatic treatment. Otherwise, at this time, repeat labs. Closely follow with Gastroenterology. Guarded prognosis because of multiple complex medical issues and further recommendations to follow. MMODL / IJN: [id number] /
[2020-07-02] MEDS: ALPRAZolam 0.25 MG TAB PO PRN ×2 (00:43→23:18)
[2020-07-02] MEDS: HYDROcodone/APAP 5-325MG 1 EACH TAB PO PRN ×2 (00:43→10:25)
[2020-07-02] MEDS: traMADol 50 MG TAB PO PRN ×2 (03:46→17:18)
[2020-07-02 05:28] LABS: Anisocytosis Slight; Basophils # (A) 0.1 k/uL (0-0.2); Basophils % (A) 1 %; Eosinophils # (A) 0.1 k/uL (0-0.7); Eosinophils % (A) 1 %; Hypochromasia Moderate; Lymphocytes # (A) 1.5 k/uL (1.0-4.8); Lymphocytes % (A) 19 %; MCH 26.8 pg (25.0-35.0); MCV 83.8 fL (80.0-100.0); Monocytes # (A) 0.8 k/uL (0-1.0); Monocytes % (A) 10 %; Neutrophils # (A) 5.2 k/uL (1.3-7.7); Neutrophils % (A) 67 %; Platelet Count 320 k/uL (150-450); Poikilocytosis Slight; RBC 2.98 m/uL (3.80-5.40); RDW 18.4 % (11.5-15.5); WBC 7.7 k/uL (3.8-10.6)
[2020-07-02 06:04] LABS: Reticulocyte % 3.4 % (0.5-2.0)
[2020-07-02 07:35] LABS: Glucose,Whole Blood 146 mg/dL (75-99)
[2020-07-02] MEDS: CLOPIDOGREL 75 MG TAB PO SCH (08:07)
[2020-07-02] MEDS: allopurinoL 100 MG TAB PO SCH (08:07)
[2020-07-02] MEDS: PANTOPRAZOLE 40 MG/10 ML VIAL IVP SCH ×2 (08:07→20:59)
[2020-07-02] MEDS: ISOSORBIDE MONONITRATE ER 30 MG TAB.ER.24H PO SCH (08:07)
[2020-07-02] MEDS: GABAPENTIN 300 MG CAP PO SCH ×3 (08:07→20:58)
[2020-07-02] MEDS: INSULIN ASPART (NovoLOG) 100 UNIT/ML VIAL SQ SCH ×4 (08:07→21:40)
[2020-07-02] MEDS: LINAGLIPTIN 5 MG TABLET PO SCH (08:08)
[2020-07-02] MEDS: BACITRACIN ZINC 500 UNIT/GM OINT 28.4 GM TUBE TOPICAL SCH ×2 (08:08→20:59)
[2020-07-02 09:27] LABS: % Iron Saturation 17.9 (12.00-45.00)
[2020-07-02] MEDS: CHOLESTYRAMINE (WITH SUGAR) 4 GM PACKET PO SCH ×2 (10:24→17:18)
[2020-07-02 11:39] LABS: Folate, Serum 4.5 ng/mL
[2020-07-02 12:24] LABS: Glucose,Whole Blood 224 mg/dL (75-99)
[2020-07-02 12:53] LABS: Ferritin 341.4 ng/mL (10.0-291.0)
--- NOTE | 2020-07-02 15:53 | P.PN ---
Subjective Progress Note Date: 07/02/20 Principal diagnosis: Anemia and drop in hemoglobin This is a 64-year-old pleasant white female minute to the hospital with nausea, vomiting, no pain and diarrhea for the last 2 weeks duration. She became extremely weak and tired because of ongoing persistent diarrhea in which that time she was having 3-4 bowel movements daily. She described the pain diffuse over the abdomen and subsequently came to the emergency department in the meantime she was diagnosed with a possible PE and was started on a heparin drip, following further evaluation was decided that date there was not a pulmonary embolism and hence the heparin drip was discontinued. The patient's symptoms had improved. She does report a history as a child of an ulcer. She does report that she uses ibuprofen 600 mg 3 times a day as well as on aspirin daily. He is not had any recent upper endoscopies and she reports she had a colonoscopy through [facility] office at 5 years ago which she state s was normal. Her C. diff was negative. She denies any abdominal pain, nausea, or vomiting. She denies any black stools, melena, or rectal bleeding. Hematology has been consulted, patient is known to them. Objective - Vital Signs Vital signs: Vital Signs Temp 98.0 F 07/02/20 12:39 Pulse 85 07/02/20 12:39 Resp 16 07/02/20 15:32 BP 109/56 07/02/20 12:39 Pulse Ox 93 L 07/02/20 12:39 Intake & Output 07/01/20 07/02/20 07/02/20 18:59 06:59 18:59 Intake Total 2200 490 950 Balance 2200 490 950 Weight 106 kg 106 kg Intake: Intake, IV Titration 780 Amount Sodium Chloride 0.9% 1, 780 000 ml @ 130 mls/hr IV . [id number] [facility] Rx#:[id number] Oral 1420 490 950 Other: Voiding Method Bedpan Bedpan Bedpan # Voids 2 1 1 - Exam General appearance: The patient is alert, oriented, in no acute distress. HET: Head is normocephalic and atraumatic. Conjunctiva pink. Sclera anicteric. Neck: Supple without lymphadenopathy. Trachea midline. Abdomen: Soft, obese, nontender, nondistended with bowel sounds. Extremities: Normal skin color and turgor. No pedal edema. Neurological: No focal deficits. Alert and oriented 3. - Labs CBC & Chem 7: 07/02/20 04:30 07/01/20 05:33 Labs: Abnormal Lab Results - Last 24 Hours (Table) 07/01/20 07/01/20 07/02/20 Range/Units 17:11 20:17 04:30 RBC 2.98 L (3.80-5.40) m/uL Hgb 8.0 L (11.4-16.0) gm/dL Hct 25.0 L (34.0-46.0) % RDW 18.4 H (11.5-15.5) % Retic Count 3.4 H (0.5-2.0) % POC Glucose (mg/dL) 154 H 193 H (75-99) mg/dL Iron (50-170) ug/dL Ferritin (10.0-291.0) ng/mL 07/02/20 07/02/20 07/02/20 Range/Units 04:30 07:27 12:22 RBC (3.80-5.40) m/uL Hgb (11.4-16.0) gm/dL Hct (34.0-46.0) % RDW (11.5-15.5) % Retic Count (0.5-2.0) % POC Glucose (mg/dL) 146 H 224 H (75-99) mg/dL Iron 41 L (50-170) ug/dL Ferritin 341.4 H (10.0-291.0) ng/mL Assessment and Plan Assessment: 1. Anemia with gradual drop in hemoglobin from 11-7.8 but clinically patient does not have any evidence of active ongoing bleeding. Stool Hemoccult was neg ative. The patient was on IV heparin for possible pulmonary embolism for the last 2 days but has been discontinued as the VQ scan showed low probability of pulmonary embolism. Clinically no evidence of active bleeding. 2. Nausea, vomiting, diarrhea, probably acute gastroenteritis, resolved. 3. Acute kidney injury with elevated BUN and creatinine gradually improving 4. History of diabetes mellitus and hypertension Plan: 1. In regard to anemia, there is no evidence of active ongoing bleeding 2. Iron studies 3. Monitor CBC daily 4. Antiemetics as needed 5. Hematology is on consult, will defer to them for further anemia workup 6. No endoscopic intervention is indicated at this time. 5. We will sign off at this time, please do not hesitate to call us with any future concerns. Thank you for this consultation The impression and plan of care has been dictated as directed. Dr. Mayela Mejia I performed a history and examination of this patient, discussed the same with the dictator. I agree with the dictator's note ,documented as a scribe. Any additional findings or plans will be noted.
--- NOTE | 2020-07-02 16:49 | CDI ---
Documentation Clarification Form Date: 07/02/2020 04:26:04 PM From: Huong Sutherland RN, CCDS 5 Admit Date: 06/28/2020 11:12:00 AM Patient Name: Helena Edwards Visit Number: [id number] Discharge Date: ATTENTION: The Clinical Documentation Specialists (CDI) and [facility] Coding Staff appreciate your assistance in clarifying documentation. Please respond to the clarification below the line at the bottom and electronically sign. The CDI & [facility] Coding staff will review the response and follow-up if needed. Please note: Queries are made part of the Legal Health Record. If you have any questions, please contact the author of this message via ITS. Dr. Robin Bains CKD is documented in consult and subsequent progress notes starting on 07/01. Please provide further specificity of the stage of CKD if known. History/Risk Factors: Coronary artery disease, Diabetes Mellitus, Chronic kidney disease, Clinical Indicators: 64-year-old female present to ED on 11/28 via [place] with complaint of generalized weakness and diarrhea for past week. She felt like she was a bit dehydrated. 06/30 Vital signs 113/58 78 18 982 98 % 2/L NC 11/23/19 BUN 35, CR 1.21, GFR 47 06/28/20 BUN 41, CR 2.03, GFR 25 06/29/20 BUN 38, CR 1.8, GFR 28.8 07/01/20 BUN 18.0, CR 1.0, GFR 58.7 Treatment: Monitor Labs: BUN, CR, Lytes .9NS 1,000 mls bolus 06/28 In order to capture the severity of condition, please clarify the stage of the CKD, if known: CKD Stage 1 (GFR > 90) CKD Stage 2 (GFR 60-89) CKD Stage 3 (GFR 30-59) CKD Stage 4 (GFR 15-29) Other, please specify Unable to determine (Last Revision: November 2019) Ask the primary. 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
[2020-07-02 17:10] LABS: Glucose,Whole Blood 188 mg/dL (75-99)
--- NOTE | 2020-07-02 17:27 | PN ---
PROGRESS NOTE DATE OF SERVICE: 07/02/2020 This is a 64-year-old woman who was admitted with multiple medical problems, nausea, vomiting, possible acute gastroenteritis, being evaluated for anemia as well. The patient also had a suspected pulmonary embolism which was not evident in the V/Q scan. The patient is off anticoagulation. The patient is complaining of severe weakness. The patient also had muscle weakness as well. The patient was previously into rehab, according to her. Currently, the patient has significant weakness. Abdominal, pelvis CAT scan was noted. Dr. Mejia has seen the patient and recommending possible Hematology consultation. The hemoglobin has gradually dropped from 11 to 7. PAST MEDICAL HISTORY: Reviewed. REVIEW OF SYSTEMS: CARDIOVASCULAR SYSTEM: No angina. RESPIRATION: As mentioned earlier. GI: As mentioned earlier. : As mentioned earlier. NERVOUS SYSTEM: As mentioned earlier. CURRENT MEDICATIONS: Reviewed and include: 1. Tylenol. 2. Hopkins. 3. Zyloprim. 4. Xanax. 5. Lipitor. 6. Bacitracin. 7. Questran. 8. Plavix. 9. Neurontin. 10.NovoLog. 11.Imdur. 12.Tradjenta. 13.Claritin. 14.Narcan. 15.Nitrostat. 16.Zofran. 17.Protonix. 18.Ultram. PHYSICAL EXAM: Patient is alert and oriented x2. Pulse is 85, blood pressure 100/56, respirations 16, temperature 98 degrees, pulse ox 98% on room. HEENT: Conjunctivae normal. NECK: No jugular venous distension. CARDIOVASCULAR SYSTEM: S1, S2, muffled. RESPIRATORY: Breath sounds diminished at the bases, no rhonchi, no crackles. ABDOMEN: Soft, obese, nontender. LEGS: No edema, no swelling. NERVOUS SYSTEM: Diffusely weak and significant wasting of the proximal muscles present. LABS: WBC 7.6, hemoglobin is 8 and the iron levels with ferritin are 341 and the total iron level is 41, which is slightly low. ASSESSMENT: 1. Nausea, vomiting, diarrhea with possible acute gastroenteritis, severe dehydration present on admission. 2. Anemia, GI bleed unlikely because according to GI. 3. Possible iron deficient anemia of undetermined etiology, possibly nutritional. 4. Acute renal failure with acute tubular necrosis and prerenal factors. 5. Hyponatremia. 6. Increased WBC, possibly reactive. 7. COVID-19 ruled out. 8. No evidence of pulmonary embolism. 9. Anemia, normocytic. 10.Increased platelets. 11.History of coronary artery disease. 12.Diabetes mellitus type 2. 13.History of DJD. 14.History of left ankle surgery. 15.Gait dysfunction. 16.History of cholecystectomy. 17.Remote history of nicotine dependence. 18.FULL CODE. RECOMMENDATION: Recommend to continue current medications, symptomatic treatment. Otherwise at this time, I would recommend continue with current medications, continue with evaluations and Hematology, Oncology evaluation for evaluation of anemia, PT, OT evaluation, possible ECF rehab. Prognosis extremely guarded, which I discussed at length with the patient, who understands and further recommendations to follow. MMODL / IJN: [id number] /
--- NOTE | 2020-07-02 18:08 | P.CONS ---
History of Present Illness - Reason for Consult Consult date: 07/02/20 anemia Requesting physician: Lynn Duggan - Chief Complaint N,V,D - History of Present Illness Ms. Edwards is a very pleasant female we have been asked to see re: anemia. Pt states she has been anemic her whole life. She has had B12, B3, vit and iron supplementation in the past, she has been on epo with Nephrology for anemia of CKD. She does bruise very easy and had extensive work up with Dr. Beckford in 2017, no coagulopathy or bleeding disorders diagnosed, felt to be r/t aspirin and plavix use. Pt is currently denying any bleeding. She had a colonoscopy about 3 years ago. SHe is having bilateral breast pain that she describes like "bees stinging" her, she has been seen by Dr. Moran Review of Systems 10 point ROS is negative except as stated in HPI Past Medical History Past Medical History: Coronary Artery Disease (CAD), Diabetes Mellitus, Hyperlipidemia, Osteoarthritis (OA), Renal Disease Additional Past Medical History / Comment(s): states back pain, current "creacked bone in left ankle wrapped with [place] wrap CURRENTLY USING CRUTCHES broke left ankle aug 26 2018. hurt left shoulder and is going to PT for it Last Myocardial Infarction Date:: 06/03/2019 History of Any Multi-Drug Resistant Organisms: None Reported Past Surgical History: Appendectomy, Section, Cholecystectomy, Heart Catheterization, Tonsillectomy, Tubal Ligation Additional Past Surgical History / Comment(s): carpal tunnel both wrists,shoulder surgery, ankle reconstruction. Past Anesthesia/Blood Transfusion Reactions: No Reported Reaction Past Psychological History: No Psychological Hx Reported Smoking Status: Former smoker Past Alcohol Use History: Occasional Additional Past Alcohol Use History / Comment(s): Started smoking in 1967, quit smoking in 1977, smoked 2ppd Past Drug Use History: None Reported - Past Family History Mother Family Medical History: Cancer, Coronary Artery Disease (CAD), Diabetes Mellitus Additional Family Medical History / Comment(s): ovarian cancer Father Family Medical History: Coronary Artery Disease (CAD), Diabetes Mellitus Brother(s) Additional Family Medical History / Comment(s): Brother #1 (Adam) colon cancer, liver cancer, lung cancer, diabetic, brain mets. Brother #2 (Elie) colon cancer, lung cancer with brain mets Sister(s) Family Medical History: Fibromyalgia Additional Family Medical History / Comment(s): Sister #1 (Desi) ovarian cancer and breast cancer with brain mets. Sister #2 (Celsa) stomach cancer, ovarian cancer Medications and Allergies Home Medications Medication Instructions Recorded Confirmed Type Levocetirizine Dihydrochloride 5 mg PO HS 12/21/17 06/28/20 History sitaGLIPtin [Januvia] 100 mg PO QAM 12/21/17 06/28/20 History Isosorbide Mononitrate ER [Imdur] 30 mg PO QAM 06/29/19 06/28/20 History Nitroglycerin Sl Tabs [Nitrostat] 0.4 mg SUBLINGUAL Q5M PRN 06/29/19 06/28/20 History Rosuvastatin [Crestor] 20 mg PO HS #30 tab 07/01/19 06/28/20 Rx Aspirin 81 mg PO QAM 11/02/19 06/28/20 History Colchicine [Colcrys] 0.6 mg PO BID 11/02/19 06/28/20 History Enalapril Maleate [Vasotec] 2.5 mg PO QAM 11/02/19 06/28/20 History Febuxostat [Uloric] 80 mg PO QAM 11/02/19 06/28/20 History Gabapentin 600 mg PO TID #3 tab 11/30/19 06/28/20 Rx traMADol HCl [Ultram] 50 mg PO QID PRN #4 tab 11/30/19 06/28/20 Rx Clopidogrel [Plavix] 75 mg PO DAILY 06/28/20 06/28/20 History Torsemide [Demadex] 10 mg PO BID 06/28/20 06/28/20 History Allergies Allergy/AdvReac Type Severity Reaction Status Date / Time adhesive Allergy Rash/Hives Verified 06/28/20 11:32 ofloxacin [From Floxin] Allergy Anaphylaxis Verified 06/28/20 11:32 Sulfa (Sulfonamide Allergy Anaphylaxis Verified 06/28/20 11:32 Antibiotics) Physical Exam Vitals: Vital Signs Temp Pulse Resp BP Pulse Ox 07/02/20 16:04 18 07/02/20 15:32 16 07/02/20 12:39 98.0 F 85 16 109/56 93 L 07/02/20 06:50 84 18 07/02/20 05:00 97.9 F 84 18 128/67 95 07/01/20 19:42 98.0 F 88 20 124/61 92 L Intake and Output 07/02/20 07/02/20 07/02/20 06:59 14:59 22:59 Intake Total 290 950 Balance 290 950 Intake: Oral 290 950 Other: Voiding Method Bedpan Bedpan # Voids 1 4 1 Weight 106 kg 106 kg - Constitutional General appearance: cooperative, no acute distress, obese - EENT Eyes: anicteric sclerae, EOMI ENT: hearing grossly normal, normal oropharynx - Neck Neck: no lymphadenopathy - Respiratory Respiratory: bilateral: CTA - Cardiovascular Rhythm: regular Heart sounds: normal: S1, S2 Abnormal Heart Sounds: no systolic murmur, no diastolic murmur, no rub, no S3 Gallop, no S4 Gallop, no click, no other leg Peripheral Edema: bilateral: None - Gastrointestinal General gastrointestinal: no absent bowel sounds, no decreased bowel sounds, no distended, no hepatomegaly, no hyperactive bowel sounds, normal bowel sounds, no organomegaly, no rigid, no scaphoid, soft, no splenomegaly, no tenderness, no umbilical hernia, no ventral hernia - Neurologic Neurologic: CNII-XII intact - Musculoskeletal Musculoskeletal: generalized weakness, strength equal bilaterally - Psychiatric Psychiatric: A&O x's 3, appropriate affect, intact judgment & insight Bilateral breast exam fibrous breast tissue, tender at 12 O'clock of the right breast and the inferior aspect of the left. Results CBC & Chem 7: 07/02/20 04:30 07/01/20 05:33 Labs: Abnormal Lab Results - Last 24 Hours (Table) 07/01/20 07/02/20 07/02/20 Range/Units 20:17 04:30 04:30 RBC 2.98 L (3.80-5.40) m/uL Hgb 8.0 L (11.4-16.0) gm/dL Hct 25.0 L (34.0-46.0) % RDW 18.4 H (11.5-15.5) % Retic Count 3.4 H (0.5-2.0) % POC Glucose (mg/dL) 193 H (75-99) mg/dL Iron 41 L (50-170) ug/dL Ferritin 341.4 H (10.0-291.0) ng/mL 07/02/20 07/02/20 07/02/20 Range/Units 07:27 12:22 17:07 RBC (3.80-5.40) m/uL Hgb (11.4-16.0) gm/dL Hct (34.0-46.0) % RDW (11.5-15.5) % Retic Count (0.5-2.0) % POC Glucose (mg/dL) 146 H 224 H 188 H (75-99) mg/dL Iron (50-170) ug/dL Ferritin (10.0-291.0) ng/mL Comments: VQ scan report reviewed CT scan - abdomen: report reviewed CT scan - pelvis: report reviewed Assessment and Plan (1) Anemia in chronic kidney disease Narrative/Plan: Recommend pt get back on track with her iron and infusions and epo injections through her Sheet Roller Operator. Anemia work up ordered Transfuse for Hgb<7 unless symptomatic Current Visit: Yes Status: Chronic Priority: Medium Code(s): N18.9 - CHRONIC KIDNEY DISEASE, UNSPECIFIED; D63.1 - ANEMIA IN CHRONIC KIDNEY DISEASE SNOMED Code(s): 116594163 Plan: Pt will f/u re: breast pain as prescribed by Dr. Moran
[2020-07-02 20:37] LABS: Glucose,Whole Blood 126 mg/dL (75-99)
[2020-07-02] MEDS: ONDANSETRON 4 MG/2 ML VIAL IVP PRN (20:57)
[2020-07-02] MEDS: ATORVASTATIN 40 MG TAB PO SCH (20:58)
[2020-07-02] MEDS: LORATADINE 10 MG TAB PO SCH (20:58)
[2020-07-03] MEDS: HYDROcodone/APAP 5-325MG 1 EACH TAB PO PRN ×2 (00:17→08:48)
[2020-07-03] MEDS ORDERED: ONDANSETRON 4 MG/2 ML VIAL IVP PRN (02:10)
[2020-07-03] MEDS ORDERED: NALOXONE 0.4 MG/ML 1 ML VIAL IV PRN (02:10)
[2020-07-03 05:11] VITALS: BP 105/56; PULSE 94; RESP 17; TEMP 98.4
[2020-07-03 07:12] LABS: Glucose,Whole Blood 149 mg/dL (75-99)
[2020-07-03] MEDS: INSULIN ASPART (NovoLOG) 100 UNIT/ML VIAL SQ SCH ×2 (08:32→12:39)
[2020-07-03] MEDS: allopurinoL 100 MG TAB PO SCH (08:33)
[2020-07-03] MEDS: PANTOPRAZOLE 40 MG/10 ML VIAL IVP SCH (08:33)
[2020-07-03] MEDS: LINAGLIPTIN 5 MG TABLET PO SCH (08:33)
[2020-07-03] MEDS: CHOLESTYRAMINE (WITH SUGAR) 4 GM PACKET PO SCH (08:33)
[2020-07-03] MEDS: CLOPIDOGREL 75 MG TAB PO SCH (08:33)
[2020-07-03] MEDS: GABAPENTIN 300 MG CAP PO SCH (08:33)
[2020-07-03] MEDS: ISOSORBIDE MONONITRATE ER 30 MG TAB.ER.24H PO SCH (08:33)
[2020-07-03] MEDS: BACITRACIN ZINC 500 UNIT/GM OINT 28.4 GM TUBE TOPICAL SCH (08:34)
[2020-07-03 10:20] LABS: Protein, Total 4.7 g/dL (6.2-8.2)
[2020-07-03 11:19] LABS: Glucose,Whole Blood 161 mg/dL (75-99)
--- NOTE | 2020-07-03 11:32 | P.DS ---
Providers Date of admission: 06/28/20 11:12 Attending physician: Lynn Duggan Consults: 06/29/20 16:04 Consult Physician Routine Consulting Provider: Clarke Bowen Consult Reason/Comments: pe?? abnormal v/q Do you want consulting provider notified?: Yes 07/01/20 10:55 Consult Physician Routine Consulting Provider: Ericka Moran Consult Reason/Comments: brest pain, patient known to you Do you want consulting provider notified?: Yes 07/02/20 10:24 Consult Physician Routine Consulting Provider: Easton Pereira Consult Reason/Comments: anemia Do you want consulting provider notified?: Yes Primary care physician: Darron Mcgee Hospital Course: Final diagnosis Nausea vomiting diarrhea possible acute gastroenteritis severe dehydration present on admission Anemia GI bleed unlikely because of for according to GI Possible iron deficiency anemia of undetermined etiology possibly nutritional possibly chronic disease related Acute renal failure with acute tubular necrosis and prerenal factors Hyponatremia Increased WBC possibly reactive Code 19 ruled out No evidence of pulmonary embolism Anemia normocytic Gait dysfunction severe Increased platelets History of CAD Diabetes was type II History of DJD History left ankle surgery Gait dysfunction History of cholecystectomy History and nicotine dependence Full code Discharge disposition The patient be discharged in a stable condition guarded prognosis to be admitted large ECF in a stable stable condition. Total time taken 35 minutes. History of present illness This 64-year-old woman with a past medical history multiple medical problems as mentioned earlier was followed by Dr. Nava Mcgee in the outpatient setting. Patient was admitted with the multiple symptomatology as described above. Patient treated symptomatically. GI evaluation was done. GI bleed was thought to be unlikely. Patient was probably had iron deficiency nemia and according to hematology oncology. Recommended close follow-up with hematology oncology. Otherwise PTOT was evaluated and recommended ECF rehab. Patient be sent to ECF rehab for in a stable condition with guarded prognosis. Patient also renal failure responded to IV fluids. Please refer to the multiple labs and multiple progress progress notes for further information. On exam vitals are stable. Cardio S1 and S2 normal. Abdomen soft nontenderwasiffusely weak. Please see the medication reconciliation sheet for list ofations. Patient Condition at Discharge: Poor Plan - Discharge Summary Discharge Rx Participant: Yes New Discharge Prescriptions: New Bacitracin Zinc Oint 1 applic TOPICAL BID applic Pantoprazole Sodium [Protonix] 40 mg PO BID #30 tablet.dr Cholestyramine (with Sugar) [Questran Packet] 4 gm PO BID@1000,1800 PRN packet Acetaminophen Tab [Tylenol] 650 mg PO Q6HR PRN tab PRN Reason: Mild Pain Or Fever > 100.5 Continue sitaGLIPtin [Januvia] 100 mg PO QAM Levocetirizine Dihydrochloride 5 mg PO HS Nitroglycerin Sl Tabs [Nitrostat] 0.4 mg SUBLINGUAL Q5M PRN PRN Reason: Chest Pain Isosorbide Mononitrate ER [Imdur] 30 mg PO QAM Rosuvastatin [Crestor] 20 mg PO HS #30 tab Aspirin 81 mg PO QAM Febuxostat [Uloric] 80 mg PO QAM Gabapentin 600 mg PO TID #3 tab Torsemide [Demadex] 10 mg PO BID Clopidogrel [Plavix] 75 mg PO DAILY traMADol HCl [Ultram] 50 mg PO QID PRN 9 Days #4 tab PRN Reason: Pain Changed Colchicine [Colcrys] 0.6 mg PO DAILY #1 Discontinued Enalapril Maleate [Vasotec] 2.5 mg PO QAM Discharge Medication List Levocetirizine Dihydrochloride 5 mg PO HS 12/21/17 [History] sitaGLIPtin [Januvia] 100 mg PO QAM 12/21/17 [History] Isosorbide Mononitrate ER [Imdur] 30 mg PO QAM 06/29/19 [History] Nitroglycerin Sl Tabs [Nitrostat] 0.4 mg SUBLINGUAL Q5M PRN 06/29/19 [History] Rosuvastatin [Crestor] 20 mg PO HS #30 tab 07/01/19 [Rx] Aspirin 81 mg PO QAM 11/02/19 [History] Febuxostat [Uloric] 80 mg PO QAM 11/02/19 [History] Gabapentin 600 mg PO TID #3 tab 11/30/19 [Rx] Clopidogrel [Plavix] 75 mg PO DAILY 06/28/20 [History] Torsemide [Demadex] 10 mg PO BID 06/28/20 [History] Acetaminophen Tab [Tylenol] 650 mg PO Q6HR PRN tab 07/03/20 [Rx] Bacitracin Zinc Oint 1 applic TOPICAL BID applic 07/03/20 [Rx] Cholestyramine (with Sugar) [Questran Packet] 4 gm PO BID@1000,1800 PRN packet 07/03/20 [Rx] Colchicine [Colcrys] 0.6 mg PO DAILY #1 07/03/20 [Rx] Pantoprazole Sodium [Protonix] 40 mg PO BID #30 tablet.dr 07/03/20 [Rx] traMADol HCl [Ultram] 50 mg PO QID PRN 9 Days #4 tab 07/03/20 [Rx] Follow up Appointment(s)/Referral(s): Darron Mcgee MD [Primary Care Provider] - 1-2 days Activity/Diet/Wound Care/Special Instructions: Diet cardiac Activity as tolerated follow-up with Dr. Mcgee is advised
[2020-07-03] MEDS ORDERED: FOLIC ACID 1 MG TAB PO SCH (11:45)
--- NOTE | 2020-07-03 12:34 | P.PN ---
Subjective Progress Note Date: 07/03/20 Principal diagnosis: QUINN, anemia In f/u today pt has no acute c/o. Denies any bleeding, has easy bruising Objective - Vital Signs Vital signs: Vital Signs Temp 98.4 F 07/03/20 05:08 Pulse 94 07/03/20 05:08 Resp 17 07/03/20 05:08 BP 105/56 07/03/20 05:08 Pulse Ox 95 07/03/20 05:11 Intake & Output 07/02/20 07/03/20 07/03/20 18:59 06:59 18:59 Intake Total 950 240 Balance 950 240 Weight 106 kg 110 kg Intake: Oral 950 240 Other: Voiding Method Bedpan Bedpan Bedpan # Voids 1 1 - Constitutional General appearance: Present: cooperative, morbidly obese, no acute distress - EENT Eyes: Present: anicteric sclerae, EOMI ENT: Present: hearing grossly normal - Respiratory Details: resp even and unlabored at rest - Musculoskeletal Musculoskeletal: Present: generalized weakness - Psychiatric Psychiatric: Present: A&O x's 3, appropriate affect, intact judgment & insight - Labs CBC & Chem 7: 07/02/20 04:30 07/01/20 05:33 Labs: Abnormal Lab Results - Last 24 Hours (Table) 07/02/20 07/02/20 07/02/20 Range/Units 04:30 17:07 20:24 POC Glucose (mg/dL) 188 H 126 H (75-99) mg/dL Ferritin 341.4 H (10.0-291.0) ng/mL Total Protein (PEP) (6.2-8.2) g/dL Vitamin D 25-Hydroxy (30.0-100.0) ng/mL Free [place] LC, Quant (0.33-1.94) mg/dL Free [place] LC, Quant (0.57-2.63) mg/dL 07/03/20 07/03/20 07/03/20 Range/Units 05:31 05:31 07:11 POC Glucose (mg/dL) 149 H (75-99) mg/dL Ferritin (10.0-291.0) ng/mL Total Protein (PEP) 4.7 L (6.2-8.2) g/dL Vitamin D 25-Hydroxy 24.8 L (30.0-100.0) ng/mL Free [place] LC, Quant 3.50 H (0.33-1.94) mg/dL Free Lambda LC, Quant 3.11 H (0.57-2.63) mg/dL 07/03/20 Range/Units 11:17 POC Glucose (mg/dL) 161 H (75-99) mg/dL Ferritin (10.0-291.0) ng/mL Total Protein (PEP) (6.2-8.2) g/dL Vitamin D 25-Hydroxy (30.0-100.0) ng/mL Free [place] LC, Quant (0.33-1.94) mg/dL Free Lambda LC, Quant (0.57-2.63) mg/dL Assessment and Plan (1) Anemia in chronic kidney disease Narrative/Plan: Recommend pt get back on track with her iron infusions (she is intolerant to oral iron) and epo injections through her Catalyst Impregnator. Anemia work up ordered, iron and ferritin are adequate, no supplement needed at present. Folic acid low, supplement started, encouraged pt to continue daily. Still pending SPEP and immunofixation-suspicion low for paraproteinemia but, will follow until all labs resulted. Transfuse for Hgb<7 unless symptomatic. Hgb stable today Current Visit: Yes Status: Chronic Priority: Medium Code(s): N18.9 - CHRONIC KIDNEY DISEASE, UNSPECIFIED; D63.1 - ANEMIA IN CHRONIC KIDNEY DISEASE SNOMED Code(s): 129645069 Plan: Pt will f/u re: breast pain as prescribed by Dr. Moran
--- NOTE | 2020-07-04 09:32 | CDI ---
Documentation Clarification Form Date: 07/04/2020 09:24:34 AM From: Huong Sutherland RN, CCDS Admit Date: 06/28/2020 11:12:00 AM Patient Name: Helena Edwards Visit Number: [id number] Discharge Date: 07/03/2020 04:06:00 PM ATTENTION: The Clinical Documentation Specialists (CDI) and [facility] Coding Staff appreciate your assistance in clarifying documentation. Please respond to the clarification below the line at the bottom and electronically sign. The CDI & [facility] Coding staff will review the response and follow-up if needed. Please note: Queries are made part of the Legal Health Record. If you have any questions, please contact the author of this message via ITS. Dr. Lynn Duggan CKD is documented in the pulmonary consult and subsequent progress notes starting on 07/01. Please provide further specificity of the stage of CKD if known. History/Risk Factors: Coronary artery disease, Diabetes Mellitus, Chronic kidney disease, Clinical Indicators: 64-year-old female present to ED on 11/28 via [place] with complaint of generalized weakness and diarrhea for past week. She felt like she was a bit dehydrated. 06/30 Vital signs 113/58 78 18 982 98 % 2/L NC 11/23/19 BUN 35, CR 1.21, GFR 47 06/28/20 BUN 41, CR 2.03, GFR 25 06/29/20 BUN 38, CR 1.8, GFR 28.8 07/01/20 BUN 18.0, CR 1.0, GFR 58.7 Treatment: Monitor Labs: BUN, CR, Lytes .9NS 1,000 mls bolus 06/28 In order to capture the severity of condition, please clarify the stage of the CKD, if known: CKD Stage 1 (GFR > 90) CKD Stage 2 (GFR 60-89) CKD Stage 3 (GFR 30-59) CKD Stage 4 (GFR 15-29) Other, please specify Unable to determine (Last Revision: November 2019) CKD Stage 2 (GFR 60-89) [facility]
[2020-07-05 15:37] LABS: Methylmalonic Acid 0.76 umol/L (<0.40)
--- NOTE | 2020-07-06 07:03 | CDI ---
Documentation Clarification Form Date: 07/06/20 From: Sharlene Sierra Phone: If you have a question about this query, please contact Maci Toro, Elementary Education Teacher at [phone] between 8am and 5pm. Admit Date: 06/28/20 Discharge Date: 07/03/20 Patient Name: MARVIN SAAB Visit Number: [id number] ATTENTION: The Clinical Documentation Specialists (CDI) and [facility] Coding Staff appreciate your assistance in clarifying documentation. Please respond to the clarification below the line at the bottom and electronically sign. The CDI & [facility] Coding staff will review the response and follow-up if needed. Please note: Queries are made part of the Legal Health Record. If you have any questions, please contact the author of this message via ITS. Dear Dr. Lynn Duggan, CHF is documented in the H&P. History/Risk Factors: hx of [place] x2, dehydration, acute gastroenteritis, HTN w heart failure and CKD II, dehydration, ATN, BI 41.6 in morbid obesity, hyponatremia, anemia in CKD, DM w CKD & neuropathy, adult failure to thrive, CAD Clinical Indicators: Congestive heart failure, myocaridal infarction x 2.S1, S2 muffled. VS/Pulse OX: T-97.5, P-79, R-16, BP-117/68, O2 SAT-97/93 BNP: none 06/30/19 Echocardiogram Results: Overall left ventricular systolic function is low-normal with an EF between 50-55%. Diastolic filling pattern is normal for the age of the patient 11.83. 06/28/20 Chest X Ray: Chronic changes without new acute process identified. Treatment: Demadex 10 mg PO BID, In your professional opinion, can you please clarify the type of chronic CHF if known? Systolic Heart Failure Diastolic Heart Failure Systolic & Diastolic Heart Failure Unable to Determine Other, please specify Diastolic Heart Failure MTDD
== END 2020-07-03 16:06 | DRG 640 ==
LOC: EC 07:45 → 6NMEDSUR 11:12
PROVIDERS: ADMIT Hospitalist; ATTEND Hospitalist
DX: E86.0 Dehydration (principal); N17.0 Acute kidney failure with tubular necrosis; I13.0 Hypertensive heart and chronic kidney disease with heart failure and stage 1 through stage 4 chronic kidney disease, or unspecified chronic kidney disease; Z68.41 Body mass index [BMI] 40.0-44.9, adult; I50.32 Chronic diastolic (congestive) heart failure; E87.1 Hypo-osmolality and hyponatremia; E87.2 Acidosis; D63.1 Anemia in chronic kidney disease; K52.9 Noninfective gastroenteritis and colitis, unspecified; R62.7 Adult failure to thrive; E11.22 Type 2 diabetes mellitus with diabetic chronic kidney disease; E11.40 Type 2 diabetes mellitus with diabetic neuropathy, unspecified; E66.01 Morbid (severe) obesity due to excess calories; Z20.828 Contact with and (suspected) exposure to other viral communicable diseases; E87.8 Other disorders of electrolyte and fluid balance, not elsewhere classified; D50.9 Iron deficiency anemia, unspecified; I25.10 Atherosclerotic heart disease of native coronary artery without angina pectoris; N18.2 Chronic kidney disease, stage 2 (mild); I44.0 Atrioventricular block, first degree; E78.5 Hyperlipidemia, unspecified; N60.12 Diffuse cystic mastopathy of left breast; N60.11 Diffuse cystic mastopathy of right breast; N64.4 Mastodynia; N64.81 Ptosis of breast; G47.30 Sleep apnea, unspecified; I25.2 Old myocardial infarction; M10.9 Gout, unspecified; K57.30 Diverticulosis of large intestine without perforation or abscess without bleeding; R26.9 Unspecified abnormalities of gait and mobility; M19.90 Unspecified osteoarthritis, unspecified site; M54.9 Dorsalgia, unspecified; M62.81 Muscle weakness (generalized); H91.90 Unspecified hearing loss, unspecified ear; H54.7 Unspecified visual loss; Z79.82 Long term (current) use of aspirin; Z79.02 Long term (current) use of antithrombotics/antiplatelets; Z79.84 Long term (current) use of oral hypoglycemic drugs; Z79.899 Other long term (current) drug therapy; Z87.891 Personal history of nicotine dependence; Z87.81 Personal history of (healed) traumatic fracture; Z90.49 Acquired absence of other specified parts of digestive tract; Z87.19 Personal history of other diseases of the digestive system; Z87.39 Personal history of other diseases of the musculoskeletal system and connective tissue; Z87.311 Personal history of (healed) other pathological fracture; Z90.710 Acquired absence of both cervix and uterus; Z87.42 Personal history of other diseases of the female genital tract; Z90.89 Acquired absence of other organs; Z98.51 Tubal ligation status; Z98.891 History of uterine scar from previous surgery; Z71.3 Dietary counseling and surveillance; Z98.890 Other specified postprocedural states; Z88.1 Allergy status to other antibiotic agents; Z88.2 Allergy status to sulfonamides; Z91.048 Other nonmedicinal substance allergy status; Z83.3 Family history of diabetes mellitus; Z82.49 Family history of ischemic heart disease and other diseases of the circulatory system; Z80.41 Family history of malignant neoplasm of ovary; Z80.0 Family history of malignant neoplasm of digestive organs; Z80.1 Family history of malignant neoplasm of trachea, bronchus and lung; Z80.8 Family history of malignant neoplasm of other organs or systems; Z80.3 Family history of malignant neoplasm of breast; Z82.69 Family history of other diseases of the musculoskeletal system and connective tissue
CPT/HCPCS: 36415; 51701; 71046; 74176; 78582; 80048; 80053; 81003; 82150; 82272; 82306; 82607; 82652; 82668; 82728; 82746; 83540; 83550; 83605; 83615; 83690; 83883; 83921; 84165; 84484; 84550; 84591; 85025; 85045; 85379; 85610; 85652; 85730; 86140; 86334; 87324; 87502; 93005; 96360; 99285

== ENCOUNTER 2020-08-26 08:55 | Emergency (ER) | payer MEDICARE ==
[2020-08-26 09:13] VITALS: RESP 16; TEMP 97.7
[2020-08-26] MEDS ORDERED: HYDROmorphone 0.5 MG/0.5 ML SYRINGE IVP STA (09:23)
[2020-08-26] MEDS ORDERED: ONDANSETRON 4 MG/2 ML VIAL IVP STA (09:23)
--- NOTE | 2020-08-26 09:37 | ED ---
Fall HPI - General Chief Complaint: Fall Stated Complaint: Fall Time Seen by Provider: 08/26/20 09:18 Source: patient, EMS Mode of arrival: EMS Limitations: no limitations - History of Present Illness Initial Comments: This is a 64-year-old female presents emergency department via EMS chief complaint of a fall. Patient states she's getting into her shower this morning when she states that her legs buckled falling onto her knees. She had no head injury no hip or back pain. Patient states that she primary has right knee pain but also her left hurts. Patient was brought to emergency from via [facility] from [place] patient denies any other complaints from the fall. - Related Data Home Medications Medication Instructions Recorded Confirmed Levocetirizine Dihydrochloride 5 mg PO HS 12/21/17 08/26/20 sitaGLIPtin [Januvia] 100 mg PO QAM 12/21/17 08/26/20 Isosorbide Mononitrate ER [Imdur] 30 mg PO QAM 06/29/19 08/26/20 Nitroglycerin Sl Tabs [Nitrostat] 0.4 mg SUBLINGUAL Q5M PRN 06/29/19 08/26/20 Aspirin 81 mg PO QAM 11/02/19 08/26/20 Febuxostat [Uloric] 80 mg PO QAM 11/02/19 08/26/20 Clopidogrel [Plavix] 75 mg PO DAILY 06/28/20 08/26/20 Torsemide [Demadex] 10 mg PO BID 06/28/20 08/26/20 Previous Rx's Medication Instructions Recorded Rosuvastatin [Crestor] 20 mg PO HS #30 tab 07/01/19 Gabapentin 600 mg PO TID #3 tab 11/30/19 Acetaminophen Tab [Tylenol] 650 mg PO Q6HR PRN tab 07/03/20 Colchicine [Colcrys] 0.6 mg PO DAILY #1 07/03/20 Allergies Allergy/AdvReac Type Severity Reaction Status Date / Time adhesive Allergy Rash/Hives Verified 08/26/20 10:42 ofloxacin [From Floxin] Allergy Anaphylaxis Verified 08/26/20 10:42 Sulfa (Sulfonamide Allergy Anaphylaxis Verified 08/26/20 10:42 Antibiotics) Review of Systems ROS Statement: Those systems with pertinent positive or pertinent negative responses have been documented in the HPI. ROS Other: All systems not noted in ROS Statement are negative. Past Medical History Past Medical History: Coronary Artery Disease (CAD), Diabetes Mellitus, Hype rlipidemia, Osteoarthritis (OA), Renal Disease Additional Past Medical History / Comment(s): states back pain, current "creacked bone in left ankle wrapped with [place] wrap CURRENTLY USING CRUTCHES broke left ankle aug 26 2018. hurt left shoulder and is going to PT for it Last Myocardial Infarction Date:: 06/03/2019 History of Any Multi-Drug Resistant Organisms: None Reported Past Surgical History: Appendectomy, Section, Cholecystectomy, Heart Catheterization, Tonsillectomy, Tubal Ligation Additional Past Surgical History / Comment(s): carpal tunnel both wrists, shoulder surgery, ankle reconstruction. Past Anesthesia/Blood Transfusion Reactions: No Reported Reaction Past Psychological History: No Psychological Hx Reported Smoking Status: Former smoker Past Alcohol Use History: Occasional Past Drug Use History: None Reported - Past Family History Mother Family Medical History: Cancer, Coronary Artery Disease (CAD), Diabetes Mellitus Additional Family Medical History / Comment(s): ovarian cancer Father Family Medical History: Coronary Artery Disease (CAD), Diabetes Mellitus Brother(s) Additional Family Medical History / Comment(s): Brother #1 (Adam) colon cancer, liver cancer, lung cancer, diabetic, brain mets. Brother #2 (Elie) colon cancer, lung cancer with brain mets Sister(s) Family Medical History: Fibromyalgia Additional Family Medical History / Comment(s): Sister #1 (Desi) ovarian cancer and breast cancer with brain mets. Sister #2 (Celsa) stomach cancer, ovarian cancer General Exam Limitations: physical limitation General appearance: alert, in no apparent distress Head exam: Present: atraumatic, normocephalic, normal inspection Neck exam: Present: normal inspection, full ROM. Absent: tenderness, meningismus, lymphadenopathy Respiratory exam: Present: normal lung sounds bilaterally. Absent: respiratory distress, wheezes, rales, rhonchi, stridor Cardiovascular Exam: Present: regular rate, normal rhythm, normal heart sounds. Absent: systolic murmur, diastolic murmur, rubs, gallop, clicks Extremities exam: Present: other (Right knee there is severe times with palpation, limited range of motion, there is no hip or pelvic tenderness, there is no distal leg tenderness pulses are equal bilaterally) Neurological exam: Present: alert, oriented X3, CN II-XII intact, reflexes normal. Absent: motor sensory deficit Course Vital Signs 08/26/20 08:59 Temperature 97.7 F Pulse Rate 78 Respiratory 16 Rate Blood Pressure 112/51 O2 Sat by Pulse 94 L Oximetry Procedures - Orthopedic Splinting/Casting Injury #1 Side: right Lower Extremity Injury Location: long leg Lower Extremity Immobilizer: posterior splint, synthetic pre-padded splint Medical Decision Making - Medical Decision Making Case discussed with Luis arthur for Dr. Cleary on-call orthopedics recommends the patient be transferred to another facility. Case discussed with Dr. Gaming who accepts transfer. Case discussed with [facility] transfer team accepts transfer - Lab Data Result diagrams: 08/26/20 09:46 08/26/20 09:46 Lab Results 08/26/20 08/26/20 08/26/20 Range/Units 09:46 09:46 09:46 WBC 13.1 H (3.8-10.6) k/uL RBC 3.81 (3.80-5.40) m/uL Hgb 10.0 L (11.4-16.0) gm/dL Hct 32.3 L (34.0-46.0) % MCV 84.9 (80.0-100.0) fL MCH 26.3 (25.0-35.0) pg MCHC 31.0 (31.0-37.0) g/dL RDW 18.9 H (11.5-15.5) % Plt Count 319 (150-450) k/uL MPV 8.2 Neutrophils % 69 % Lymphocytes % 20 % Monocytes % 5 % Eosinophils % 4 % Basophils % 1 % Neutrophils # 9.0 H (1.3-7.7) k/uL Lymphocytes # 2.6 (1.0-4.8) k/uL Monocytes # 0.7 (0-1.0) k/uL Eosinophils # 0.5 (0-0.7) k/uL Basophils # 0.1 (0-0.2) k/uL Hypochromasia Moderate Poikilocytosis Slight Anisocytosis Slight PT 10.1 (9.0-12.0) sec INR 1.0 (<1.2) APTT 21.0 L (22.0-30.0) sec Sodium 137 (137-145) mmol/L Potassium 5.3 H (3.5-5.1) mmol/L Chloride 105 (98-107) mmol/L Carbon Dioxide 25 (22-30) mmol/L Anion Gap 7 mmol/L BUN 33 H (7-17) mg/dL Creatinine 1.78 H (0.52-1.04) mg/dL Est GFR (CKD-EPI)AfAm 34 (>60 ml/min/1.73 sqM) Est GFR (CKD-EPI)NonAf 29 (>60 ml/min/1.73 sqM) Glucose 163 H (74-99) mg/dL Calcium 8.8 (8.4-10.2) mg/dL Total Bilirubin 0.5 (0.2-1.3) mg/dL AST 35 (14-36) U/L ALT 25 (4-34) U/L Alkaline Phosphatase 36 L (38-126) U/L Total Protein 6.4 (6.3-8.2) g/dL Albumin 3.7 (3.5-5.0) g/dL - EKG Data -: EKG Interpreted by Tx EKG Comments: EKG performed at 9:22 sinus rhythm with first-degree AV block rate of 79 AK 234 QRS 152 QT/QTC 450/516 Disposition Clinical Impression: Fall, Fracture of distal end of right femur Disposition: OTHER INSTITUTION NOT DEFINED Referrals: Darron Mcgee MD [Primary Care Provider] - 1-2 days Time of Disposition: 10:55 - Out of Hospital Transfer - Req. Specs Out of Hospital Transfer - Requested Specifics: Other Emergency Center ([facility])
--- NOTE | 2020-08-26 10:23 | XR ---
EXAMINATION TYPE: XR chest 1V DATE OF EXAM: 08/26/2020 HISTORY: Shortness of breath. COMPARISON: 06/28/2020 TECHNIQUE: Single view of the chest is submitted. FINDINGS: Demonstrated are scattered senescent parenchymal change. Left infrahilar patchy density may reflect underlying pneumonia. Correlate clinically. The heart is stable. Hilar and mediastinal structures are within normal limits. Degenerative changes are seen of the dorsal spine. IMPRESSION: 1. Left infrahilar patchy density may reflect underlying pneumonia. Correlate clinically.
--- NOTE | 2020-08-26 10:33 | XR ---
EXAMINATION TYPE: XR knee complete 3 views bilateral, XR femur 2 views RT DATE OF EXAM: 08/26/2020 COMPARISON: NONE HISTORY: 64-year-old female with fall and pain FINDINGS: Right: There is a mildly comminuted oblique fracture of the distal femoral metadiaphysis. No articular exten khushbu is identified. There is a 1.5 cm the lateral displacement 2.3 cm of posterior displacement. The quadriceps tendon is not well delineated on the lateral view. Underlying joint effusion is present. S ome redundancy of the patellar tendon is noted on the lateral view as well. Anterior soft tissue swel ling. Tricompartmental degenerative change at least moderate in the medial compartment. Additional mo derate degenerative change at the right hip. No acute fracture. More proximal to mid femur. Left: Tricompartmental degenerative change, at least moderate in the medial and patellofemoral compartments . Loose bodies are chronically fragmented spurs superior aspect of the patella. Anterior soft tissue swelling. No sizable joint effusion. Mild anterior soft tissue swelling. Old screw tracks within the visualized proximal femur. IMPRESSION: RIGHT: 1. Mildly comminuted, oblique fracture distal femoral metadiaphysis with 1.5 cm of lateral and 2.3 cm of posterior displacement. No intra-articular extension identified. 2. The quadriceps tendon is not well delineated on the lateral view. Consider MRI to determine integr ity of the extensor mechanism. 3. Tricompartment osteoarthrosis at the knee and moderate OA at the right hip. LEFT: 4. Tricompartmental osteoarthrosis. 5. Mild anterior soft tissue swelling. No acute osseous body seen.
[2020-08-26 10:35] LABS: Anisocytosis Slight; Basophils # (A) 0.1 k/uL (0-0.2); Basophils % (A) 1 %; Eosinophils # (A) 0.5 k/uL (0-0.7); Eosinophils % (A) 4 %; HCT 32.3 % (34.0-46.0); Hypochromasia Moderate; Lymphocytes # (A) 2.6 k/uL (1.0-4.8); Lymphocytes % (A) 20 %; MCH 26.3 pg (25.0-35.0); MCV 84.9 fL (80.0-100.0); Mean Platelet Volume 8.2; Monocytes # (A) 0.7 k/uL (0-1.0); Monocytes % (A) 5 %; Neutrophils % (A) 69 %; Platelet Count 319 k/uL (150-450); Poikilocytosis Slight; RBC 3.81 m/uL (3.80-5.40); RDW 18.9 % (11.5-15.5); WBC 13.1 k/uL (3.8-10.6)
[2020-08-26 10:44] LABS: Albumin 3.7 g/dL (3.5-5.0); Calcium 8.8 mg/dL (8.4-10.2); Potassium 5.3 mmol/L (3.5-5.1); Total Bilirubin 0.5 mg/dL (0.2-1.3); Total Protein 6.4 g/dL (6.3-8.2)
[2020-08-26 10:51] LABS: Prothrombin Time 10.1 sec (9.0-12.0)
[2020-08-26 11:31] VITALS: BP 101/58; PULSE 80
[2020-08-26] MEDS ORDERED: HYDROmorphone 0.5 MG/0.5 ML SYRINGE IM STA (11:33)
[2020-08-26] MEDS ORDERED: ONDANSETRON 4 MG/2 ML VIAL IM STA (11:33)
== END 2020-08-26 11:43 | disposition other institution (70) ==
LOC: EC 08:55
DX: S72.491A Other fracture of lower end of right femur, initial encounter for closed fracture (principal); M25.562 Pain in left knee; E11.9 Type 2 diabetes mellitus without complications; E78.5 Hyperlipidemia, unspecified; M19.90 Unspecified osteoarthritis, unspecified site; I25.10 Atherosclerotic heart disease of native coronary artery without angina pectoris; Z79.01 Long term (current) use of anticoagulants; Z79.84 Long term (current) use of oral hypoglycemic drugs; Z79.82 Long term (current) use of aspirin; Z79.899 Other long term (current) drug therapy; Z88.1 Allergy status to other antibiotic agents; Z88.2 Allergy status to sulfonamides; Z91.048 Other nonmedicinal substance allergy status; Z87.891 Personal history of nicotine dependence; Z95.5 Presence of coronary angioplasty implant and graft; W18.30XA Fall on same level, unspecified, initial encounter; Y93.E1 Activity, personal bathing and showering; Y92.002 Bathroom of unspecified non-institutional (private) residence as the place of occurrence of the external cause
CPT/HCPCS: 36415; 93005; 80053; 85025; 85610; 85730; 73562; 73552; 71045; 99285; 96374; 96375; 96372 ×2; 29505; J2405; J1170

== ENCOUNTER → 2021-02-17 | Outpatient (CLI) | payer MEDICARE, OTHER ==
--- NOTE | 2021-02-18 09:32 | P.ARTDOP ---
Arterial Doppler LOWER EXTREMITY ARTERIAL DOPPLER: DATE OF SERVICE: 02/17/2021 Reason for study: Left heel ulcer. Doppler waveforms: Multiphasic bilaterally throughout with good digital waveforms. Pulse volume recording: []. Pressure gradients: None. Ankle-brachial indices: Greater than 1 on the left and cannot be occluded on the right. Toe brachial indices: 0.8 on the right, 0.63 on the left Impression: Normal study.
== END | disposition home or self-care (01) ==
LOC: RADUSWWP 08:44
PROVIDERS: ATTEND Thoracic Surgery (Cardiothoracic Vascular Surgery)
DX: L97.429 Non-pressure chronic ulcer of left heel and midfoot with unspecified severity (principal)
CPT/HCPCS: 93922